=== PATIENT | female | born 1950 | race Caucasian/White ===

== ENCOUNTER 2023-07-11 07:18 | Outpatient (OUT) | payer MEDICARE, OTHER, MEDICAID, SELFPAY ==
[2023-07-11 08:36] LABS: Creatinine Urine Random 157.54 mg/dL (20.00-300.00); Microalbum Creatinine Ratio Ur 16.5 mg/g (0.0-29.9); Microalbumin Urine Random 2.6 mg/dL (<=30.0)
[2023-07-11 09:02] LABS: Alanine Aminotransferase 36 U/L (14-59); Albumin Globulin Ratio 1.1; Alkaline Phosphatase 55 U/L (46-116); Anion Gap 11.8; Aspartate Amino Transferase 16 U/L (15-37); BUN Creatinine Ratio 18.5; Bilirubin Total 0.4 mg/dL (0.2-1.0); Calcium 9.6 mg/dL (8.5-10.1); Carbon Dioxide 30.3 mmol/L (21.0-32.0); Chloride 101 mmol/L (98-107); Chol HDL Ratio 2.5; Cholesterol 157 mg/dL (<=200); Estimated GFR (African America >60 (>=60); Estimated GFR (Non-African Ame 60 (>=60); Globulin 3.7 g/dL; Glucose 133 mg/dL (74-106); HDL Cholesterol 62 mg/dL (40-60); Potassium 4.1 mmol/L (3.5-5.1); Sodium 139 mmol/L (136-145); Total Protein 7.7 g/dL (6.4-8.2); Triglycerides 153 mg/dL (<=150); VLDL CHOLESTEROL 30.6 mg/dL
[2023-07-11 09:52] LABS: Basophils Percent Auto 0.5 % (0.2-2.0); Eosinophils Absolute Auto 0.2 10^3/uL (0.0-0.7); Hematocrit 38.8 % (36.0-48.0); Hemoglobin 12.2 g/dL (12.0-16.0); Immature Granulocytes Abs Auto 0.03 10^3/uL (0.00-0.03); Immature Granulocytes Pct Auto 0.5 % (0.0-0.5); Lymphocytes Absolute Auto 1.9 10^3/uL (1.2-3.8); Lymphocytes Percent Auto 33.4 % (20.5-60.0); Mean Corpuscular HGB Conc 31.4 g/dL (29.9-35.2); Mean Corpuscular Hemoglobin 31.1 pg (26.7-34.0); Mean Platelet Volume 10.4 fL (9.5-13.5); Monocytes Absolute Auto 0.7 10^3/uL (0.3-0.8); Monocytes Percent Auto 11.6 % (1.7-12.0); Neutrophils Absolute Auto 2.9 10^3/uL (1.4-6.5); Platelet Count 269 10^3/uL (150-450); Red Blood Count 3.92 10^6/uL (4.20-5.40); Red Cell Distribution Width 13.1 % (11.0-15.0); White Blood Count 5.8 10^3/uL (4.0-11.0)
== END 2023-07-11 07:19 | disposition home or self-care (01) ==
LOC: LAB 07:28
DX: Z51.81 Encounter for therapeutic drug level monitoring (principal); E11.42 Type 2 diabetes mellitus with diabetic polyneuropathy; E78.2 Mixed hyperlipidemia; E03.9 Hypothyroidism, unspecified; E55.9 Vitamin D deficiency, unspecified; E53.8 Deficiency of other specified B group vitamins
CPT/HCPCS: 36415; 80053; 80061; 82043; 82306; 82570; 82607; 85025

== ENCOUNTER 2024-07-18 07:36 | Outpatient (OUT) | payer MEDICARE, OTHER, MEDICAID, SELFPAY ==
--- OUTSIDE RECORDS SUMMARY | 2024-07-18 07:42 | XMS_ITS | CCD ---
Author Organization [facility] Care Team Providers Care Child Care Lead Teacher Name Role Phone DR HAYDE BERGER Admitting Unavailable DR HAYDE BERGER Attending Unavailable MARIANN IYER Primary Care Unavailable DR HAYDE BERGER Consulting Unavailable GIGI CHATTERJEE Consulting Unavailable DO Mariann Lynn Primary Care Provider DO Mariann Lynn Attending Provider DO Mariann Lynn Primary Care Provider DO Guille Ruiz Attending Provider [phone] DO Billy Bang Emergency Provider DO Mariann Lynn Primary Care Provider Self, Referral Attending Provider Unavailable DO Mariann Lynn Attending Provider Mariann Lynn Primary Care Unavailable Billy Bang Admitting Unavailable Billy Bang Attending Unavailable Mariann Lynn Admitting Unavailable Mariann Lynn Primary Care Unavailable Mariann Lynn Attending Unavailable Self, Referral Admitting Unavailable Self, Referral Attending Unavailable Mariann Lynn Primary Care Unavailable Unavailable Primary Care Provider Unavailabl VICTORINO Cross Referring Unavailable KEENAN WHITFIELD Referring Unavailab VICTORINO Rodriguez Attending Unavailable VICTORINO REMY Admitting Unavailable VICTORINO REMY Referring Unavailable VICTORINO REMY Attending Unavailable Mariann Lynn DO Unavailable Mariann Lynn DO Primary Care Provider Sameer Loera DO Unavailable Fabiola DPMSebastian Unavailable MARIANN LYNN Attending MARIANN Ramírez Referring UnavailMARIANN Gracia Attending UnavailMARIANN Gracia Referring Unavailab SEBASTIAN Monroe Attending Unavailable AMBAR PARKER Attending Unavailable SBEASTIAN HICKS Attending Unavailable SEBASTIAN HICKS Attending Unavailable GUILLE RUIZ Attending Unavailable MARIANN LYNN Attending MARIANN Ramírez Referring UnavailESTELA Pedro Attending Unavailable ESTELA DELGADO Attending Unavailable Medications Current Medications Medication Drug Class(es) Dates Sig (Normalized) Sig (Original) acetaminophen 500 mg oral capsule (20 sources) Start: 07-10-2023 take 1 capsule by mouth every eight hours as needed for pain and pain and arthritis and arthritis Acetaminophen 500 MG capsule Indications: Arthritis Take 1 capsule (500 mg) by mouth every 8 (eight) hours if needed for mild pain or moderate pain 100 capsule 3 07/10/2023 Active Start: 11-26-2017 End: 07-07-2021 acetaminophen (TYLENOL) 500 mg tablet Q6H 07/07/2021 Active atorvastatin 40 mg oral tablet (20 sources) HMG-CoA Reductase Inhibitor Start: 11-26-2017 take 1 tablet by mouth in the morning atorvastatin (Lipitor) 40 MG tablet Indications: Mixed hyperlipidemia (CMS/HCC) TAKE 1 TABLET(40 MG) BY MOUTH IN THE MORNING 90 tablet 3 09/20/2023 Active benoxinate hydrochloride 4 mg/ml / fluorescein sodium 3 mg/ml ophthalmic solution (2 sources) Diagnostic Dye Start: 01-03-2024 End: 01-03-2024 fluorescein-benoxina te 0.3-0.4 % 1 Drop (FLURESS) Start: 01-03-2024 End: 01-03-2024 1 Drop, BOTH EYES, DIRECT ED, Starting on [place] 01/03/24 at 1100, Until [place] 01/03/24 at 2259, Administer for applanation tonometry. In the event of a Fluress shortage, administer 1 drop of Ana-Fluor into both eyes as directed for applanation tonometry., OPHT CLINIC MED ORDERS Benzocaine (5 sources) Standardized Chemical Allergen Start: 07-07-2021 Benzocaine (Orajel) 7.5 % Gel Active EACH MUCOUS MEM Four times daily July 07, 2021 1:00am Start: 07-07-2021 Benzocaine (Or ajel) 7.5 % Gel Active EACH MUCOUS MEM Four times daily July 07, 2021 12:00am beta-carotene,A,-vits C,E/mins (OCUVITE ORAL) (3 sources) beta-carotene,A, -vits C,E/mins (OCUVITE ORAL) Take by mouth. Active bismuth subsalicylate 35 mg/ml oral suspension (5 sources) Bismuth Start: 022 take 1048 mg by mouth once daily Bismuth Subsalicylate (Bismuth) 525 mg/15 mL Suspension Active 1048 MG PO Daily July 07, 2021 1:00am calcium carbonate 1500 mg / cholecalciferol 200 unt oral capsule (20 sources) Vitamin D Start: 018 take 1 tablet by mouth twice daily Calcium Carbonate-Vitamin D3 (Calcium 600 + D(3)) 600 mg calcium- 200 unit Capsule Active 1 TAB PO Twice daily November 26, 2017 12:00am Calcium Carb-Cho lecalciferol 600-200 MG-UNIT tablet every 12 (twelve) hours. Active cholecalciferol 0.125 mg oral capsule (20 sources) Vitamin D Start: 07-10-2023 End: 07-09-2024 take 1 capsule by mouth once daily cholecalciferol 125 MCG (5000 UT) capsule Indications: Vitamin D deficiency Take 1 capsule (125 mcg) by mouth Daily 100 capsule 3 07/10/2023 07/09/2024 Active Start: 11-26-2017 cholecalcifero l (VITAMIN D3) 5,000 unit tab 5,000 Units. 11/26/2017 Active Start: 11-26-2017 take 1 tablet by neli th once daily Cholecalciferol (Vitamin D3) (Vitamin D3) 5,000 unit Tablet Active 5000 UNIT PO Daily November 26, 2017 12:00am cyclobenzaprine hydrochloride 5 mg oral tablet (20 sources) Muscle Relaxant Start: 11-26-2017 take 1 tablet by mouth at bedtime cyclobenzaprine (Flexeril) 5 MG tablet Indications: Muscle spasms of neck TAKE 1 TABLET(5 MG) BY MOUTH AT BEDTIME 90 tablet 3 11/22/2023 Active dextromethorphan hydrobromide 2 mg/ml / guaiFENesin 20 mg/ml oral solution (5 sources) Uncompetitive V-ofxfce-C-asparta te Receptor Antagonist, Sigma-1 Agonist Start: 07-07-2021 take 1 mL by mouth every four hours Dextromethorphan-Gu aifenesin (Guaifenesin Dm) 10-100 mg/5 mL Syrup Active 5 ML PO Q4H July 07, 2021 1:00am diclofenac sodium 0.01 mg/mg topical gel (20 sources) Nonsteroidal Anti-inflammatory Drug diclofenac sodium 1 % gel as directed Externally Active Docusate (1 source) DOCUSATE SODIUM ORAL Take 500 mg by mouth. Active FLUoxetine 20 mg oral capsule (20 sources) Serotonin Reuptake Inhibitor Start: 07-07-2021 End: 05-05-2025 take 1 capsule by mouth once daily FLUoxetine (PROzac) 20 MG capsule Indications: Anxiety Take 1 capsule (20 mg) by mouth Daily 100 capsule 3 05/05/2024 05/05/2025 Active Garlic preparation (8 sources) Non-Standardized Food Allergenic Extract Start: 07-07-2021 GARLIC Q48H 07/07/2021 Active Start: 07-07-2021 Garlic Active 500 MG PO Q48H July 07, 2021 1:00am Start: 07-07-2021 Garlic Active 500 MG PO Q48H July 07, 2021 12:00am ibuprofen 600 mg oral tablet (5 sources) Nonsteroidal Anti-inflammatory Drug Start: 07-07-2021 take 600 mg by mouth every six hours Ibuprofen Active 600 MG PO Q6H July 07, 2021 1:00am lamoTRIgine 200 mg oral tablet (20 sources) Mood Stabilizer, Anti-epileptic Agent Start: 05-05-2024 take 1 tablet by mouth in the morning lamoTRIgine (LaMICtal) 200 MG tablet Indications: Psychogenic nonepileptic seizure (CMS/HCC) Take 1 tablet (200 mg) by mouth in the morning and 1 tablet (200 mg) before bedtime. 180 tablet 3 05/05/2024 Active Start: 07-11-2023 take 1 tablet by neli th twice daily lamoTRIgine (LaMICtal) 200 MG tablet Indications: Psychogenic nonepileptic seizure (CMS/HCC) TAKE 1 TABLET BY MOUTH TWICE DAILY 180 tablet 3 07/11/2023 Active Start: 11-26-2017 take 200 mg by mouth twice daily Lamotrigine Active 200 MG PO Twice daily November 26, 2017 12:00am levothyroxine sodium 0.075 mg oral tablet (20 sources) l-Thyroxine Start: 07-07-2021 take 1 tablet by mouth before mealtime levothyroxine (Synthroid, Levoxyl) 75 MCG tablet Indications: Hypothyroidism (acquired) (CMS/HCC) Take 1 tablet (75 mcg) by mouth in the morning. Take before meals. 90 tablet 3 07/16/2023 Active Start: 01-02-2019 End: 07-07-2021 take 88 ug by mouth once daily Levothyroxine Discontin ued 88 MCG PO Daily January 02, 2019 12:00am July 07, 2021 6:20pm Start: 11-26-2017 End: 01-02-2019 take 1 tablet by mouth once daily Levothyroxine (Synthroid) 100 mcg Tablet Discontinued 100 MCG PO Daily November 26, 2017 12:00am January 02, 2019 11:41am loratadine 10 mg oral tablet (20 sources) Start: 07-07-2021 End: 07-09-2024 take 1 tablet by mouth once daily loratadine (Claritin) 10 MG tablet Indications: Chronic allergic rhinitis Take 1 tablet (10 mg) by mouth Daily 100 tablet 3 07/10/2023 Active LORazepam 0.5 mg oral tablet (20 sources) Benzodiazepine Start: 11-19-2023 End: 02-08-2024 LORazepam (Ativan) 0.5 MG tablet Indications: Anxiety One tablet the night before appointments and one tablet the day of appointments 2 tablet 11/19/2023 Active memantine hydrochloride 5 mg oral tablet (20 sources) T-cjiggt-A-aspartate Receptor Antagonist Start: 02-25-2024 take 1 tablet by mouth in the morning memantine (Namenda) 5 MG tablet Indications: MCI (mild cognitive impairment) Take 1 tablet (5 mg) by mouth in the morning and 1 tablet (5 mg) before bedtime. 180 tablet 3 02/25/2024 Active Start: 12-30-2018 take 1 tablet by neli th in the morning memantine (Namenda) 5 MG tablet Indications: MCI (mild cognitive impairment) Take 1 tablet (5 mg) by mouth in the morning and 1 tablet (5 mg) before bedtime. 180 tablet 1 07/16/2023 Active take 1 tablet by neli th once daily in the morning, then take 1 tablet by mouth once daily at bedtime memantine (NAMENDA) 5 mg tablet TAKE 1 TABLET BY MOUTH EVERY MORNING AND 1 TABLET EVERY NIGHT AT BEDTIME Active metFORMIN hydrochloride 850 mg oral tablet (20 sources) Biguanide Start: 07-07-2021 take 1 tablet by mouth at mealtime metFORMIN (Glucophage) 850 MG tablet Indications: Type 2 diabetes mellitus with peripheral neuropathy (CMS/HCC) TAKE 1 TABLET(850 MG) BY MOUTH IN THE MORNING AND IN THE EVENING WITH MEALS 180 tablet 3 07/16/2023 Active Start: 11-26-2017 End: 07-07-2021 take 500 mg by mouth twice daily Metformin Discontinued 500 MG PO Twice daily November 26, 2017 12:00am July 07, 2021 6:21pm Multiple Vitamins-Minerals (Centrum Women) tablet (17 sources) Multiple Vitamin s-Minerals (Centrum Women) tablet 1 (one) time each day at the same time. Active Multiple Vitamins-Minerals (OCUVITE ADULT 50+ PO) (17 sources) take 1 tablet by mouth in the morning Multiple Vitamins-Minerals (OCUVITE ADULT 50+ PO) Take 1 tablet by mouth in the morning. Active Multivitamin preparation (5 sources) Start: 12-30-2018 take 1 capsule by mouth once daily in the morning Multivitamin Active 1 CAP PO Every morning December 30, 2018 12:00am Start: 12-30-2018 take 1 capsule by mo uth once daily in the morning Multivitamin Active 1 CAP PO Every morning December 29, 2018 11:00pm naproxen 250 mg oral tablet (20 sources) Nonsteroidal Anti-inflammatory Drug Start: 07-07-2021 take 1 tablet by mouth twice daily at mealtime naproxen (Naprosyn) 250 MG tablet Indications: Chronic gout of multiple sites, unspecified cause , Arthritis TAKE 1 TABLET BY MOUTH TWICE DAILY WITH FOOD OR MILK 100 tablet 2 07/10/2023 Active ofloxacin 3 mg/ml ophthalmic solution (3 sources) Quinolone Antimicrobial Start: 01-03-2024 End: 04-02-2024 take 1 drop(s) into the eye(s) four times daily, then take 1 drop(s) into the eye(s) four times daily ofloxacin (OCUFLOX) 0.3 % ophthalmic solution 1 Drop four times daily. One drop in the OPERATIVE EYE only four times a day starting the day before surgery 10 mL 1 01/03/2024 04/02/2024 Active phenylephrine hydrochloride 25 mg/ml ophthalmic solution (2 sources) alpha-1 Adrenergic Agonist Start: 01-03-2024 End: 01-03-2024 PHENYLephrine 2.5 % 1 Drop (AK-DILATE, STEPHANIE-SYNEPHRINE) Start: 01-03-2024 End: 01-03-2024 1 Drop, BOTH EYES, DIRECT ED, Starting on [place] 01/03/24 at 1100, Until [place] 01/03/24 at 2259, Administer for dilation PROTECT FROM LIGHT, OPHT CLINIC MED ORDERS polyethylene glycol 3350 09278 mg powder for oral solution (8 sources) Osmotic Laxative Start: 07-07-2021 polyethylene glycol 3350 17 gram packet Take 17 g by mouth. 07/07/2021 Active Polyethylene Glycols (17 sources) take 17 g by mouth once daily polyethylene glycol, PEG, 3350 (Glycolax, Miralax) powder Take 17 g by mouth Daily Active sodium fluoride 0.011 mg/mg toothpaste (20 sources) Start: 08-29-2023 PreviDent 5000 Booster Plus 1.1 % paste BRUSH AT BEDTIME- SPIT OUT AND DO NOT RINSE 09/26/2023 Active tropicamide 10 mg/ml ophthalmic solution (2 sources) Anticholinergic Start: 01-03-2024 End: 01-03-2024 tropicamide 1 % 1 Drop (MYDRIACYL) Start: 01-03-2024 End: 01-03-2024 1 Drop, BOTH EYES, DIRECT ED, Starting on Sun01/03/24 at 1100, Until [place] 01/03/24 at 2259, Administer for dilation, OPHT CLINIC MED ORDERS Vit C-E-Zinc Die-Jivxyl-Xyhegf (uvselect [facility]) 50 mg-15 unit- 4.5 mg-2.5 mg Tablet,Chewable (5 sources) Start: 11-26-2017 take 1 tablet by mouth once daily Vit C-E-Zinc Qzo-Coleds-Dpnwir (Ocuvite [facility]) 50 mg-15 unit- 4.5 mg-2.5 mg Tablet,Chewable Active 1 TAB PO Daily November 26, 2017 12:00am Start: 11-26-2017 take 1 tablet by neli th once daily Vit C-E-Zinc Phj-Xppefh-Lazivy ([facility]cuv[facility]) 50 mg-15 unit- 4.5 mg-2.5 mg Tablet,Chewable Active 1 TAB PO Daily November 25, 2017 11:00pm vitamin b12 0.5 mg oral tablet (20 sources) Vitamin B12 Start: 07-10-2023 End: 07-09-2024 take 2 tablets by mouth once daily cyanocobalamin (Vitamin B-12) 500 MCG tablet Indications: Vitamin B12 deficiency Take 2 tablets (1,000 mcg) by mouth Daily 200 tablet 3 07/10/2023 07/09/2024 Active Start: 07-07-2021 cyanocobalamin (VITAMIN B-12) 1,000 mcg tab once daily. 07/07/2021 Active Completed/Discontinued Medications Medication Drug Class(es) Dates Sig (Normalized) Sig (Original) busPIRone hydrochloride 10 mg oral tablet (5 sources) Start: 11-26-2017 End: 12-30-2018 take 10 mg by mouth three times daily Buspirone Discontinued 10 MG PO Three times daily November 26, 2017 12:00am December 30, 2018 9:58am cobamamide 0.1 mg / vitamin b12 5 mg sublingual tablet (5 sources) Vitamin B12 Start: 12-30-2018 End: 07-07-2021 Cyanocobalamin-Alban mamide (B12) 5,000-100 mcg Lozenge Discontinued 1000 MCG SUBLINGUAL Daily December 30, 2018 12:00am July 07, 2021 6:22pm Iron (10 sources) Start: 01-02-2019 End: 07-07-2021 Iron Discontinued 28 MG PO Q48H 0 January 02, 2019 8:13am July 07, 2021 6:27pm Start: 01-02-2019 End: 07-07-2021 Iron Discontinued 28 MG PO Q 48H 0 January 02, 2019 7:13am July 07, 2021 5:27pm Start: 12-30-2018 End: 01-02-2019 take 28 mg by mouth once daily Iron Discontinued 28 MG PO Daily December 30, 2018 12:00am January 02, 2019 11:41am Start: 12-30-2018 End: 01-02-2019 take 28 mg by mouth once daily Iron Discontinued 28 MG PO Daily December 29, 2018 11:00pm January 02, 2019 10:41am Guy-3 Fatty Acids (Fish Oil Concentrate) 1,000 mg Capsule (5 sources) Start: 11-26-2017 End: 07-07-2021 take 1 capsule by mouth once daily Guy-3 Fatty Acids (Fish Oil Concentrate) 1,000 mg Capsule Discontinued 1000 MG PO Daily November 26, 2017 12:00am July 07, 2021 6:27pm Start: 11-26-2017 End: 07-07-2021 take 1 capsule by mouth once daily Guy-3 Fatty Acids (Fish Oil Concentrate) 1,000 mg Capsule Discontinued 1000 MG PO Daily November 25, 2017 11:00pm July 07, 2021 5:27pm divalproex sodium 500 mg delayed release oral tablet (5 sources) Mood Stabilizer, Anti-epileptic Agent Start: 11-26-2017 End: 12-30-2018 take 1 tablet by mouth twice daily Divalproex (Depakote) 500 mg Tablet,Delayed Release (Dr/Ec) Discontinued 500 MG PO Twice daily November 26, 2017 12:00am December 30, 2018 9:59am Problems Active Problems Problem Classification Problem Date Documented Date Episodic/Chronic Anxiety disorders (20 sources) Anxiety; Translations: [Anxiety disorder, unspecified] Onset: 03-01-2020 01-28-2024 Chronic Cataract (14 sources) Senile combined form cataract of right eye; Translations: [Combined forms of age-related cataract, right eye] Onset: 01-03-2024 01-03-2024 Chronic Diabetes mellitus with complications (20 sources) Peripheral neuropathy due to type 2 diabetes mellitus; Translations: [Type 2 diabetes mellitus with diabetic polyneuropathy] Onset: 07-15-2018 Resolved: 12-07-2022 01-09-2024 Chronic Diabetes mellitus without complication (8 sources) Diabetes mellitus type 2 without retinopathy; Translations: [Type 2 diabetes mellitus without complications] Onset: 03-01-2020 01-03-2024 Chronic Disorders of lipid metabolism (20 sources) Hyperlipidemia; Translations: [Hyperlipidemia, unspecified] Onset: 03-01-2020 01-28-2024 Chronic E Codes: Fall (5 sources) Fall; Translations: [Unspecified fall, initial encounter] 07-07-2021 Episodic Epilepsy; convulsions (20 sources) Temporal lobe epilepsy; Translations: [Localization-relate d (focal) (partial) symptomatic epilepsy and epileptic syndromes with simple partial seizures, not intractable, without status epilepticus] Onset: 03-01-2020 Resolved: 12-07-2022 12-30-2018 Chronic Epilepsy; convulsions (5 sources) Neurological finding; Translations: [Unspecified convulsions] 09-01-2021 Episodic Gout and other crystal arthropathies (20 sources) Gouty arthritis of multiple sites; Translations: [Idiopathic chronic gout, multiple sites, without tophus (tophi)] Onset: 03-01-2020 Resolved: 12-07-2022 11-16-2022 Chronic Miscellaneous mental health disorders (20 sources) Dissociative convulsions; Translations: [Conversion disorder with seizures or convulsions] Onset: 11-16-2022 01-28-2024 Chronic Nutritional deficiencies (18 sources) Vitamin D deficiency; Translations: [Vitamin D deficiency, unspecified] Onset: 10-05-2017 11-16-2022 Chronic Other aftercare (1 source) Patient encounter status; Translations: [Encounter for therapeutic drug level monitoring] 07-08-2024 Episodic Other connective tissue disease (5 sources) Synovial cyst of knee; Translations: [Synovial cyst of popliteal space [Sandy], unspecified knee] 03-22-2019 Episodic Other ear and sense organ disorders (20 sources) Sensorineural hearing loss, bilateral; Translations: [Sensorineural hearing loss, bilateral] Onset: 11-16-2022 11-16-2022 Chronic Other eye disorders (4 sources) Bilateral optic atrophy of eyes; Translations: [Other optic atrophy, bilateral] Onset: 01-03-2024 01-03-2024 Chronic Other eye disorders (4 sources) Tear film insufficiency of bilateral eyes; Translations: [Dry eye syndrome of bilateral lacrimal glands] Onset: 01-03-2024 01-03-2024 Episodic Other eye disorders (4 sources) Ptosis of eyelid; Translations: [Unspecified ptosis of bilateral eyelids] Onset: 01-03-2024 01-03-2024 Episodic Other fractures (3 sources) Compression fracture of lumbar spine; Translations: [Wedge compression fracture of unspecified lumbar vertebra, initial encounter for closed fracture] 12-04-2022 Episodic Other hereditary and degenerative nervous system conditions (20 sources) Impaired cognition; Translations: [Mild cognitive impairment, so stated] Onset: 11-16-2022 12-30-2018 Chronic Other hereditary and degenerative nervous system conditions (1 source) Mild cognitive impairment, so stated; Translations: [Mild cognitive impairment of uncertain or unknown etiology] Onset: 01-28-2024 Chronic Other non-traumatic joint disorders (5 sources) Pain in unspecified knee; Translations: [Acute knee pain] 03-22-2019 Episodic Superficial injury; contusion (5 sources) Contusion of face; Translations: [Contusion of other part of head, initial encounter] 07-07-2021 Episodic Thyroid disorders (20 sources) Acquired hypothyroidism; Translations: [Hypothyroidism, unspecified] Onset: 03-01-2020 01-28-2024 Chronic Past or Other Problems Problem Classification Problem Date Documented Date Episodic/Chronic Acquired foot deformities (17 sources) Acquired hammer toe of left foot; Translations: [Other hammer toe(s) (acquired), left foot] Onset: 11-16-2022 Resolved: 12-07-2022 12-07-2022 Chronic Delirium, dementia, and amnestic and other cognitive disorders (17 sources) Mild cognitive disorder ; Translations: [Unspecified mental disorder due to known physiological condition] Onset: 10-11-2017 Resolved: 12-07-2022 12-07-2022 Chronic Diseases of mouth; excluding dental (17 sources) Xerostomia; Translations: [Dry mouth, unspecified] Onset: 03-01-2020 11-16-2022 Episodic Mycoses (17 sources) Onychomycosis; Translations: [Tinea unguium] Onset: 12-27-2022 12-27-2022 Episodic Nutritional deficiencies (20 sources) Cobalamin deficiency; Translations: [Deficiency of other specified B group vitamins] Onset: 07-10-2023 01-28-2024 Episodic Osteoarthritis (17 sources) Arthritis of left knee; Translations: [Unilateral primary osteoarthritis, left knee] Onset: 11-16-2022 Resolved: 12-07-2022 12-07-2022 Chronic Other connective tissue disease (4 sources) Pain in left finger(s); Translations: [PAIN IN LEFT FINGERS] Onset: 08-03-2020 Episodic Other connective tissue disease (17 sources) Metatarsalgia of right foot; Translations: [Metatarsalgia, right foot] Onset: 12-27-2022 12-27-2022 Episodic Other ear and sense organ disorders (19 sources) Bilateral tinnitus; Translations: [Tinnitus, bilateral] Onset: 11-16-2022 11-16-2022 Episodic Other nervous system disorders (20 sources) Tremor; Translations: [Tremor, unspecified] Onset: 09-03-2023 12-30-2018 Episodic Other screening for suspected conditions (not mental disorders or infectious disease) (8 sources) Encounter for screening for osteoporosis; Translations: [Encounter for screening mammogram for malignant neoplasm of breast] Onset: 11-22-2023 11-22-2023 Episodic Residual codes; unclassified (11 sources) H/O: breast problem; Translations: [Personal history of other specified conditions] Onset: 11-16-2022 02-03-2024 Episodic Residual codes; unclassified (6 sources) Past history of procedure; Translations: [Personal history of other specified conditions] Onset: 11-16-2022 11-22-2023 Episodic Skin and subcutaneous tissue infections (1 source) Local infection of the skin and subcutaneous tissue, unspecified; Translations: [LOCAL INFECT SKIN SUBQ TISSUE UNS] Onset: 08-05-2020 Episodic Spondylosis; intervertebral disc disorders; other back problems (4 sources) Backache; Translations: [Dorsalgia, unspecified] Onset: 12-04-2022 12-04-2022 Episodic Results Test Name Value Interpretation Reference Range Facility [id number] 02-20-2024 [id number] HNO ID: [id number] Author: LISA MCKEON RN Service: ? Author Type: Registered Nurse Type: [id number] Filed: 02/20/2024 10:53 Note Text: Starting on 02/21/24- Pt to wear eye shield at HS and if she is to lay down for nap. Pt may needed assistance with ADLs such as bathing and hair washing due to strict restrictions on not being able to get soap or water in her eye for 2 weeks. Please accommodate as needed. Normal [facility] ANES POSTPROC EVALon 024 ANES POSTPROC EVAL HNO ID: [id number] Author: GUILLE VILLALTA II, DO Service: Anesthesiology Author Type: Anesthesiologist Type: Anesthesia Postprocedure Evaluation Filed: 02/20/2024 11:24 Note Text: POST ANESTHESIA EVALUATION NOTE : 1950 Procedure Summary Date: 02/20/24 Room / Location: [address] Anesthesia Start: 101 Anesthesia Stop: 104 Procedures: PHACOEMULSIFICATION CATARACT IMPLANT INTRAOCULAR LENS W/O ENDOSCOPIC CYCLOPHOTOCOAGULATION (Left: Eye) OPHTHALMIC BIOMETRY BY PARTIAL COHERENCE INTERFEROMETRY W/INTRAOCULAR LENS POWER CALCULATION (Left: Eye) Diagnosis: Combined forms of age-related cataract of left eye (Combined forms of age-related cataract of left eye [H25.812]) Surgeons: Victorino Remy MD Responsible Provider: Guille Villalta II, DO Anesthesia Type: general ASA Status: 3 Anesthesia Type: general Airway Type: LMA Last Vitals Vitals Value Taken Time BP 124/56 02/20/24 1100 Temp 36.1 ?C (97 ?F) 02/20/24 1100 Pulse 73 02/20/24 1100 Resp 16 02/20/24 1100 SpO2 97 % 02/20/24 1100 Post Anesthesia Patient Status Patient Evaluation: PACU. PACU/ICU Patient Condition: stable. Neurological Status: aware and responsive. Pulmonary Status: breathing comfortably on room air Airway Control: returned to baseline unsupported. Cardiovascular Status: stable. Pain Management: clinically adequate Postoperative Hydration: acceptable. Intraoperative Events: no significant anesthesia events Post Operative Nausea/Vomiting Status: no significant post operative nausea or vomiting Recommendation: continue current plan of care. Anesthesia Observations No Documentation SIGNATURE: Guille Villalta II, DO PATIENT NAME: Eva Mercado DATE: February 20, 2024 TIME: 11:23 AM CSN: [id number] Normal [facility] ANES PRE-OPon 02-20-2024 ANES PRE-OP HNO ID: [id number] Author: GUILLE VILLALTA II, DO Service: Anesthesiology Author Type: Anesthesiologist Type: Anesthesia Preprocedure Evaluation Filed: 02/20/2024 09:39 Note Text: ANESTHESIOLOGY DAY OF SURGERY NOTE : 1950 Procedure Information Date/Time: 02/20/24 1005 Procedures: PHACOEMULSIFICATION CATARACT IMPLANT INTRAOCULAR LENS W/O ENDOSCOPIC CYCLOPHOTOCOAGULATION (Left: Eye) OPHTHALMIC BIOMETRY BY PARTIAL COHERENCE INTERFEROMETRY W/INTRAOCULAR LENS POWER CALCULATION (Left: Eye) Location: [address] Surgeons: Victorino Remy MD Estimated body mass index is 28.62 kg/m? as calculated from the following: Height as of 01/29/24: 165.1 cm (5' 5 ). Weight as of 01/29/24: 78 kg (171 lb 15.3 oz). Most recent hematocrit and potassium results: No results found for this basename: HCT,HEMATOCRIT,K,POTASSIUM Relevant Problems ENDO (+) Hypothyroidism (acquired) (+) Type 2 diabetes mellitus (HCC) (+) Type 2 diabetes mellitus without retinopathy (HCC) NEURO-PSYCH (+) Psychogenic nonepileptic seizure (+) Temporal lobe epilepsy (HCC) I - PHYSICAL EVALUATION AIRWAY Patient intubated: No. Tracheostomy tube not present Mallampati: III. TM distance: >3 FB. Neck ROM: limited extension. Mouth opening: adequate. Short neck: no. Thick neck: no DENTAL Dental findings: teeth intact. Additional exam findings: yes. CARDIOVASCULAR Rhythm: regular Rate: normal PULMONARY Breath sounds clear to auscultation. II - ANESTHESIA PLAN ASA Score: 3 Anesthetic Plan: general Airway type: LMA The patient is not a current smoker. NPO Status: adequate Beta Jo Monitoring Plan Monitoring plan: standard ASA. Post Procedure Analgesic Plan Postoperative analgesic plan: parenteral or oral opioids. Informed Consent Anesthetic risks, benefits, alternatives, personnel and consent discussed: yes. Patient / Responsible Libertarian agrees to proceed: yes Patient / Surrogate agrees to blood products: Yes No vitals data found for the desired time range. Facility-Administered Medications as of 02/20/2024 Medication Dose Route Frequency - NaCl 0.9% iv infusion 30 mL/hr INTRAVENOUS CONTINUOUS - tetracaine (PF) 0.5 % 2 Drop (OPTICAINE) 2 Drop LEFT EYE EVERY 5 MINUTES X 3 DOSES - PHENYLephrine 2.5 % 1 Drop (AK-DILATE, STEPHANIE-SYNEPHRINE) 1 Drop LEFT EYE EVERY 5 MINUTES X 3 DOSES - tropicamide 1 % 1 Drop (MYDRIACYL) 1 Drop LEFT EYE EVERY 5 MINUTES X 3 DOSES - cyclopentolate 1 % 1 Drop (CYCLOGYL) 1 Drop LEFT EYE Pre-Op PRN - keTORolac 0.5 % 1 Drop (ACULAR) 1 Drop LEFT EYE q 5 MIN - Povidone-Iodine 5 % 30 mL ophth soln (BETADINE) 30 mL LEFT EYE ONCE - balanced salts 15 mL (BSS) 15 mL LEFT EYE ONCE - [COMPLETED] tetracaine (PF) 0.5 % 2 Drop (OPTICAINE) 2 Drop RIGHT EYE EVERY 5 MINUTES X 3 DOSES - [COMPLETED] PHENYLephrine 2.5 % 1 Drop (AK-DILATE, STEPHANIE-SYNEPHRINE) 1 Drop RIGHT EYE EVERY 5 MINUTES X 3 DOSES - [COMPLETED] tropicamide 1 % 1 Drop (MYDRIACYL) 1 Drop RIGHT EYE EVERY 5 MINUTES X 3 DOSES - [COMPLETED] keTORolac 0.5 % 1 Drop (ACULAR) 1 Drop RIGHT EYE q 5 MIN - [COMPLETED] Povidone-Iodine 5 % 30 mL ophth soln (BETADINE) 30 mL RIGHT EYE ONCE - [COMPLETED] balanced salts 15 mL (BSS) 15 mL RIGHT EYE ONCE Outpatient Medications as of 02/20/2024 Medication Sig - prednisoLONE acetate (PRED FORTE) 1 % ophthalmic suspension Use one drop in operative eye as directed by Dr. Remy starting tomorrow. - keTORolac (ACULAR) 0.5 % ophthalmic solution Use one drop in operative eye as directed by Dr. Remy starting tomorrow. - acetaminophen (TYLENOL) 500 mg tablet Q6H - atorvastatin (LIPITOR) 40 mg tablet TAKE 1 TABLET(40 MG) BY MOUTH IN THE MORNING - cholecalciferol (VITAMIN D3) 5,000 unit tab 5,000 Units. - cyanocobalamin (VITAMIN B-12) 1,000 mcg tab once daily. - cyclobenzaprine (FLEXERIL) 5 mg tablet TAKE 1 TABLET(5 MG) BY MOUTH AT BEDTIME - FLUoxetine (PROZAC) 20 mg capsule Take 20 mg by mouth. - loratadine (CLARITIN) 10 mg tablet Take 1 tablet by mouth once daily. - LORazepam (ATIVAN) 0.5 mg One tablet the night before appointments and one tablet the day of appointments - metFORMIN (GLUCOPHAGE) 850 mg tablet TAKE 1 TABLET(850 MG) BY MOUTH IN THE MORNING AND IN THE EVENING WITH MEALS - polyethylene glycol 3350 17 gram packet Take 17 g by mouth. - GARLIC Q48H I have interviewed and examined the patient. I have reviewed the medical record and/or the pre-anesthesia evaluation, pertinent labs, and test results. This contains updated information obtained within 48 hours of Surgery/Procedure. SIGNATURE: Guille Villalta II, DO PATIENT NAME: Eva Mercado DATE: February 20, 2024 TIME: 9:38 AM CSN: [id number] Normal [facility] OPERATIVE NOon 02-20-2024 OPERATIVE NO HNO ID: [id number] Author: VICTORINO REMY MD Service: Ophthalmology Author Type: Physician Type: Operative Report Filed: 02/20/2024 10:34 Note Text: OPERATIVE/PROCEDURE REPORT LOG ID: [id number] Surgery/Procedure Date: 02/20/2024 Incision/Procedure Start Time: 10:24 AM Incision Close/Procedure End Time: 10:30 AM Surgeon(s)/Proceduralist(s ) and Riding Teacher(s): Surgeons and Role: * Victorino Remy MD - Primary Riding Teacher: None. Any nurse listed as assisting or otherwise participating in this case has performed only the duties of a circulating nurse. Anesthesia: General Pre-Op/Pre-Procedure Diagnosis: Pre-Op Diagnosis Codes: * Combined forms of age-related cataract of left eye [H25.812] Post-Op/Post-Procedure Diagnosis: Post-Op Diagnosis Codes: * Combined forms of age-related cataract of left eye [H25.812] Procedure(s): Procedure(s) (LRB): PHACOEMULSIFICATION CATARACT IMPLANT INTRAOCULAR LENS W/O ENDOSCOPIC CYCLOPHOTOCOAGULATION (Left) OPHTHALMIC BIOMETRY BY PARTIAL COHERENCE INTERFEROMETRY W/INTRAOCULAR LENS POWER CALCULATION (Left) Procedure Details: The patient was brought to the operating room and placed in the supine position on the operating table in the usual fashion. An IV was in place, as well as EKG, and BP monitoring. Nasal oxygen was administered. A Time Out was conducted confirming the correct patient, correct eye, correct surgery, correct implant and all allergies. The [employer] Lens verification Policy was meticulously followed as previously approved with both an initial lens verification by myself in the presence of the Nurse Coordinator and the field technician and a secondary full lens verification as part of the Time Out, with patient identity, laterality, and lens choice confirmed against the source document by myself, the Contracts Advisor Nurse, and the field technician. Topical lidocaine gel 2% was placed in a small ribbon in the lower cul-de-sac. The patient was prepped and draped in the usual sterile manner and a wire lid speculum was used to keep the eyelids open. A scleral groove was created at the superotemporal limbus and a keratome blade was used to tunnel forward from the groove approximately 1 mm into clear cornea before the anterior chamber was entered. The blade was used to sandoval the central anterior lens capsule. After the anterior chamber was filled with viscoelastic, the Utrata forceps were used to create a continuous curvilinear capsulorrhexis of approximately 5.5 mm round. Gentle hydrodissection was accomplished using preservative-free lidocaine on a 27-guage cannula. Using the Al phacoemulsification unit with the [place] curved tip, the anterior chamber was entered and the nucleus was removed while it was in the bag. The epinuclear ring was dissected into several segments, then removed using the phacoemulsification unit set to the desired aspiration flow rate and ultrasound parameters. Great care was taken not to violate the posterior capsule. The phaco CDE was 30.21. The irrigation/aspiration (I and A) device was then used to remove residual cortex. At the conclusion of the I and A, the posterior capsule was polished and then noted to be clean and intact. The lens capsule was filled with viscoelastic and the foldable 23.5 diopter lens was inserted atraumatically into the capsular bag (see implants below for lens information). The lens was observed to center nicely. The I and A device was again used to remove residual viscoelastic. Intracameral Moxifloxacin 0.1 cc was injected. The wound was tested and found to be watertight. The speculum was removed. Drops of ketorolac (if not allergic), timolol and prednisolone were instilled. A shield was applied and the patient left the operating room in stable condition without complications. Estimated Blood Loss: 0 ml Specimens: None. I have reviewed the images and report from the Ophthalmic Biometry February 20, 2024 to determine the Intraocular lens Power Calculation for the IOL lens implant. I have interpreted and agree with the calculation of the IOL as listed below. Implants: Implant Name Type Inv. Item Serial No. Social Services Analyst Lot No. LRB No. Used Action Model No. CC60WF.235 [employer] - [id number] Intraocular Lens [id number] [employer] [id number] [employer]GICAL Left 1 Implanted [id number] Drains: None. Complications: None. I performed the entire procedure. Comanage with Dr[facility] Whitfield[facility]. SIGNATURE: Victorino Remy MD PATIENT NAME: Eva Mercado DATE: February 20, 2024 TIME: 10:33 AM PAGER/CONTACT #: Normal [facility] ANES POSTPROC EVALon 024 ANES POSTPROC EVAL HNO ID: [id number] Author: GUILLE VILLATLA II, DO Service: Anesthesiology Author Type: Anesthesiologist Type: Anesthesia Postprocedure Evaluation Filed: 02/06/2024 11:38 Note Text: POST ANESTHESIA EVALUATION NOTE : 1950 Procedure Summary Date: 02/06/24 Room / Location: [address] Anesthesia Start: 951 Anesthesia Stop: 1018 Procedures: PHACOEMULSIFICATION CATARACT IMPLANT INTRAOCULAR LENS W/O ENDOSCOPIC CYCLOPHOTOCOAGULATION (Right: Eye) OPHTHALMIC BIOMETRY BY PARTIAL COHERENCE INTERFEROMETRY W/INTRAOCULAR LENS POWER CALCULATION (Right: Eye) Diagnosis: Combined forms of age-related cataract of right eye (Combined forms of age-related cataract of right eye [H25.811]) Surgeons: Victorino Remy MD Responsible Provider: Guille Villalta II, DO Anesthesia Type: general ASA Status: 3 Anesthesia Type: general Airway Type: LMA Last Vitals Vitals Value Taken Time BP 156/71 02/06/24 1047 Temp 36.1 ?C (97 ?F) 02/06/24 1014 HR SpO2 72 02/06/24 1047 Resp 16 02/06/24 1047 SpO2 99 % 02/06/24 1047 Post Anesthesia Patient Status Patient Evaluation: PACU. PACU/ICU Patient Condition: stable. Neurological Status: aware and responsive. Pulmonary Status: breathing comfortably on room air Airway Control: returned to baseline unsupported. Cardiovascular Status: stable. Pain Management: clinically adequate Postoperative Hydration: acceptable. Intraoperative Events: no significant anesthesia events Post Operative Nausea/Vomiting Status: no significant post operative nausea or vomiting Recommendation: continue current plan of care. Anesthesia Observations No Documentation SIGNATURE: Guille Villalta II, DO PATIENT NAME: Eva Mercado DATE: February 06, 2024 TIME: 11:38 AM CSN: [id number] Normal [facility] ANES PRE-OPon 02-06-2024 ANES PRE-OP HNO ID: [id number] Author: GUILLE VILLALTA II, DO Service: Anesthesiology Author Type: Anesthesiologist Type: Anesthesia Preprocedure Evaluation Filed: 02/06/2024 09:23 Note Text: ANESTHESIOLOGY DAY OF SURGERY NOTE : 1950 Procedure Information Date/Time: 02/06/24 0950 Procedures: PHACOEMULSIFICATION CATARACT IMPLANT INTRAOCULAR LENS W/O ENDOSCOPIC CYCLOPHOTOCOAGULATION (Right: Eye) OPHTHALMIC BIOMETRY BY PARTIAL COHERENCE INTERFEROMETRY W/INTRAOCULAR LENS POWER CALCULATION (Right: Eye) Location: [place] [id number] / [facility] Surgeons: Victorino Remy MD Estimated body mass index is 28.62 kg/m? as calculated from the following: Height as of 01/29/24: 165.1 cm (5' 5 ). Weight as of 01/29/24: 78 kg (171 lb 15.3 oz). Most recent hematocrit and potassium results: No results found for this basename: HCT,HEMATOCRIT,K,POTASSIUM Relevant Problems ENDO (+) Hypothyroidism (acquired) (+) Type 2 diabetes mellitus (HCC) (+) Type 2 diabetes mellitus without retinopathy (HCC) NEURO-PSYCH (+) Psychogenic nonepileptic seizure (+) Temporal lobe epilepsy (HCC) I - PHYSICAL EVALUATION AIRWAY Patient intubated: No. Tracheostomy tube not present Mallampati: III. TM distance: >3 FB. Neck ROM: limited extension. Mouth opening: adequate. Short neck: no. Thick neck: no DENTAL Dental findings: chipped. Additional exam findings: yes. CARDIOVASCULAR Rhythm: regular Rate: normal PULMONARY Breath sounds clear to auscultation. II - ANESTHESIA PLAN ASA Score: 3 Anesthetic Plan: general Airway type: LMA The patient is not a current smoker. NPO Status: adequate Beta Jo Monitoring Plan Monitoring plan: standard ASA. Post Procedure Analgesic Plan Postoperative analgesic plan: parenteral or oral opioids. Informed Consent Anesthetic risks, benefits, alternatives, personnel and consent discussed: yes. Patient / Responsible Libertarian agrees to proceed: yes Patient / Surrogate agrees to blood products: Yes No vitals data found for the desired time range. No current facility-administered medications on file as of 02/06/2024. Outpatient Medications as of 02/06/2024 Medication Sig - acetaminophen (TYLENOL) 500 mg tablet Q6H - atorvastatin (LIPITOR) 40 mg tablet TAKE 1 TABLET(40 MG) BY MOUTH IN THE MORNING - cholecalciferol (VITAMIN D3) 5,000 unit tab 5,000 Units. - cyanocobalamin (VITAMIN B-12) 1,000 mcg tab once daily. - cyclobenzaprine (FLEXERIL) 5 mg tablet TAKE 1 TABLET(5 MG) BY MOUTH AT BEDTIME - FLUoxetine (PROZAC) 20 mg capsule Take 20 mg by mouth. - loratadine (CLARITIN) 10 mg tablet Take 1 tablet by mouth once daily. - LORazepam (ATIVAN) 0.5 mg One tablet the night before appointments and one tablet the day of appointments - metFORMIN (GLUCOPHAGE) 850 mg tablet TAKE 1 TABLET(850 MG) BY MOUTH IN THE MORNING AND IN THE EVENING WITH MEALS - GARLIC Q48H - polyethylene glycol 3350 17 gram packet Take 17 g by mouth. I have interviewed and examined the patient. I have reviewed the medical record and/or the pre-anesthesia evaluation, pertinent labs, and test results. This contains updated information obtained within 48 hours of Surgery/Procedure. SIGNATURE: Guille Villalta II, DO PATIENT NAME: Eva Mercado DATE: February 06, 2024 TIME: 9:22 AM CSN: [id number] [facility] NURSING PROGon 02-06-2024 NURSING PROG HNO ID: [id number] Author: OXANA ANAYA RN Service: ? Author Type: Registered Nurse Type: Nursing Progress Note Filed: 02/06/2024 10:37 Note Text: POST OP LEARNING RESPONSE INSTRUCTION PROVIDED TO: Patient and Family member METHOD OF INSTRUCTION: Written instruction/Handouts Verbal instruction PATIENT / FAMILY RESPONSE: Verbalizes understanding of: INFECTION MANAGEMENT-Signs and symptoms of an infection and importance of contacting the physician PAIN MANAGEMENT-Effective strategies to manage pain in addition to pain medication PHYSICAL RESTRICTIONS-Physical restrictions and recommendations after discharge from the hospital POST-OPERATIVE INSTRUCTIONS-Correct actions to take to reduce postoperative complications WORSENING CONDITION-Signs and symptoms of a worsening condition that warrant a call to the physician FOLLOW-UP PLAN: Patient instructed to call with any further issues SUPPLEMENTAL MATERIAL: Post op discharge instructions Post sedation instructions given REFERRAL (RECOMMENDATION): None Electronically Signed By: Oxana Anaya RN In Department: AMBULATORY SURGERY [facility] OPERATIVE NOon 02-06-2024 OPERATIVE NO HNO ID: [id number] Author: VICTORINO REMY MD Service: Ophthalmology Author Type: Physician Type: Operative Report Filed: 02/06/2024 10:15 Note Text: OPERATIVE/PROCEDURE REPORT LOG ID: [id number] Surgery/Procedure Date: 02/06/2024 Incision/Procedure Start Time: 10:02 AM Incision Close/Procedure End Time: 10:08 AM Surgeon(s)/Proceduralist(s ) and Riding Teacher(s): Surgeons and Role: * Victorino Remy MD - Primary Riding Teacher: None. Any nurse listed as assisting or otherwise participating in this case has performed only the duties of a circulating nurse. Anesthesia: General anesthesia, due to seizure disorder. Pre-Op/Pre-Procedure Diagnosis: Pre-Op Diagnosis Codes: * Combined forms of age-related cataract of right eye [H25.811] Post-Op/Post-Procedure Diagnosis: Post-Op Diagnosis Codes: * Combined forms of age-related cataract of right eye [H25.811] Procedure(s): Procedure(s) (LRB): PHACOEMULSIFICATION CATARACT IMPLANT INTRAOCULAR LENS W/O ENDOSCOPIC CYCLOPHOTOCOAGULATION (Right) OPHTHALMIC BIOMETRY BY PARTIAL COHERENCE INTERFEROMETRY W/INTRAOCULAR LENS POWER CALCULATION (Right) Procedure Details: The patient was brought to the operating room and placed in the supine position on the operating table in the usual fashion. An IV was in place, as well as EKG, and BP monitoring. Nasal oxygen was administered. A Time Out was conducted confirming the correct patient, correct eye, correct surgery, correct implant and all allergies. The [employer] Lens verification Policy was meticulously followed as previously approved with both an initial lens verification by myself in the presence of the Nurse Coordinator and the field technician and a secondary full lens verification as part of the Time Out, with patient identity, laterality, and lens choice confirmed against the source document by myself, the Contracts Advisor Nurse, and the field technician. Topical lidocaine gel 2% was placed in a small ribbon in the lower cul-de-sac. The patient was prepped and draped in the usual sterile manner and a wire lid speculum was used to keep the eyelids open. A scleral groove was created at the superotemporal limbus and a keratome blade was used to tunnel forward from the groove approximately 1 mm into clear cornea before the anterior chamber was entered. The blade was used to sandoval the central anterior lens capsule. After the anterior chamber was filled with viscoelastic, the Utrata forceps were used to create a continuous curvilinear capsulorrhexis of approximately 5.5 mm round. Gentle hydrodissection was accomplished using preservative-free lidocaine on a 27-guage cannula. Using the Al phacoemulsification unit with the [place] curved tip, the anterior chamber was entered and the nucleus was removed while it was in the bag. The epinuclear ring was dissected into several segments, then removed using the phacoemulsification unit set to the desired aspiration flow rate and ultrasound parameters. Great care was taken not to violate the posterior capsule. The phaco CDE was 29.22. The irrigation/aspiration (I and A) device was then used to remove residual cortex. At the conclusion of the I and A, the posterior capsule was polished and then noted to be clean and intact. The lens capsule was filled with viscoelastic and the foldable 22.5 diopter lens was inserted atraumatically into the capsular bag (see implants below for lens information). The lens was observed to center nicely. The I and A device was again used to remove residual viscoelastic. Intracameral Cefuroxime 0.1 cc was injected. The wound was tested and found to be watertight. The speculum was removed. Drops of ketorolac (if not allergic), timolol and prednisolone were instilled. A shield was applied and the patient left the operating room in stable condition without complications. Estimated Blood Loss: 0 ml Specimens: None. I have reviewed the images and report from the Ophthalmic Biometry February 06, 2024 to determine the Intraocular lens Power Calculation for the IOL lens implant. I have interpreted and agree with the calculation of the IOL as listed below. Implants: Implant Name Type Inv. Item Serial No. Social Services Analyst Lot No. LRB No. Used Action Model No. CC60WF.225 [employer] - [id number] Intraocular Lens [id number].225 [employer] [id number] [employer] Right 1 Implanted [id number] Drains: None. Complications: None. I performed the entire procedure. Comanage with Dr. Whitfield; [facility] SIGNATURE: Victorino Remy MD PATIENT NAME: Eva Mercado DATE: February 06, 2024 TIME: 10:12 AM PAGER/CONTACT #: Normal [facility] ASCAN ONLY - DIAGNOSTIC OU ( BOTH EYES)on 01-29-2024 [facility] Radiology Study observation (narrative) [facility] HISTORY PHYSICALon HISTORY PHYSICAL HNO ID: [id number] Author: ZACARIAS RAY APRN.SUPERVISOR TELEPHONE INFORMATION Service: ? Author Type: Nurse Practitioner Type: H&P Filed: 01/30/2024 11:33 Note Text: [facility] HISTORY AND PHYSICAL EXAMINATION SERVICE DATE: 01/29/2024 SERVICE TIME: 12:17 PM PRIMARY CARE PHYSICIAN: No primary care provider on file. REASON FOR VISIT: Eva Mercado is a 73 year old female who is scheduled for at the request of Dr. Victorino Remy for consultation. My final recommendation will be communicated back to the requesting physician by way of shared medical record or letter. Assessment Psychogenic nonepileptic seizure Assessment:-Based on recommendation of Neurologist, when she has one of these episodes, if someone claps loudly the activity terminates immediately Frequent psychogenic nonepileptic seizures. Typically gets heavy breathing and upper body shaking but she is able to speak throughout them and has no postictal period. When someone claps they stop abruptly. Usually has at least one during physical examination and this was the case today. - PLAN - She is on lamotrigine 200mg BID - Continue fluoxetine 20 mg daily - Consider cognitive behavioral therapy and referral to psych but both the family and the patient decline this today as they feel she is at her baseline - Continue memantine 5 mg twice daily - Could consider seroquel for the hallucinations though this is deferred today per patient and family request Last Assessment AND Plan: She had some increased episodes during her appt today. Admits it is due some increased stress from missing her nap to come to appt and having extra person see her (for MW portion). 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 Her epileptic seizures are very well controlled on lamotrigine. Per family no epileptic events in over 2 years. PLAN - Continue lamotrigine 200 mg twice daily Hyperlipidemia Assessment: stable on medication Vitamin B12 deficiency Assessment: stable on B12 Type 2 diabetes mellitus (HCC) Assessment: stable on oral medication Hypothyroidism (acquired) Assessment: stable on mediation Anxiety Assessment: stable on medication Denies any suicidal ideation Mild cognitive impairment of uncertain or unknown etiology Assessment: symptoms stable on Namenda Lopez Activity Status Index: METS: Walk indoors, such as around the house (1.75 METs) Do light work around the house, such as dusting or washing dishes (2.70 METs) Take care of self; that is eating, dressing, bathing, using the toilet (2.75 METs) Walk a block or two on level ground (2.75 METs) DASI Score: 9.95 Patient denies any chest pain or undue shortness of breath with the above physical activity. Patient is partially dependent (walks with walker). Clinical Frailty Scale: 4. Apparently vulnerable STOP-Bang Score: Patient over 50 years old Denies snoring loudly Denies feeling tired, fatigued, or sleepy during the daytime Has not been observed to stop breathing or choking/gasping during sleep Denies having high blood pressure BMI less than or equal to 35 kg/m2 Does not have a large neck Non-male patient STOP-Bang Score: 1 [id number] Score: Age: >=75 Sex: female CHF history: No Hypertension history: No Stroke/TIA/thromboembolism history: No Vascular disease history: No Diabetes history: Yes [id number] Score: 4 ARISCAT Score: Age: 51-80 Preoperative SpO2: >=96% Respiratory infection in the last month: No Preoperative anemia: Yes Surgical incision: peripheral Duration of surgery: <2 hrs Emergency procedure: No ARISCAT Score: 14 ANESTHESIA FINDINGS: Intubation History: No prior intubation Significant Anesthesia Considerations: none Airway History: No prior intubation I - PHYSICAL EVALUATION AIRWAY Patient intubated: No. Tracheostomy tube not present Mallampati: II. TM distance: >3 FB. Neck ROM: full ROM without neurological symptoms. Mouth opening: adequate. Short neck: no. Thick neck: no Jackson present: no Lip Bite Test: II Microretrognathia/Micronag thia/Recessed Chin: No DENTAL Dental findings: teeth intact. II - ANESTHESIA PLAN Anesthetic plan additional comments: *PACC/TCI - anesthesia choice. Beta Jo Monitoring Plan Post Procedure Analgesic Plan Prepared for surgery: This patient is optimally prepared for surgery.- Patient to be done under [place] - Discussed with Dr. Pawan cruz to proceed CONSULTS: Patient does not require consults for optimization at this time. The Following Tests/Procedures Have Been Initiated: Labs not indicated per PACC protocol, EKG not indicated per PACC protocol Planned Anesthetic: Per anesthesia choice Subjective CHIEF COMPLAINT: Bilateral change of vision (more content not included)... Normal [facility] IOL BIOMETRY W/ IOL CALC OU (BOTH EYES)on 01-29-2024 [facility] Radiology Study observation (narrative) [facility] No Panel Informationon 01-14 [facility] Audiometry Audio indicated a mild sloping to severe sensorineural hearing loss 250-6000 Hz, rising to a moderately-severe hearing loss at 8000 Hz in the right ear. The left ear exhibited a mild sensorineural hearing loss 250-500 Hz, rising to normal hearing 7116-7301 Hz, sloping to a moderate to moderately-severe sensorineural hearing loss 3050-7214 Hz. Today's audio is consistent with previous results recorded 09-14-2021. [facility] - Hematology and Cell countson 01-09-2024 HbA1c (Bld) [Mass fraction] 8.5 % [facility] No Panel Informationon 01-08 [facility] CORNEAL TOPOGRAPHY ATLAS OU (BOTH EYES)on 01-03-2024 [facility] Radiology Study observation (narrative) [facility] OCT MACULA CIRRUS OU (BOTH E YES)on 01-03-2024 [facility] Radiology Study observation (narrative) [facility] MM screening mammo BI w/CADo n 11-22-2023 MM screening mammo BI w/CAD [facility] Main [place] [id number] Mammography Report Signed Patient: Eva Mercado MR#: [id number] : 1950 Acct:[id number] Age/Sex: 73 / F ADM Date: 11/22/23 Loc: CT Room: Type: [facility] Attending Dr: Referral Self Copies to: SELF,REFERRAL Mariann Lynn DO Ordering Provider: SELF,REFERRAL Date of Service: 11/22/23 MM/MM screening mammo BI w/CAD: SCREEN BILATERAL Screening Full Field digital mammogram with 3-D imaging. Full field digital CC and MLO imaging performed. CAD utilized. COMPARISON: 11/16/2022 HISTORY: Annual screening BREAST COMPOSITION: The breast is almost entirely fatty. BREAST CALCIFICATIONS: Benign calcifications present. VASCULAR CALCIFICATIONS: None ARCHITECTURAL DISTORTION: None BREAST NODULE: None AXILLARY LYMPH NODES: Normal POSTSURGICAL CHANGES: Biopsy marking clips unchanged. MM/MM screening mammo BI w/CAD IMPRESSION: No mammographic evidence of malignancy. Routine follow-up recommended in one year. RESULT CODE: 2 Benign Findings(s) DENSITY CODE: 1 (<25% glandular) FOLLOW UP: 1YR THE FALSE-NEGATIVE RATE OF MAMMOGRAPHY IS APPROXIMATELY 10%. IMAGING OF A PALPABLE ABNORMALITY MUST BE BASED ON CLINICAL GROUNDS. PATIENT WAS ENTERED INTO A REMINDER SYSTEM WITH A TARGET DUE DATE FOR THE NEXT MAMMOGRAM. Impression dictated by: Baudilio Lazo M.D.11/22/2023 10:07 AM Dictation Location: [facility] Transcribed By: [facility] 11/22/23 1007 Dictated By: Baudilio Lazo DO 11/22/23 1005 Signed By: 11/22/23 1007 Normal [facility] Activated partial thrombopla stin time (aPTT) in platelet poor plasma by coagulation aOrdered By: Billy Bang on 12-04-2022 aPTT Coag (PPP) [Time] 30.5 s 25.1-36.5 [facility] Alanine aminotransferase [En zymatic activity/volume] in Serum or PlasmaOrdered By: Billy Bang on 12-04-2022 ALT [Catalytic activity/Vol] 24 U/L Normal 7-52 [facility] Comment on above: Performed By: #### C BC, CMP, CUBLD, PTT, CK, PT, ESR, MG, CRP ####[place] [id number] [address] Albumin [Mass/volume] in Ser um or Plasma by Bromocresol green (BCG) dye binding methoOrdered By: Billy Bang on 12-04-2022 Albumin BCG dye [Mass/Vol] 4.5 g/dL 3.5-5.7 [facility] Alkaline phosphatase [Enzyma tic activity/volume] in Serum or PlasmaOrdered By: Billy Bang on 12-04-2022 ALP [Catalytic activity/Vol] 53 U/L Normal 34-104 [facility] Comment on above: Performed By: #### C BC, CMP, CUBLD, PTT, CK, PT, ESR, MG, CRP ####[address] Aspartate aminotransferase [ Enzymatic activity/volume] in Serum or PlasmaOrdered By: Billy Bang on 12-04-2022 AST [Catalytic activity/Vol] 20 U/L Normal 13-39 [facility] Comment on above: Performed By: #### C BC, CMP, CUBLD, PTT, CK, PT, ESR, MG, CRP ####[address] Automated basophil %Ordered By: Billy Bang on 12-04-2022 Basophils/100 WBC (Bld) 0.5 % Normal . [facility] Comment on above: Performed By: #### C BC, CMP, CUBLD, PTT, CK, PT, ESR, MG, CRP #### [address] Automated basophil countOrde red By: Billy Bang on 12-04-2022 Basophils (Bld) [#/Vol] 0.0 10*3/uL Normal 0.0-0.2 [facility] Comment on above: Performed By: #### C BC, CMP, CUBLD, PTT, CK, PT, ESR, MG, CRP #### [address] Automated blood monocyte cou ntOrdered By: Billy Bang on 12-04-2022 Monocytes (Bld) [#/Vol] 0.6 10*3/uL Normal 0.0-0.8 [facility] Comment on above: Performed By: #### C BC, CMP, CUBLD, PTT, CK, PT, ESR, MG, CRP #### [facility] [address] Automated eosinophil %Ordere d By: Billy Bang on 12-04-2022 Eosinophils/100 WBC (Bld) 3.6 % Normal . [facility] Comment on above: Performed By: #### C BC, CMP, CUBLD, PTT, CK, PT, ESR, MG, CRP #### [facility] [address] Automated eosinophil countOr dered By: Billy Bang on 12-04-2022 Eosinophils (Bld) [#/Vol] 0.2 10*3/uL Normal 0.0-0.45 [facility] Comment on above: Performed By: #### C BC, CMP, CUBLD, PTT, CK, PT, ESR, MG, CRP #### [address] Automated erythrocytes count in urine sediment (number/area)Ordered By: Billy Bang on 12-04-2022 RBC Auto (Urine sed) [#/Area] 0-1 [HPF] 0-4 [facility] Automated leukocytes count i n urine sediment (number/area)Ordered By: Billy Bang on 12-04-2022 WBC Auto (Urine sed) [#/Area] 10-19 [HPF] 0-4 [facility] Automated monocyte %Ordered By: Billy Bang on 12-04-2022 Monocytes/100 WBC (Bld) 10.0 % Normal . [facility] Comment on above: Performed By: #### C BC, CMP, CUBLD, PTT, CK, PT, ESR, MG, CRP #### [address] Automated neutrophil %Ordere d By: Billy Bang on 12-04-2022 Neutrophils/100 WBC (Bld) 50.7 % Normal . [facility] Comment on above: Performed By: #### C BC, CMP, CUBLD, PTT, CK, PT, ESR, MG, CRP #### [facility] [address] Automated urine color determ inationOrdered By: Billy Bang on 12-04-2022 Color (U) Yellow Normal Yellow [facility] Comment on above: Order Comment: Name Collection Type:: Clean-Voided Midstream Performed By: #### A DDONUAPLUS, CUU #### [facility] [address] Bilirubin Test strip Ql (U)O rdered By: Billy Bang on 12-04-2022 Bilirubin Ql (U) Negative Negative [facility] Bilirubin.total [Mass/volume ] in Serum or PlasmaOrdered By: Billy Bang on 12-04-2022 Bilirubin [Mass/Vol] 0.3 mg/dL Normal 0.3-1.0 [facility] Comment on above: Performed By: #### C BC, CMP, CUBLD, PTT, CK, PT, ESR, MG, CRP ####[address] Blood Cultureon 12-04-2022 Bacteria identified Cx Nom (Bld) NO GROWTH 5 DAYS PERFORMED BY: [place] [address] PATHOLOGIST ENTOMOLOGY PROFESSOR CODEY DAVIS M.D. Normal [facility] Comment on above: Performed By: #### C BC, CMP, CUBLD, PTT, CK, PT, ESR, MG, CRP ####[address] Bacteria identified Cx Nom (Bld) NO GROWTH 5 DAYS PERFORMED BY: [place] [address] PATHOLOGIST ENTOMOLOGY PROFESSOR CODEY DAVIS M.D. Normal [facility] Comment on above: Performed By: #### C BC, CMP, CUBLD, PTT, CK, PT, ESR, MG, CRP ####[address] C reactive protein [Mass/vol ume] in Serum or PlasmaOrdered By: Billy Bang on 12-04-2022 CRP [Mass/Vol] < 0.5 mg/dL 0.0-0.5 [facility] C-Reactive Proteinon 023 CRP [Mass/Vol] mg/L Normal 0.0-0.5 [facility] Comment on above: Result Comment: PERF ORMED BY: [place] [address] PATHOLOGIST ENTOMOLOGY PROFESSOR CODEY DAVIS M.D. Performed By: #### C BC, CMP, CUBLD, PTT, CK, PT, ESR, MG, CRP ####[address] abdomen pelvis wo conon 0 12-04-2022 CT abdomen pelvis wo con [facility] [place] [address] CT Scan Report Signed Patient: Eva Mercado MR#: [id number] : 1950 Acct:[id number] Age/Sex: 72 / F ADM Date: 12/04/22 Loc: ER Room: Type: [facility] ER Attending Dr: Copies to: Billy Bang DO Ordering Provider: Billy Bang DO Date of Service: 12/04/22 CT/CT abdomen pelvis wo con: attn spines. L cva area pain, plain film abnormal CT abdomen pelvis wo con 12/04/2022 5:00 PM SIGNS AND SYMPTOMS: Possible discitis, abnormal lumbar spine radiograph TECHNIQUE: Multidetector ct axial images of the abdomen and pelvis were obtained without IV contrast. Multiplanar reformats were performed and reviewed to further define anatomy and possible pathology. CT was performed with one or more of the following dose reduction techniques: Automated exposure control, adjustment of the mA and/or kV according to patient size, or use of iterative reconstruction technique. COMPARISON: None. FINDINGS: Lower Chest: Atherosclerotic changes are noted in the coronary arteries. Atherosclerotic changes are noted in the lower thoracic aorta. There is a 4 mm noncalcified nodule in the right middle lobe along the minor fissure. ABDOMEN: Liver: Within normal limits. Bile Ducts: Normal caliber. Gallbladder: No calcified gallstones. Normal caliber wall. Pancreas: Within normal limits. Spleen: Within normal limits. Adrenals: Within normal limits. Kidneys: Within normal limits. Pelvis: Reproductive Organs: Calcified uterine fibroids are present. Ureters: Within normal limits. Bladder: Within normal limits. Bowel: Uncomplicated colonic diverticula are present. There is no evidence of bowel obstruction. There is a normal appendix in the right lower quadrant. Mesenteric Lymph Nodes: No enlarged mesenteric lymph nodes. Peritoneum: No ascites or free air, no fluid collection. Vessels: Atherosclerotic changes are noted in the abdominal aorta and its branches. Retroperitoneum: Within normal limits. Abdominal Wall: Within normal limits. Bones: There is a compression deformity of the superior endplate of the L4 vertebral body with approximately 70% loss of vertebral body height. There is endplate sclerosis with Schmorl's information at the inferior endplate of L2. Vacuum disc phenomenon is noted in the L2-L3 intervertebral disc space. There is anterior osteophyte formation. Lesser degrees of degenerative changes are noted in the thoracolumbar spine. Degenerative changes are present in the bilateral hips and sacroiliac joints. CT/CT abdomen pelvis wo con IMPRESSION: There is a compression deformity of the superior endplate of the L4 vertebral body with approximately 70% loss of vertebral body height. There is endplate sclerosis with Schmorl's information at the inferior endplate of L2. Vacuum disc phenomenon is noted in the L2-L3 intervertebral disc space. No evidence of paraspinous fluid collection or edema to suggest discitis. If there is ongoing clinical concern, further evaluation with lumbar spine MRI with and without IV contrast may be helpful. No acute intra-abdominal pathology. Chronic appearing findings are noted, as above. Impression dictated by: Mitchell Cross M.D.12/04/2022 6:06 PM Dictation Location: [place] [address] Transcribed By: PATRICIA 12/04/221805 Dictated By: Mitchell Cross II, MD 12/04/22 466 Signed By: 12/04/221805 Normal [facility] Calcium [Mass/volume] in Ser um or PlasmaOrdered By: Billy Bang on 12-04-2022 Calcium [Mass/Vol] 10.3 mg/dL Normal 8.6-10.3 [facility] Comment on above: Performed By: #### C BC, CMP, CUBLD, PTT, CK, PT, ESR, MG, CRP ####[facility] Capillary blood glucose reva urement by glucometer (mass/volume)Ordered By: Billy Bang on 12-04-2022 Glucose [Mass/Vol] 198 mg/dL Normal [facility] Comment on above: Random Glucose Refer ence Range is dependent on time and content of last meal. Glucose of more than 200 mg/dL in a nonstressed, ambulatory subject supports the diagnosis of Diabetes Mellitus. Result Comment: [place] om Glucose Reference Range is dependent on time and content of last meal. Glucose of more than 200 mg/dL in a nonstressed, ambulatory subject supports the diagnosis of Diabetes Mellitus. Performed By: #### G TOO #### Point of Care testing , Carbon dioxide, total [Moles /volume] in Serum or PlasmaOrdered By: Billy Bang on 12-04-2022 CO2 [Moles/Vol] 27.5 mmol/L Normal 21.0-31.0 [facility] Comment on above: Performed By: #### C BC, CMP, CUBLD, PTT, CK, PT, ESR, MG, CRP ####[facility] Chloride [Moles/volume] in S kathy or PlasmaOrdered By: Billy Bang on 12-04-2022 Chloride [Moles/Vol] 100 mmol/L Normal 98-107 [facility] Comment on above: Performed By: #### C BC, CMP, CUBLD, PTT, CK, PT, ESR, MG, CRP ####[facility] Complete Blood Count Auto Di ffon 12-04-2022 Mean Corpuscular HGB Conc 34.0 g/dL Normal 32.0-35.0 [facility] Comment on above: Performed By: #### C BC, CMP, CUBLD, PTT, CK, PT, ESR, MG, CRP #### [facility] [address] [place] [address] [place] Monocytes/100 WBC (Bld) 15.32 % Normal 0.00-20.00 [facility] Comment on above: Performed By: #### C BC, CMP, CUBLD, PTT, CK, PT, ESR, MG, CRP #### [facility] [address] NRBC% 0.1 /100{WBC} Normal 0-0.5 [facility] Comment on above: Performed By: #### C BC, CMP, CUBLD, PTT, CK, PT, ESR, MG, CRP #### [address] Comprehensive Metabolic Pane laureano 12-04-2022 Albumin [Mass/Vol] 4.5 g/dL Normal 3.5-5.7 [facility] Comment on above: Performed By: #### C BC, CMP, CUBLD, PTT, CK, PT, ESR, MG, CRP ####[address] Anion gap [Moles/Vol] Not performed Normal 6.0-15.0 [facility] Comment on above: Performed By: #### C BC, CMP, CUBLD, PTT, CK, PT, ESR, MG, CRP ####[address] Creatinine Clr Calc Pharmacy 51.11 Normal [facility] Comment on above: Performed By: #### C BC, CMP, CUBLD, PTT, CK, PT, ESR, MG, CRP ####[address] GFR/1.73 sq M.predicted MDRD (S/P/Bld) [Vol rate/Area] mL/min/{1.73_m2} Normal [facility] Comment on above: Performed By: #### C BC, CMP, CUBLD, PTT, CK, PT, ESR, MG, CRP ####[address] Potassium Normal 3.5-5.1 [facility] Comment on above: Result Comment: Spec imen hemolyzed, redraw requested Performed By: #### C BC, CMP, CUBLD, PTT, CK, PT, ESR, MG, CRP ####[place] [address] [place] [id number] [facility] Creatine kinase [Enzymatic a ctivity/volume] in Serum or PlasmaOrdered By: Billy Bang on 12-04-2022 CK [Catalytic activity/Vol] 94 U/L Normal 30-223 [facility] Comment on above: Result Comment: PERF ORMED BY: [place] [address] PATHOLOGIST ENTOMOLOGY PROFESSOR CODEY DAVIS M.D. Performed By: #### C BC, CMP, CUBLD, PTT, CK, PT, ESR, MG, CRP ####[address] Creatinine [Mass/volume] in Serum or PlasmaOrdered By: Billy Bang on 12-04-2022 Creatinine [Mass/Vol] 0.98 mg/dL Normal 0.60-1.20 [facility] Comment on above: Performed By: #### C BC, CMP, CUBLD, PTT, CK, PT, ESR, MG, CRP ####[place] [address] [place] Dipstick and Microscopicon 0 12-04-2022 Appearance (U) Clear Normal Clear [facility] Comment on above: Order Comment: Name Collection Type:: Clean-Voided Midstream Performed By: #### A DDONUAPLUS, CUU #### [place] [address] [place] Bacteria,Urine None Seen Normal None Seen [facility] Comment on above: Order Comment: Name Collection Type:: Clean-Voided Midstream Performed By: #### A DDONUAPLUS, CUU #### [place] [address] [place] Bilirubin,Urine Negative Normal Negative [facility] Comment on above: Order Comment: Name Collection Type:: Clean-Voided Midstream Performed By: #### A DDONUAPLUS, CUU #### [address] Glucose Ql (U) Normal Normal Normal [facility] Comment on above: Order Comment: Name Collection Type:: Clean-Voided Midstream Performed By: #### A DDONUAPLUS, CUU #### [place] [address] [place] Hyaline Casts,Urine None Seen Normal 0-8 [facility] Comment on above: Order Comment: Name Collection Type:: Clean-Voided Midstream Result Comment: PERF ORMED BY: [place] [address] PATHOLOGIST ENTOMOLOGY PROFESSOR CODEY DAVIS M.D. Performed By: #### A DDONUAPLUS, CUU #### [address] Ketones Ql (U) Negative Normal Negative [facility] Comment on above: Order Comment: Name Collection Type:: Clean-Voided Midstream Performed By: #### A DDONUAPLUS, CUU #### [place] [address] [place] Leukocyte esterase Test strip Ql (U) 3+ High Negative [facility] Comment on above: Order Comment: Name Collection Type:: Clean-Voided Midstream Performed By: #### A DDONUAPLUS, CUU #### [place] [address] [place] Nitrite,Urine Negative Normal Negative [facility] Comment on above: Order Comment: Name Collection Type:: Clean-Voided Midstream Performed By: #### A DDONUAPLUS, CUU #### [place] [address] [place] Occult Blood,Urine Negative Normal Negative [facility] Comment on above: Order Comment: Name Collection Type:: Clean-Voided Midstream Result Comment: PERF ORMED BY: [place] [address] PATHOLOGIST ENTOMOLOGY PROFESSOR CODEY DAVIS M.D. Performed By: #### A DDONUAPLUS, CUU #### [place] [address] [place] Protein,Urine Negative Normal Negative [facility] Comment on above: Order Comment: Name Collection Type:: Clean-Voided Midstream Performed By: #### A DDONUAPLUS, CUU #### [place] [address] [place] RBC LM.HPF (Urine sed) [#/Area] 0 /[HPF] Normal 0-4 [facility] Comment on above: Order Comment: Name Collection Type:: Clean-Voided Midstream Performed By: #### A DDONUAPLUS, CUU #### [address] Specificy [place],Urine 1.014 Normal 1.001-1.030 [facility] Comment on above: Order Comment: Name Collection Type:: Clean-Voided Midstream Performed By: #### A DDONUAPLUS, CUU #### [address] Squamous Epithelial Cell,Urine 0-1 Normal 0-2 [facility] Comment on above: Order Comment: Name Collection Type:: Clean-Voided Midstream Performed By: #### A DDONUAPLUS, CUU #### [address] Urobilinogen,Urine Normal Normal Normal [facility] Comment on above: Order Comment: Name Collection Type:: Clean-Voided Midstream Performed By: #### A DDONUAPLUS, CUU #### [place] [address] [place] WBC,Urine 10-19 High 0-4 [facility] Comment on above: Order Comment: Name Collection Type:: Clean-Voided Midstream Performed By: #### A DDONUAPLUS, CUU #### [place] [address] [place] ECG 12 lead ECGon 12-04-2022 ECG 12 lead ECG [facility] [address] [place] [address] [place] [address] Electrocardiograph Report Signed Patient: Eva Mercado MR#: [id number] : 1950 Acct:[id number] Age/Sex: 72 / F ADM Date: 12/04/22 Loc: ER Room: Type: [facility] ER Attending Dr: Ordering Provider: Billy Bang DO Date of Service: 12/04/22 ECG/ECG 12 lead ECG: Back Pain/Injury Copies to: Test Reason : Blood Pressure : 131/076 mmHG Vent. Rate : 089 BPM Atrial Rate : 089 BPM P-R Int : 168 ms QRS Dur : 092 ms QT Int : 360 ms P-R-T Axes : -26 006 041 degrees QTc Int : 438 ms Normal sinus rhythm Confirmed by Billy BANG DO ([id number]) on 12/04/2022 7:32:54 PM Referred By: Electronically Signed By:Billy BANG DO Transcribed By: MUS Signed By Billy Bang DO 0 12/04/22 193 Normal [facility] Erythrocyte Sedimentation Ra lindsey 12-04-2022 ESR (Bld) [Velocity] 14 mm/h Normal 0-29 [facility] Comment on above: Result Comment: PERF ORMED BY: [place] [address] PATHOLOGIST ENTOMOLOGY PROFESSOR CODEY DAVIS M.D. Performed By: #### C BC, CMP, CUBLD, PTT, CK, PT, ESR, MG, CRP ####[facility] [id number] Erythrocyte distribution wid th [Ratio] by Automated countOrdered By: Billy Bang on 12-04-2022 Erythrocyte distribution width (RBC) [Ratio] 13.2 % Normal 11.9-15.3 [facility] Comment on above: Performed By: #### C BC, CMP, CUBLD, PTT, CK, PT, ESR, MG, CRP #### [facility] [address] Erythrocyte sedimentation ra te by Photometric methodOrdered By: Billy Bang on 12-04-2022 ESR Photometric method (Bld) [Velocity] 14 mm/hr 0-29 [facility] Erythrocytes [#/volume] in B lood by Automated countOrdered By: Billy Bang on 12-04-2022 RBC (Bld) [#/Vol] 4.19 10*6/uL Normal 3.60-5.00 [facility] Comment on above: Performed By: #### C BC, CMP, CUBLD, PTT, CK, PT, ESR, MG, CRP #### [facility] [address] Glucose Poct Glucometerson 0 12-04-2022 Commemt1 Glu2: Cleaned Meter Normal [facility] Comment on above: Result Comment: PERF ORMED BY: [facility] [address] [place] [address] PATHOLOGIST ENTOMOLOGY PROFESSOR CODEY DAVIS M.D. Performed By: #### G TOO #### Point of Care testing , Glucose [Mass/volume] in Ser um or PlasmaOrdered By: Billy Bang on 12-04-2022 Glucose [Mass/Vol] 190 mg/dL High 70-100 [facility] Comment on above: ADA recommended refe rence rangeRandom Glucose Reference Range is dependent on time and content of last meal. Glucose of more than 200 mg/dL in a nonstressed, ambulatory subject supports the diagnosis of Diabetes Mellitus. Result Comment: [place] om Glucose Reference Range is dependent on time and content of last meal. Glucose of more than 200 mg/dL in a nonstressed, ambulatory subject supports the diagnosis of Diabetes Mellitus. ADA recommended reference range Performed By: #### C BC, CMP, CUBLD, PTT, CK, PT, ESR, MG, CRP ####[facility] [id number] Hematocrit [Volume Fraction] of Blood by Automated countOrdered By: Billy Bang on 12-04-2022 Hematocrit (Bld) [Volume fraction] 39.7 % Normal 34.0-46.4 [facility] Comment on above: Performed By: #### C BC, CMP, CUBLD, PTT, CK, PT, ESR, MG, CRP #### [facility] [address] [place] [id number] [facility] Hemoglobin [Mass/volume] in BloodOrdered By: Billy Bang on 12-04-2022 Hemoglobin (Bld) [Mass/Vol] 13.5 g/dL Normal 11.8-15.4 [facility] Comment on above: Performed By: #### C BC, CMP, CUBLD, PTT, CK, PT, ESR, MG, CRP #### [facility] [address] Ketones Auto test strip (U) [Mass/Vol]Ordered By: Billy Bang on 12-04-2022 Ketones (U) [Mass/Vol] Negative Negative [facility] - UrinalysisOrder ed By: Billy Bang on 12-04-2022 Hyaline casts LM Ql (Urine sed) None seen [LPF] 0-8 [facility] Lactate [Moles/volume] in Se rum or PlasmaOrdered By: Billy Bang on 12-04-2022 Lactate [Moles/Vol] 1.9 mmol/L Normal 0.5-2.2 [facility] Comment on above: Result Comment: PERF ORMED BY: [place] [address] PATHOLOGIST ENTOMOLOGY PROFESSOR CODEY DAVIS M.D. Performed By: #### L ACTIC #### [address] Leukocytes [#/volume] correc venu for nucleated erythrocytes in Blood by Automated counOrdered By: Billy Bang on 12-04-2022 WBC corrected for nucl RBC Auto (Bld) [#/Vol] 6.5 10*3/uL 3.8-11.6 [facility] Leukocytes [#/volume] in Blo od by Automated countOrdered By: Billy Bang on 12-04-2022 WBC (Bld) [#/Vol] 6.5 10*3/uL Normal 3.8-11.6 [facility] Comment on above: Performed By: #### C BC, CMP, CUBLD, PTT, CK, PT, ESR, MG, CRP #### [place] [address] [place] Lymphocytes [#/volume] in Bl ood by Automated countOrdered By: Billy Bang on 12-04-2022 Lymphocytes (Bld) [#/Vol] 2.3 10*3/uL Normal 1.00-4.8 [facility] Comment on above: Performed By: #### C BC, CMP, CUBLD, PTT, CK, PT, ESR, MG, CRP #### [facility] [address] Lymphocytes/100 leukocytes i n Blood by Automated countOrdered By: Billy Bang on 12-04-2022 Lymphocytes/100 WBC (Bld) 35.2 % Normal . [facility] Comment on above: Performed By: #### C BC, CMP, CUBLD, PTT, CK, PT, ESR, MG, CRP #### [facility] [address] MCH [Entitic mass] by Automa venu countOrdered By: Billy Bang on 12-04-2022 MCH (RBC) [Entitic mass] 32.3 pg Normal 24.7-34.3 [facility] Comment on above: Performed By: #### C BC, CMP, CUBLD, PTT, CK, PT, ESR, MG, CRP #### [facility] [address] MCHC Auto (RBC) [Mass/Vol]Or dered By: Billy Bang on 12-04-2022 MCHC (RBC) [Mass/Vol] 34.0 g/dL 32.0-35.0 [facility] MCV [Entitic volume] by Auto mated countOrdered By: Billy Bang on 12-04-2022 MCV (RBC) [Entitic vol] 94.8 fL Normal 80-100 [facility] Comment on above: Performed By: #### C BC, CMP, CUBLD, PTT, CK, PT, ESR, MG, CRP #### [facility] [address] Magnesium [Mass/volume] in S kathy or PlasmaOrdered By: Billy Bang on 12-04-2022 Magnesium [Mass/Vol] 1.9 mg/dL Normal 1.9-2.7 [facility] Comment on above: Performed By: #### C BC, CMP, CUBLD, PTT, CK, PT, ESR, MG, CRP ####[id number] Monocyte distribution width [Entitic volume] in Blood by AutomatedOrdered By: Billy Bang on 12-04-2022 Monocyte distribution width Auto (Bld) [Entitic vol] 15.32 % 0.00-20.00 [facility] Neutrophils [#/volume] in Bl ood by Automated countOrdered By: Billy Bang on 12-04-2022 Neutrophils (Bld) [#/Vol] 3.3 10*3/uL Normal 1.8-7.7 [facility] Comment on above: Performed By: #### C BC, CMP, CUBLD, PTT, CK, PT, ESR, MG, CRP #### [facility] [address] Nitrite Test strip Ql (U)Ord ered By: Billy Bang on 12-04-2022 Nitrite Ql (U) Negative Negative [facility] No Panel InformationOrdered By: Billy Bang on 12-04-2022 Estimated GFR (CKD-EPI) > 60.0 mL/Min [facility] Creatinine Clearance (Chem 51.11 [facility] Bedside Glucose Comment Glu2: cleaned meter [facility] Nucleated erythrocytes [Pres ence] in Blood by Automated countOrdered By: Billy Bang on 12-04-2022 Nucleated RBC Auto Ql (Bld) 0.1 /100{WBC} 0-0.5 [facility] Partial Thromboplastin Timeo n 12-04-2022 aPTT Coag (Bld) [Time] 30.5 s Normal 25.1-36.5 [facility] Comment on above: Result Comment: PERF ORMED BY: [facility] [address] [place] [address] PATHOLOGIST ENTOMOLOGY PROFESSOR CODEY DAVIS M.D. Performed By: #### C BC, CMP, CUBLD, PTT, CK, PT, ESR, MG, CRP ####[id number] Platelet mean volume [Entiti c volume] in Blood by Automated countOrdered By: Billy Bang on 12-04-2022 Platelet mean volume (Bld) [Entitic vol] 7.8 fL Normal 6.3-10.7 [facility] Comment on above: Performed By: #### C BC, CMP, CUBLD, PTT, CK, PT, ESR, MG, CRP #### [facility] [address] Platelet poor plasma interna tional normalized ratio (INR) by coagulation assay (relatOrdered By: Billy Bang on 12-04-2022 INR Coag (PPP) [Relative time] 0.9 {INR} Normal [facility] Comment on above: INR Therapeutic Rang e A) Pre- and Peroperative OAT started two weeks before surgery. NOT HIP SURGERY: 1.5 - 2.5 HIP SURGERY: 2 - 3B) Primary and secondary prevention of venous THROMBOSIS: 2 - 3C) Active venous thrombosis, pulmonary embolismand prevention of recurrent venous thrombosis: 2 - 3D) Prevention of arterial thromboembolismincluding patients with mechanical heart valves: 3 - 4.5 Result Comment: INR Therapeutic Range A) Pre- and Peroperative OAT started two weeks before surgery. NOT HIP SURGERY: 1.5 - 2.5 HIP SURGERY: 2 - 3 B) Primary and secondary prevention of venous THROMBOSIS: 2 - 3 C) Active venous thrombosis, pulmonary embolism and prevention of recurrent venous thrombosis: 2 - 3 D) Prevention of arterial thromboembolism including patients with mechanical heart valves: 3 - 4.5 Performed By: #### C BC, CMP, CUBLD, PTT, CK, PT, ESR, MG, CRP ####[id number] [place] [id number] [place] Platelets [#/volume] in Bloo d by Automated countOrdered By: Billy Bang on 12-04-2022 Platelets (Bld) [#/Vol] 235 10*3/uL Normal 150-450 [facility] Comment on above: Performed By: #### C BC, CMP, CUBLD, PTT, CK, PT, ESR, MG, CRP #### [facility] [address] [place] [id number] [place] Potassium [Moles/volume] in Serum or PlasmaOrdered By: Billy Bang on 12-04-2022 Potassium [Moles/Vol] 4.2 mmol/L Normal 3.5-5.1 [facility] Comment on above: Order Comment: 1ST S AMPLE HEMOLYZED. RN USHA PONCE NOTIFIED. RN WILL CALL IF PHLEB IS NEEDED. DC Result Comment: PERF ORMED BY: [facility] [address] [place] [address] PATHOLOGIST ENTOMOLOGY PROFESSOR CODEY DAVIS M.D. Performed By: #### R RITA Weston #### [facility] [address] Protein Auto test strip (U) [Mass/Vol]Ordered By: Billy Bang on 12-04-2022 Protein (U) [Mass/Vol] Negative Negative [facility] Protein [Mass/volume] in Ser um or PlasmaOrdered By: Billy Bang on 12-04-2022 Protein [Mass/Vol] 7.9 g/dL Normal 6.4-8.9 [facility] Comment on above: Performed By: #### C BC, CMP, CUBLD, PTT, CK, PT, ESR, MG, CRP ####[place] [id number] [address] Prothrombin Time INROrdered By: Billy Bang on 12-04-2022 PT Coag (PPP) [Time] 10.1 s Normal 9.0-12.9 [facility] Comment on above: Performed By: #### C BC, CMP, CUBLD, PTT, CK, PT, ESR, MG, CRP ####[place] [id number] [address] Serum globulin measurement b y calculation (mass/volume)Ordered By: Billy Bang on 12-04-2022 Globulin (S) [Mass/Vol] 3.4 g/dL Normal [facility] Comment on above: Performed By: #### C BC, CMP, CUBLD, PTT, CK, PT, ESR, MG, CRP ####[place] [id number] [address] Serum or plasma albumin/glob ulin mass ratioOrdered By: Billy Bang on 12-04-2022 Albumin/Globulin [Mass ratio] 1.3 {ratio} Normal [facility] Comment on above: Performed By: #### C BC, CMP, CUBLD, PTT, CK, PT, ESR, MG, CRP ####[place] [address] [address] Serum or plasma anion gap de terminationOrdered By: Billy Bang on 12-04-2022 Anion gap [Moles/Vol] TNP [facility] Comment on above: Test not performed Sodium [Moles/volume] in Ser um or PlasmaOrdered By: Billy Bang on 12-04-2022 Sodium [Moles/Vol] 136 mmol/L Normal 136-145 [facility] Comment on above: Performed By: #### C BC, CMP, CUBLD, PTT, CK, PT, ESR, MG, CRP ####[place] [id number] [address] Specific gravity Auto test s trip (U) [Rel density]Ordered By: Billy Bang on 12-04-2022 Specific gravity (U) [Rel density] 1.014 1.001-1.030 [facility] Squamous epithelial cells de tection in urine sediment by light microscopyOrdered By: Billy Bang on 12-04-2022 Epithelial cells.squamous LM Ql (Urine sed) 0-1 [HPF] 0-2 [facility] Urea nitrogen [Mass/volume] in Serum or PlasmaOrdered By: Billy Bang on 12-04-2022 Urea nitrogen [Mass/Vol] 21 mg/dL Normal 7-25 [facility] Comment on above: Performed By: #### C BC, CMP, CUBLD, PTT, CK, PT, ESR, MG, CRP ####[place] [id number] [place] [id number] [facility] Urine Cultureon 12-04-2022 Bacteria identified Cx Nom (U) 20,000 colonies/ml mixed bacterial skin contaminants 2 Days PERFORMED BY: [facility] [address] [place] [address] PATHOLOGIST ENTOMOLOGY PROFESSOR CODEY DAVIS M.D. Normal [facility] Comment on above: Performed By: #### A MICKY CABRERA #### [facility] [address] [place], [place] [id number] [facility] Urine bacteria detection by automated methodOrdered By: Billy Bang on 12-04-2022 Bacteria Auto Ql (U) None seen None Seen [facility] Urine clarity by refractomet ry automatedOrdered By: Billy Bang on 12-04-2022 Clarity Refractometry automated (U) Clear Clear [facility] Urine glucose measurement by automated test strip (mass/volume)Ordered By: Billy Bang on 12-04-2022 Glucose Auto test strip (U) [Mass/Vol] Normal mg/dL Normal [facility] Urine hemoglobin detection b y automated test stripOrdered By: Billy Bang on 12-04-2022 Hemoglobin Auto test strip Ql (U) Negative Negative [facility] Urine leukocyte esterase det ection by automated test stripOrdered By: Billy Bang on 12-04-2022 Leukocyte esterase Auto test strip Ql (U) 3+ Negative [facility] Urine pH measurement by auto mated test stripOrdered By: Billy Bang on 12-04-2022 pH (U) 6.0 [pH] Normal 5.0-9.0 [facility] Comment on above: Order Comment: Name Collection Type:: Clean-Voided Midstream Performed By: #### A MICKY CABRERA #### [facility] [address] [place] [address] Urobilinogen Auto test strip (U) [Mass/Vol]Ordered By: Billy Bang on 12-04-2022 Urobilinogen (U) [Mass/Vol] Normal mg/dL Normal [facility] XR chest 2V*on 12-04-2022 XR chest 2V* [facility] [place] [address] XRay Report Signed Patient: Eva Mercado MR#: [id number] : [id number] Acct:[id number] Age/Sex: 72 / F ADM Date: 12/04/22 Loc: ER Room: Type: PRE ER Attending Dr: Copies to: Billy Bang DO Ordering Provider: Billy Bang DO Date of Service: 12/04/22 XR/XR chest 2V*: Back Pain/Injury XR chest 2V* 12/04/2022 4:16 PM SIGNS AND SYMPTOMS: Possible discitis/osteomyelitis, back pain PROTOCOL: Frontal and lateral radiographs of the chest COMPARISON: 05/25/2020 FINDINGS: The trachea is midline. The heart and mediastinal structures are within normal limits. The lung parenchyma is clear. The bony thorax is intact. Degenerative changes are noted in the shoulders and thoracic spine. XR/XR chest 2V* IMPRESSION: No acute cardiopulmonary pathology. Impression dictated by: Mitchell Cross M.D.12/04/2022 5:51 PM Dictation Location: [place] [address] Transcribed By: PATRICIA 12/04/221750 Dictated By: Mitchell Cross II, MD 12/04/221746 Signed By: 12/04/221750 Normal [facility] Alanine aminotransferase [En zymatic activity/volume] in Serum or PlasmaOrdered By: Mariann Lynn on 07-11-2022 ALT [Catalytic activity/Vol] 15 U/L 7-52 [facility] Albumin [Mass/volume] in Ser um or Plasma by Bromocresol green (BCG) dye binding methoOrdered By: Mariann Lynn on 07-11-2022 Albumin BCG dye [Mass/Vol] 4.6 g/dL 3.5-5.7 [facility] Alkaline phosphatase [Enzyma tic activity/volume] in Serum or PlasmaOrdered By: Mariann Lynn on 07-11-2022 ALP [Catalytic activity/Vol] 50 U/L 34-104 [facility] Aspartate aminotransferase [ Enzymatic activity/volume] in Serum or PlasmaOrdered By: Mariann Lynn on 07-11-2022 AST [Catalytic activity/Vol] 14 U/L 13-39 [facility] Basophils Auto (Bld) [#/Vol] Ordered By: Mariann Lynn on 07-11-2022 Basophils (Bld) [#/Vol] 0.0 10*3/uL 0.0-0.2 [facility] Basophils/100 WBC Auto (Bld) Ordered By: Mariann Lynn on 07-11-2022 Basophils/100 WBC (Bld) 0.4 % . [facility] Bilirubin.total [Mass/volume ] in Serum or PlasmaOrdered By: Mariann Lynn on 07-11-2022 Bilirubin [Mass/Vol] 0.3 mg/dL 0.3-1.0 [facility] Calcium [Mass/volume] in Ser um or PlasmaOrdered By: Mariann Lynn on 07-11-2022 Calcium [Mass/Vol] 10.8 mg/dL 8.6-10.3 [facility] Carbon dioxide, total [Moles /volume] in Serum or PlasmaOrdered By: Mariann Lynn on 07-11-2022 CO2 [Moles/Vol] 28.0 mmol/L 21.0-31.0 [facility] Chloride [Moles/volume] in S kathy or PlasmaOrdered By: Mariann Lynn on 07-11-2022 Chloride [Moles/Vol] 102 mmol/L 98-107 [facility] Cholesterol [Mass/volume] in Serum or PlasmaOrdered By: Mariann Lynn on 07-11-2022 Cholesterol [Mass/Vol] 159 mg/dL 140-200 [facility] Comment on above: Chol less than 200 m g/dl low riskChol 201-239 mg/dl borderline riskChol 240 mg/dl and greater high risk Cholesterol in LDL Calc [Mas s/Vol]Ordered By: Mariann Lynn on 07-11-2022 Cholesterol in LDL [Mass/Vol] 73 mg/dL 0-100 [facility] Comment on above: LDL ATP III CLASSIFI CATIONLDL less than 100 mg/dL OptimalLDL 100-129 mg/dL Near or above optimalLDL 130-159 mg/dL Borderline highLDL 160-189 mg/dL HighLDL greater than 189 mg/dL Very high Cholesterol in VLDL Calc [Ma ss/Vol]Ordered By: Mariann Lynn on 07-11-2022 Cholesterol in VLDL [Mass/Vol] 31 mg/dL [facility] Creatinine [Mass/volume] in Serum or PlasmaOrdered By: Mariann Lynn on 07-11-2022 Creatinine [Mass/Vol] 0.87 mg/dL 0.60-1.20 [facility] Creatinine [Mass/volume] in UrineOrdered By: Mariann Lynn on 07-11-2022 Creatinine (U) [Mass/Vol] 99.6 mg/dL [facility] Comment on above: No reference range e stablished Eosinophils Auto (Bld) [#/Vo l]Ordered By: Mariann Lynn on 07-11-2022 Eosinophils (Bld) [#/Vol] 0.2 10*3/uL 0.0-0.45 [facility] Eosinophils/100 WBC Auto (Bl d)Ordered By: Mariann Lynn on 07-11-2022 Eosinophils/100 WBC (Bld) 4.0 % . [facility] Erythrocyte distribution wid th Auto (RBC) [Ratio]Ordered By: Mariann Lynn on 07-11-2022 Erythrocyte distribution width (RBC) [Ratio] 13.5 % 11.9-15.3 [facility] Globulin Calc (S) [Mass/Vol] Ordered By: Mariann Lynn on 07-11-2022 Globulin (S) [Mass/Vol] 2.7 g/dL [facility] Glucose [Mass/volume] in Ser um or PlasmaOrdered By: Mariann Lynn on 07-11-2022 Glucose [Mass/Vol] 72 mg/dL 74-109 [facility] Comment on above: ADA recommended refe rence rangeRandom Glucose Reference Range is dependent on time and content of last meal. Glucose of more than 200 mg/dL in a nonstressed, ambulatory subject supports the diagnosis of Diabetes Mellitus. Hematocrit Auto (Bld) [Volum e fraction]Ordered By: Mariann Lynn on 07-11-2022 Hematocrit (Bld) [Volume fraction] 39.2 % 34.0-46.4 [facility] Hemoglobin [Mass/volume] in BloodOrdered By: Mariann Lynn on 07-11-2022 Hemoglobin (Bld) [Mass/Vol] 13.0 g/dL 11.8-15.4 [facility] Laboratory - Chemistry and C hemistry - challengeOrdered By: Mariann Lynn on 07-11-2022 GFR/1.73 sq M.predicted MDRD (S/P/Bld) [Vol rate/Area] mL/min/{1.73_m2} [facility] Leukocytes [#/volume] correc venu for nucleated erythrocytes in Blood by Automated counOrdered By: Mariann Lynn on 07-11-2022 WBC corrected for nucl RBC Auto (Bld) [#/Vol] 5.8 10*3/uL 3.8-11.6 [facility] Lymphocytes Auto (Bld) [#/Vo l]Ordered By: Mariann Lynn on 07-11-2022 Lymphocytes (Bld) [#/Vol] 1.9 10*3/uL 1.00-4.8 [facility] Lymphocytes/100 WBC Auto (Bl d)Ordered By: Mariann Lynn on 07-11-2022 Lymphocytes/100 WBC (Bld) 32.2 % . [facility] MCH Auto (RBC) [Entitic mass ]Ordered By: Mariann Lynn on 07-11-2022 MCH (RBC) [Entitic mass] 32.0 pg 24.7-34.3 [facility] MCHC Auto (RBC) [Mass/Vol]Or dered By: Mariann Lynn on 07-11-2022 MCHC (RBC) [Mass/Vol] 33.2 g/dL 32.0-35.0 [facility] MCV Auto (RBC) [Entitic vol] Ordered By: Mariann Lynn on 07-11-2022 MCV (RBC) [Entitic vol] 96.3 fL 80-100 [facility] Microalbumin [Mass/volume] i n UrineOrdered By: Mariann Lynn on 07-11-2022 Albumin DL <= 20 mg/L (U) [Mass/Vol] 1.4 mg/dL 0.0-1.8 [facility] Monocytes Auto (Bld) [#/Vol] Ordered By: Mariann Lynn on 07-11-2022 Monocytes (Bld) [#/Vol] 0.6 10*3/uL 0.0-0.8 [facility] Monocytes/100 WBC Auto (Bld) Ordered By: Mariann Lynn on 07-11-2022 Monocytes/100 WBC (Bld) 9.6 % . [facility] Neutrophils Auto (Bld) [#/Vo l]Ordered By: Mariann Lynn on 07-11-2022 Neutrophils (Bld) [#/Vol] 3.1 10*3/uL 1.8-7.7 [facility] Neutrophils/100 WBC Auto (Bl d)Ordered By: Mariann Lynn on 07-11-2022 Neutrophils/100 WBC (Bld) 53.8 % . [facility] No Panel InformationOrdered By: Mariann Lynn on 07-11-2022 Pharmacy Creatinine Clearance (Chem N/A [facility] Nucleated erythrocytes [Pres ence] in Blood by Automated countOrdered By: Mariann Lynn on 07-11-2022 Nucleated RBC Auto Ql (Bld) 0.1 /100{WBC} 0-0.5 [facility] Platelet mean volume Auto (B ld) [Entitic vol]Ordered By: Mariann Lynn on 07-11-2022 Platelet mean volume (Bld) [Entitic vol] 8.1 fL 6.3-10.7 [facility] Platelets Auto (Bld) [#/Vol] Ordered By: Mariann Lynn on 07-11-2022 Platelets (Bld) [#/Vol] 236 10*3/uL 150-450 [facility] Potassium [Moles/volume] in Serum or PlasmaOrdered By: Mariann Lynn on 07-11-2022 Potassium [Moles/Vol] 4.5 mmol/L 3.5-5.1 [facility] Protein [Mass/volume] in Ser um or PlasmaOrdered By: Mariann Lynn on 07-11-2022 Protein [Mass/Vol] 7.3 g/dL 6.4-8.9 [facility] RBC Auto (Bld) [#/Vol]Ordere d By: Mariann Lynn on 07-11-2022 RBC (Bld) [#/Vol] 4.07 10*6/uL 3.60-5.00 [facility] Serum or plasma albumin/glob ulin mass ratioOrdered By: Mariann Lynn on 07-11-2022 Albumin/Globulin [Mass ratio] 1.7 {ratio} [facility] Serum or plasma anion gap de terminationOrdered By: Mariann Lynn on 07-11-2022 Anion gap [Moles/Vol] 13.5 mmol/L 6.0-15.0 [facility] Serum or plasma high density lipoprotein (HDL) cholesterol measurementOrdered By: Mariann Lynn on 07-11-2022 Cholesterol in HDL [Mass/Vol] 55 mg/dL 35-85 [facility] Comment on above: HDL CHOL ATP-III CLA SSIFICATION Cardiovascular RiskHDL > or equal to 60 mg/dL LOWHDL < 40 mg/dL HIGH Serum or plasma total choles terol/high density lipoprotein (HDL) cholesterol mass ratOrdered By: Mariann Lynn on 07-11-2022 Cholesterol.total/Chol esterol in HDL [Mass ratio] 2.9 {ratio} <5.0 [facility] Sodium [Moles/volume] in Ser um or PlasmaOrdered By: Mariann Lynn on 07-11-2022 Sodium [Moles/Vol] 139 mmol/L 136-145 [facility] Thyrotropin [Units/volume] i n Serum or PlasmaOrdered By: Mariann Lynn on 07-11-2022 TSH Qn 0.85 m[IU]/L 0.45-5.33 [facility] Thyroxine (T4) free [Mass/vo lume] in Serum or PlasmaOrdered By: Mariann Sky on 07-11-2022 Free T4 [Mass/Vol] 0.90 ng/dL 0.61-1.12 [facility] Triglyceride [Mass/volume] i n Serum or PlasmaOrdered By: Mariann Lynn on 07-11-2022 Triglyceride [Mass/Vol] 156 mg/dL 0-149 [facility] Comment on above: TRIG ATP III CLASSIF ICATIONTRIG less than 150 mg/dL NormalTRIG 150-199 mg/dL Borderline highTRIG 200-500 mg/dL High TRIG greater than 500 mg/dL Very highStandard traceable to the Center for Disease Conrtrol and Prevention (CDC) test method. Urate [Mass/volume] in Serum or PlasmaOrdered By: Mariann Lynn on 07-11-2022 Urate [Mass/Vol] 4.8 mg/dL 2.3-6.6 [facility] Urea nitrogen [Mass/volume] in Serum or PlasmaOrdered By: Mariann Lynn on 07-11-2022 Urea nitrogen [Mass/Vol] 21 mg/dL 7-25 [facility] Urine microalbumin/creatinin e mass ratioOrdered By: Mariann Lynn on 07-11-2022 Albumin/Creatinine DL <= 20 mg/L (U) [Mass ratio] 14.0 mg/g 0.0-30.0 [facility] Comment on above: 30-300 mg/g indicate s an increased risk for diabetic nephropathy. Greater than 300 mg/g is consistent with clinical nephropathy. (Am. J. Kidney Disease 1995, 25:107) WBC Auto (Bld) [#/Vol]Ordere d By: Mariann Lynn on 07-11-2022 WBC (Bld) [#/Vol] 5.8 10*3/uL 3.8-11.6 [facility] XR CHEST 1 Von 08-03-2020 XR CHEST 1 V EXAM: XR CHEST 1 V HISTORY: PICC line insertion. COMPARISON: None. TECHNIQUE: Single AP view of the chest was performed. FINDINGS: No focal consolidation, pneumothorax or pleural effusion. Right-sided PICC line tip terminates overlying the superior vena cava. There may be a tiny calcified granuloma at the right upper lobe. The cardiomediastinal silhouette is unremarkable. Degenerative changes of the shoulders and spine are noted. IMPRESSION: No focal consolidation, pneumothorax or pleural effusion. Right-sided PICC line tip terminates overlying the superior vena cava. Electronically authenticated by: GIGI CHATTERJEE Date: 2020-08-03 16:52 Normal [facility] Vital Signs Date Time Vital Sign Value Performing Clinician Facility 01-29-2024 11:54-0400 Body height 165.1 cm Pacc 1 Work Phone: [facility] 01-29-2024 11:54-0400 Body mass index (BMI) [Ratio] 28.62 kg/m2 Pacc 1 Work Phone: [facility] 01-29-2024 11:54-0400 Body temperature 98.49 [degF] Pacc 1 Work Phone: [facility] 01-29-2024 11:54-0400 Body weight 78 kg Pacc 1 Work Phone: [facility] 01-29-2024 11:54-0400 Diastolic blood pressure 72 mm[Hg] Pacc 1 Work Phone: [facility] 01-29-2024 11:54-0400 Heart rate 75 /min Pacc 1 Work Phone: [facility] 01-29-2024 11:54-0400 Respiratory rate 16 /min Pacc 1 Work Phone: [facility] 01-29-2024 11:54-0400 SaO2% (BldA) [Mass fraction] 96 % Pacc 1 Work Phone: [facility] 01-29-2024 11:54-0400 Systolic blood pressure 157 mm[Hg] Pacc 1 Work Phone: [facility] 01-09-2024 10:46-0400 Body mass index (BMI) [Ratio] 27.22 kg/m2 Mariann Orellana-[place]us DO Work Phone: [facility] 01-09-2024 10:46-0400 Body weight 78.83 kg Mariann Orellana-[place] DO Work Phone: [facility] 01-09-2024 10:46-0400 Diastolic blood pressure 62 mm[Hg] Mariann Orellana-[place] DO Work Phone: [facility] 01-09-2024 10:46-0400 Heart rate 83 /min Mariann Orellana-[place] DO Work Phone: [facility] 01-09-2024 10:46-0400 SaO2% (BldA) [Mass fraction] 99 % Mariann Orellana-[place] DO Work Phone: [facility] 01-09-2024 10:46-0400 Systolic blood pressure 116 mm[Hg] Mariann Orellana-[place] DO Work Phone: [facility] 12-04-2022 19:30-0400 Diastolic blood pressure 74 mm[Hg] DO Mariann Orellana-[place] Work Phone: [facility] 12-04-2022 19:30-0400 Heart rate 88 /min DO Mariann Orellana-[place] Work Phone: [facility] 12-04-2022 19:30-0400 Respiratory rate 16 /min DO Mariann Orellana-[place] Work Phone: [facility] 12-04-2022 19:30-0400 SaO2% (BldA) [Mass fraction] 99 % DO Mariann Orellana-[place] Work Phone: [facility] 12-04-2022 19:30-0400 Systolic blood pressure 155 mm[Hg] DO Mariann Orellana-[place] Work Phone: [facility] 12-04-2022 15:58-0400 Body height 165.1 cm DO Mariann Orellana-[place] Work Phone: [facility] 12-04-2022 15:58-0400 Body temperature 97.5 [degF] DO Mariann Orellana-[place] Work Phone: [facility] 12-04-2022 15:58-0400 Body weight 75.2 kg DO Mariann Orellana-[place] Work Phone: [facility] Encounters Encounter Date Encounter Type Care Provider Facility Start: 07-09-2024 End: 07-09-2024 Telephone encounter Jigar RAMIREZ Start: 07-08-2024 End: 07-08-2024 Telephone encounter Mariann Chito RojoJose Daniel DO Work Phone: [facility] Comment on above: Ashley lab order Start: 07-02-2024 End: 07-02-2024 Telephone encounter Estela Delgado AUD Work Phone: [facility] Start: 05-28-2024 End: 05-28-2024 Telephone encounter Estela Delgado AUD Work Phone: [facility] Start: 04-15-2024 End: 04-15-2024 Telephone encounter Estela Delgado AUD Work Phone: [facility] Start: 03-19-2024 End: 03-19-2024 Telephone encounter Estela Delgado AUD Work Phone: [facility] Start: 03-04-2024 End: 03-04-2024 Bamboo flowsheet Estela Delgado AUD Work Phone: [facility] Start: 03-04-2024 End: 03-04-2024 Bamboo flowsheet Estela Delgado AUD Work Phone: [facility] Start: 03-04-2024 End: 03-04-2024 ambulatory ESTELA DELGADO Not Available Start: 03-04-2024 End: 03-04-2024 Patient encounter procedure Estela Delgado AUD Work Phone: [facility] Comment on above: Sensorineural hearin g loss, bilateral (Primary Dx) Start: 02-06-2024 End: 02-06-2024 ambulatory VICTORINO REMY Facility:[facility] Start: 01-29-2024 End: 01-29-2024 Patient encounter procedure Eye Measurements Work Phone: Ophthalmology Comment on above: Combined forms of ag e-related cataract of right eye; Combined forms of age-related cataract of left eye Start: 01-29-2024 End: 01-29-2024 [facility] Pac Laurens 1 Work Phone: Pre Anesthesia Start: 01-29-2024 End: 01-29-2024 ambulatory VICTORINO REMY Facility:[facility] Start: 01-29-2024 End: 01-29-2024 Anesthesia consultation Pacc Laurens 1 Work Phone: Pre Anesthesia Comment on above: Pre-op evaluation (P rimary Dx); Psychogenic nonepileptic seizure; Temporal lobe epilepsy (HCC); Hyperlipidemia, unspecified hyperlipidemia type; Vitamin B12 deficiency; Type 2 diabetes mellitus without complication, without long-term current use of insulin (HCC); Hypothyroidism (acquired); Anxiety; Mild cognitive impairment of uncertain or unknown etiology Start: 01-29-2024 Encounter for other preprocedural examination VICTORINO REMY [facility] Start: 01-29-2024 End: 01-29-2024 Preprocedural examination done Pac Laurens 1 Work Phone: [facility] Work Phone: Start: 01-16-2024 End: 01-16-2024 Telephone encounter Estela Delgado AUD Work Phone: [facility] Start: 01-16-2024 End: 01-16-2024 Patient encounter procedure [facility] Ruth Ann QUEZADA SH [facility]ET Comment on above: Sensorineural hearin g loss, bilateral (Primary Dx) Start: 01-16-2024 End: 01-16-2024 ambulatory MARIANN LYNN Not Available Start: 01-15-2024 End: 01-15-2024 Patient encounter procedure Estela Delgado AUD Work Phone: [facility] Comment on above: Sensorineural hearin g loss, bilateral (Primary Dx); Tinnitus, bilateral Start: 01-15-2024 End: 01-15-2024 ambulatory ESTELA DELGADO Not Available Start: 01-15-2024 End: 01-15-2024 Bamboo flowsheet Estela Delgado AUD Work Phone: [facility] Start: 01-15-2024 End: 01-15-2024 Bamboo flowsheet Estela Delgado AUD Work Phone: [facility] Start: 01-09-2024 End: 01-09-2024 Office outpatient visit 25 minutes Mariann Lynn DO Work Phone: [facility] Comment on above: Type 2 diabetes xavier itus with peripheral neuropathy (CMS/HCC) (Primary Dx); Anxiety; Hypothyroidism (acquired) (CMS/HCC); Mixed hyperlipidemia (CMS/HCC); Temporal lobe epilepsy (CMS/HCC); Psychogenic nonepileptic seizure (CMS/HCC); Cortical age-related cataract of both eyes Start: 01-09-2024 End: 01-09-2024 ambulatory MARIANN LYNN Not Available Start: 01-03-2024 End: 01-03-2024 ambulatory KEENAN WHITFIELD Facility:[facility] Start: 01-03-2024 End: 01-03-2024 Patient encounter procedure Victorino Remy MD Work Phone: Ophthalmology Comment on above: Combined forms of ag e-related cataract of right eye (Primary Dx); Combined forms of age-related cataract of left eye; Type 2 diabetes mellitus without retinopathy (HCC); Other optic atrophy, bilateral; Insufficiency of tear film of both eyes; Ptosis of both eyelids Start: 11-22-2023 End: 11-22-2023 ambulatory GUILLE RUIZ Not Available Start: 11-22-2023 End: 11-22-2023 Patient encounter procedure DO Mariann Kooy Work Phone: [facility] Work Phone: Start: 11-22-2023 End: 11-22-2023 ambulatory DO Mariann Lynn Work Phone: [facility] Work Phone: Start: 10-24-2023 End: 10-24-2023 ambulatory SEBASTIAN HICKS Not Available Start: 09-05-2023 End: 09-05-2023 ambulatory AMBAR PARKER Not Available Start: 07-10-2023 End: 07-10-2023 ambulatory SEBASTIAN S LIEBENTMANUEL Not Available Start: 04-06-2023 End: 04-06-2023 ambulatory SEBASTIAN S LIEBENTMANUEL Not Available Start: 03-23-2023 End: 03-23-2023 ambulatory MARIANN LYNN Not Available Start: 12-04-2022 End: 12-04-2022 Emergency department patient visit DO Mariann Lynn Work Phone: [facility] Work Phone: Start: 11-16-2022 End: 11-16-2022 ambulatory DO Mariann Lynn Work Phone: [facility] Work Phone: Start: 11-16-2022 End: 11-16-2022 Patient encounter procedure DO Mariann Lynn Work Phone: [facility] Work Phone: Start: 07-11-2022 End: 07-11-2022 ambulatory DO Mariann Lynn Work Phone: [facility] Work Phone: Start: 07-11-2022 End: 07-11-2022 Patient encounter procedure DO Mariann Lynn Work Phone: [facility] [place] Work Phone: Start: 08-03-2020 End: 08-03-[address] HAYDE BERGER Facility: Procedures Date Procedure Procedure Detail Performing Clinician Start: 01-29-2024 ASCAN ONLY - DIAGNOS TIC OU (BOTH EYES) Victorino Remy MD Work Phone: Start: 01-29-2024 IOL BIOMETRY W/ IOL CALC OU (BOTH EYES) Victorino Remy MD Work Phone: Start: 01-15-2024 AUDITORY FUNCTION TESTS Estela HARLEY Work Phone: Start: 01-09-2024 Hemoglobin glycosylated a1c Mariann Chito Kooy DO Work Phone: Start: 01-03-2024 Computerized ophthal breann imaging retina Victorino Rmey MD Work Phone: Start: 01-03-2024 Computerized corneal topography uni/bi Victorino Remy MD Work Phone: Start: 11-22-2023 Dual energy X-ray absorptiometry DO Mariann Lynn Work Phone: Start: 11-22-2023 Screening mammograph y of bilateral breasts DO Mariann Lynn Work Phone: Start: 12-04-2022 CT of abdomen and pe lvis without contrast DO Mariann Lynn Work Phone: Start: 12-04-2022 Plain chest X-ray DO Sa raghav [employer] Work Phone: Start: 11-16-2022 Screening mammograph y of bilateral breasts DO Mariann Lynn Work Phone: Plan of Treatment Date Care Activity Detail Author Start: 07-08-2031 Urine microalbumin profile DTaP,Tdap,Td Vaccine (2 - Td or Tdap) [facility] Start: 01-02-2026 Glaucoma screening Diabetes: Retinopathy Screening [facility] Start: 07-24-2025 Screening for malignant neoplasm of colon [facility] Start: 01-05-2025 Pneumococcal Vaccine: 65+ Years (2 of 2 - PPSV23 or PCV20) Pneumococcal Vaccine: 65+ Years (2 of 2 - PPSV23 or PCV20) [facility] Comment on above: Postponed from 08/23/2021 (Patient Refus ed) Start: 01-02-2025 End: 06-26-2025 ASCAN ONLY - DIAGNOSTIC OU (BOTH EYES) ASCAN ONLY - DIAGNOSTIC OU (BOTH EYES) [facility] Imaging Routine Combined forms of age-related cataract of right eye Combined forms of age-related cataract of left eye Expected: 01/02/2025, Expires: 06/26/2025 [facility] Comment on above: Expected: 01/02/2025, Expires: Start: 01-02-2025 Glaucoma screening Dilated Retinal Exam [facility] Start: 01-02-2025 End: 02-20-2026 IOL BIOMETRY W/ IOL CALC OU (BOTH EYES) IOL BIOMETRY W/ IOL CALC OU (BOTH EYES) [facility] Imaging Routine Combined forms of age-related cataract of right eye Combined forms of age-related cataract of left eye Expected: 01/02/2025, Expires: 06/26/2025 [facility] Comment on above: Expected: 01/02/2025, Expires: Start: 11-25-2024 End: 11-25-2024 Patient encounter procedure 11/25/2024 1:45 PM EDT Office Visit [facility] [address] [place] [address] Guille Ruiz DO [address] [place] [address] [facility] Start: 09-22-2024 End: 09-22-2024 Patient encounter procedure 09/22/2024 2:00 PM EDT Office Visit EVELIN ASH[facility] [address] [place] [address] Trey Gibbons DO [address] [place] [address] [facility] Start: 09-04-2024 End: 09-04-2024 Patient encounter procedure [facility] [address] Start: 07-22-2024 End: 07-22-2024 Patient encounter procedure 07/22/2024 10:30 AM EDT Office Visit [facility] [address] [place] [id number] Mariann Lynn, DO [address] [place] [address] [facility] Start: 07-10-2024 Urine screening for protein Diabetes: Urine Protein Screening [facility] Start: 07-09-2024 Medicare Annual Wellness (AWV) Medicare Annual Wellness (AWV) [facility] Start: 07-08-2024 End: 07-08-2025 25-hydroxyvitamin D3 [Mass/volume] in Serum or Plasma Vitamin D 25 hydroxy Total Lab Routine Vitamin D deficiency Expected: 07/08/2024 (Approximate), Expires: 07/08/2025 [facility] Comment on above: Expected: 07/08/2024 (Approximate), Expi res: 07/08/2025 Start: 07-08-2024 End: 07-08-2025 CBC panel - Blood by Automated count CBC Lab Routine Hypothyroidism (acquired) ([facility]) Medication monitoring encounter Expected: 07/08/2024 (Approximate), Expires: 07/08/2025 [facility] Comment on above: Expected: 07/08/2024 (Approximate), Expi res: 07/08/2025 Start: 07-08-2024 End: 07-08-2025 Cobalamin (Vitamin B12) [Mass/volume] in Serum or Plasma Vitamin B12 Lab Routine Vitamin B12 deficiency Expected: 07/08/2024 (Approximate), Expires: 07/08/2025 [facility] Comment on above: Expected: 07/08/2024 (Approximate), Expi res: 07/08/2025 Start: 07-08-2024 End: 07-08-2025 Comprehensive metabolic 2000 panel - Serum or Plasma Comprehensive metabolic panel Lab Routine Mixed hyperlipidemia ([facility]) Type 2 diabetes mellitus with peripheral neuropathy ([facility]) Expected: 07/08/2024 (Approximate), Expires: 07/08/2025 [facility] Comment on above: Expected: 07/08/2024 (Approximate), Expi res: 07/08/2025 Start: 07-08-2024 Hemoglobin A1c measurement HbA1C [facility] Start: 07-08-2024 End: 07-08-2025 Hemoglobin A1c/Hemoglobin.total in Blood Hemoglobin A1c Lab Routine Type 2 diabetes mellitus with peripheral neuropathy ([facility]) Expected: 07/08/2024 (Approximate), Expires: 07/08/2025 [facility] Comment on above: Expected: 07/08/2024 (Approximate), Expi res: 07/08/2025 Start: 07-08-2024 End: 07-08-2025 Lipid 1996 panel - Serum or Plasma Lipid panel Lab Routine Mixed hyperlipidemia ([facility]) Type 2 diabetes mellitus with peripheral neuropathy ([facility]/HCC) Expected: 07/08/2024 (Approximate), Expires: 07/08/2025 [facility] Comment on above: Expected: 07/08/2024 (Approximate), Expi res: 07/08/2025 Start: 07-08-2024 End: 07-08-2025 Microalbumin/Creatinine panel in random Urine Microalbumin / creatinine urine ratio Lab Routine Type 2 diabetes mellitus with peripheral neuropathy ([facility]) Expected: 07/08/2024, Expires: 07/08/2025 [facility] Comment on above: Expected: 07/08/2024, Expires: Start: 07-08-2024 End: 07-08-2025 Thyrotropin [Units/volume] in Serum or Plasma TSH Lab Routine Hypothyroidism (acquired) ([facility]) Expected: 07/08/2024 (Approximate), Expires: 07/08/2025 [facility] Work Phone: Comment on above: Expected: 07/08/2024 (Approximate), Expi res: 07/08/2025 Start: 07-08-2024 End: 07-08-2025 Thyroxine (T4) free [Mass/volume] in Serum or Plasma T4, free Lab Routine Hypothyroidism (acquired) ([facility]) Expected: 07/08/2024 (Approximate), Expires: 07/08/2025 [facility] Comment on above: Expected: 07/08/2024 (Approximate), Expi res: 07/08/2025 Start: 07-08-2024 End: 07-08-2025 Urate [Mass/volume] in Serum or Plasma Uric acid Lab Routine Idiopathic chronic gout of multiple sites without tophus Expected: 07/08/2024 (Approximate), Expires: 07/08/2025 [facility] Comment on above: Expected: 07/08/2024 (Approximate), Expi res: 07/08/2025 Start: 04-09-2024 Hemoglobin A1c measurement Diabetes: Hemoglobin A1C DAMIEN gardner Start: 03-04-2024 End: 03-04-2024 Patient encounter procedure [facility] Start: 02-20-2024 End: 02-20-2024 Admission to same day surgery center 02/20/2024 9:40 AM EDT - 02/20/2024 10:15 AM EDT Surgery Ambulatory Surgery [address] [place] [address] Victorino Remy MD [address] [facility] [place] [address] PHACOEMULSIFICATION CATARACT IMPLANT INTRAOCULAR LENS W/O ENDOSCOPIC CYCLOPHOTOCOAGULATION Ambulatory Surgery Comment on above: PHACOEMULSIFICATION CATARACT IMPLANT INT RAOCULAR LENS W/O ENDOSCOPIC CYCLOPHOTOCOAGULATION Start: 02-20-2024 End: 02-20-2024 Oph bmtry prtl coher intrfrmtry io lens pwr marine OPHTHALMIC BIOMETRY BY PARTIAL COHERENCE INTERFEROMETRY W/INTRAOCULAR LENS POWER CALCULATION Combined forms of age-related cataract of left eye 02/20/2024 9:40 AM EDT ROCIO YANIRA Start: 02-20-2024 Subsequent hospital visit by physician 02/20/2024 9:40 AM EDT Hospital Encounter Ambulatory Surgery [address] [place] [address] Victorino Remy MD [address] [facility] [place] [address] Combined forms of age-related cataract of left eye [H25.812] Ambulatory Surgery Comment on above: Combined forms of age-related cataract o f left eye [H25.812] Start: 02-20-2024 End: 02-20-2024 Xcapsl ctrc rmvl insj io lens prosth w/o ecp PHACOEMULSIFICATION CATARACT IMPLANT INTRAOCULAR LENS W/O ENDOSCOPIC CYCLOPHOTOCOAGULATION Combined forms of age-related cataract of left eye 02/20/2024 9:40 AM EDT ROCIO YANIRA Start: 02-06-2024 End: 02-06-2024 Admission to same day surgery center 02/06/2024 11:10 AM EDT - 02/06/2024 11:45 AM EDT Surgery Ambulatory Surgery [address] [place] [address] Victorino Remy MD [address] [facility] [place] [address] PHACOEMULSIFICATION CATARACT IMPLANT INTRAOCULAR LENS W/O ENDOSCOPIC CYCLOPHOTOCOAGULATION Ambulatory Surgery Comment on above: PHACOEMULSIFICATION CATARACT IMPLANT INT RAOCULAR LENS W/O ENDOSCOPIC CYCLOPHOTOCOAGULATION Start: 02-06-2024 End: 02-06-2024 Oph bmtry prtl coher intrfrmtry io lens pwr marine OPHTHALMIC BIOMETRY BY PARTIAL COHERENCE INTERFEROMETRY W/INTRAOCULAR LENS POWER CALCULATION Combined forms of age-related cataract of right eye 02/06/2024 11:10 AM EDT ROCIO DOYLE Start: 02-06-2024 Subsequent hospital visit by physician 02/06/2024 11:10 AM EDT Hospital Encounter Ambulatory Surgery [address] [facility] [place] [address] Victorino Remy MD [address] [facility] [place] [address] Combined forms of age-related cataract of right eye [H25.811] Ambulatory Surgery Comment on above: Combined forms of age-related cataract o f right eye [H25.811] Start: 02-06-2024 End: 02-06-2024 Xcapsl ctrc rmvl insj io lens prosth w/o ecp PHACOEMULSIFICATION CATARACT IMPLANT INTRAOCULAR LENS W/O ENDOSCOPIC CYCLOPHOTOCOAGULATION Combined forms of age-related cataract of right eye 02/06/2024 11:10 AM EDT ROCIO DOYLE Start: 02-06-2024 End: 02-06-2024 Admission to same day surgery center 02/06/2024 9:50 AM EDT - 02/06/2024 10:25 AM EDT Surgery Ambulatory Surgery [address] [facility] [place] [address] Victorino Remy MD [address] [facility] [place] [address] PHACOEMULSIFICATION CATARACT IMPLANT INTRAOCULAR LENS W/O ENDOSCOPIC CYCLOPHOTOCOAGULATION Ambulatory Surgery Comment on above: PHACOEMULSIFICATION CATARACT IMPLANT INT RAOCULAR LENS W/O ENDOSCOPIC CYCLOPHOTOCOAGULATION Start: 02-06-2024 End: 02-06-2024 Oph bmtry prtl coher intrfrmtry io lens pwr marine OPHTHALMIC BIOMETRY BY PARTIAL COHERENCE INTERFEROMETRY W/INTRAOCULAR LENS POWER CALCULATION Combined forms of age-related cataract of right eye 02/06/2024 9:50 AM EDT ROCIO DOYLE Start: 02-06-2024 Subsequent hospital visit by physician 02/06/2024 9:50 AM EDT Hospital Encounter [facility] [address] [facility] [place] [address] Victorino Remy MD [address] [place] [address] Combined forms of age-related cataract of right eye [H25.811] Ambulatory Surgery Comment on above: Combined forms of age-related cataract o f right eye [H25.811] Start: 02-06-2024 End: 02-06-2024 Xcapsl ctrc rmvl insj io lens prosth w/o ecp PHACOEMULSIFICATION CATARACT IMPLANT INTRAOCULAR LENS W/O ENDOSCOPIC CYCLOPHOTOCOAGULATION Combined forms of age-related cataract of right eye 02/06/2024 9:50 AM EDT ROCIO DOYLE Start: 01-29-2024 End: 01-29-2024 Patient encounter procedure 01/29/2024 1:00 PM EDT Office Visit [facility] [address] [place] [address] CATARACT SURGERY RIGHT THEN LEFT KATIANA Ophthalmology Comment on above: CATARACT SURGERY RIGHT THEN LEFT KATIANA Start: 01-29-2024 End: 01-29-2024 Admission to same day surgery center 01/29/2024 12:20 PM EDT PAT Pre Anesthesia [address] [place] [address] 1, Pacc [place] [address] [place] [address] CATARACT SURGERY RIGHT THEN LEFT KATIANA Pre Anesthesia Comment on above: CATARACT SURGERY RIGHT THEN LEFT KATIANA Start: 01-16-2024 End: 01-16-2024 Patient encounter procedure 01/16/2024 10:00 AM EDT Office Visit [facility] [address] [facility] [place] [place] [phone] DAMIEN HARLEY Start: 01-15-2024 End: 01-15-2024 Patient encounter procedure 01/15/2024 2:30 PM EDT Office Visit DAMIEN HARLEY [address] [place] [address] Estela Delgado, AUD [address] [place] [address] Arrived [facility] HARLEY Comment on above: Arrived Start: 01-14-2024 End: 06-23-2025 CORNEAL TOPOGRAPHY ATLAS OU (BOTH EYES) CORNEAL TOPOGRAPHY ATLAS OU (BOTH EYES) [facility] Imaging Routine Combined forms of age-related cataract of right eye Combined forms of age-related cataract of left eye Expected: 01/14/2024, Expires: 06/23/2025 [facility] Work Phone: Comment on above: Expected: 01/14/2024, Expires: Start: 01-14-2024 End: 06-23-2025 CORNEAL TOPOGRAPHY PENTACAM OU (BOTH EYES) CORNEAL TOPOGRAPHY PENTACAM OU (BOTH EYES) [facility] Imaging Routine Combined forms of age-related cataract of right eye Combined forms of age-related cataract of left eye Expected: 01/14/2024, Expires: 06/23/2025 [facility] Comment on above: Expected: 01/14/2024, Expires: Start: 01-10-2024 Hemoglobin A1c measurement [facility]C [facility] Start: 01-06-2024 Covid-19 Vaccine () Covid-19 Vaccine () [facility] Start: 01-06-2024 Influenza [facility] Start: 05-07-2023 Advance Directive Discussion Advance Directive Discussion [facility] Start: 2023 RSV Vaccine (1 - 1-dose 75+ series) RSV Vaccine (1 - 1-dose 75+ series) [facility] Start: 01-05-2023 Covid-19 Vaccine () Covid-19 Vaccine () [facility] Start: 12-04-2022 Bacteria identified in Blood by Culture Blood Culture [facility] Start: 12-04-2022 Bacteria identified in Urine by Culture Urine Culture [facility] Start: 07-11-2022 [facility] Start: 08-23-2021 Pneumococcal Vaccine: 65+ (2 of 2 - PPSV23 or PCV20) Pneumococcal Vaccine: 65+ (2 of 2 - PPSV23 or PCV20) [facility] Start: 2008 RSV Vaccine (1 - 1-dose 60+ series) RSV Vaccine (1 - 1-dose 60+ series) [facility] Start: 1998 Shingrix Vaccine (1 of 2) Shingrix Vaccine (1 of 2) [facility] Start: 1993 Screening for malignant neoplasm of colon [facility] Start: 1966 Annual PCP Team Chronic Disease Visit Annual PCP Team Chronic Disease Visit [facility] Start: 1966 Anxiety Screening Anxiety Screening [facility] Start: 1966 Depression Screening Depression Screening [facility] Start: 1966 Hepatitis B surface antibody level LDL Cholesterol [facility] Start: 1966 Hepatitis C screening Hepatitis C Screening [facility] Start: 1958 Diabetic foot examination Diabetic Foot Exam [facility] Start: 1958 Hepatitis B screening Urine Albumin:Creatinine Ratio [facility] Start: 1948 Screening for malignant neoplasm of colon [facility] Glucose measurement estimated from glycated hemoglobin [facility] Hemoglobin A1c/Hemoglobin.total in Blood [facility] Patient Education Vertebral Comp ression Fracture ED Upper Back Pain ED [facility] Work Phone: Patient referral [facility] Work Phone: Immunizations Immunization Date Immunization Notes Care Provider Fa ny 07-07-2021 tetanus toxoid, redu tash diphtheria toxoid, and acellular pertussis vaccine, adsorbed DO Mariann Lynn Work Phone: [facility] 06-28-2021 pneumococcal conjuga te vaccine, 13 valent Estela HARLEY Work Phone: [facility] 06-02-2020 Pfizer Purple Cap SARS-CoV-2 Vaccination Estela Delgado AUD Work Phone: [facility] 03-11-2020 pneumococcal conjuga te vaccine, 13 valent Estela Delgado AUD Work Phone: [facility] Payers Date Payer Category Payer Medicaid [id number] 2022 Private Health Insurance [id number] 2022 Medicaid [id number] 2022 Self-pay [id number] 2013 Medicare [id number] 1959 Medicare [id number] 1959 Private Health Insurance [id number] 1948 Unknown [id number] 2.16.84 [id number] 1948 Unknown [id number] 2.16.84 [id number] 1948 Unknown [id number] 2.16.84 [id number] 1948 Unknown [id number] 2.16.84 [id number] 1948 Unknown [id number] 2.16.84 [id number] 1948 Unknown [id number] 2.16.84 0.1.636033.3.579.2.1259 1948 Unknown [id number] 2.16.84 0.1.113503.3.579.2.1259 1948 Unknown [id number] 2.16.84 0.1.476678.3.579.2.1259 1948 Unknown [id number] 2.16.84 [id number] 1948 Unknown [id number] 2.16.84 [id number] 1948 Unknown [id number] 2.16.840 .[id number] 1948 Unknown [id number] 2.16.840 .[id number] Unknown [id number] 2.16.8 [id number] Unknown [id number] 2.16.8 [id number] Unknown [id number] 2.16.8 [id number] Social History Date Type Detail Facility Start: 09-01-2021 End: 12-04-2022 Tobacco smoking status NHIS Never smoked tobacco (finding) [facility] Start: 1950 Sex Assigned At Female F [facility] Start: 12-04-2022 End: 01-03-2024 Tobacco use and exposure Smokeless tobacco non-user [facility] Start: 01-03-2024 End: 01-29-2024 Alcoholic beverage intake Ex-drinker (finding) [facility] Start: 07-10-2023 End: 01-03-2024 History of Social function [facility] Work Phone: Start: 07-10-2023 End: 01-03-2024 Tobacco use panel [facility] Work Phone: National Score (1-100), lower number is lower risk 63 [facility] Start: 1950 Sex assigned at Not on file C [facility] Start: 01-09-2024 Alcoholic beverage intake Lifetime non-drinker (finding) [facility] Start: 11-16-2022 Alcohol Comment caffeine: 2-3 cups per day tea or hot chocolate [facility] Clinical Notes 01-03-2024 to 07-09-2024 Telephone Encounter - Ambar Parker NP - 07/09/2024 9:58 AM ESTTelephone Encounter - Ambar Parker NP - 07/09/2024 9:58 AM ESTTelephone Encounter - Jigar Rincon MA - 07/09/2024 9:32 AM EST Note Date & Type Note Facility 07-09-2024 Telephone encounter Note Return call placed to [facility]. Spoke with nurse Hurt who again describes the patients episodes of psychcogenic nonepileptic seizures. The nurse denies any loss of consciousness, or loss of bowel or bladder control with these. The nurse verbalizes concerns that the patient is now involving other residents in the facility requiring them to clap to get her out of her episodes. I advised the nurse that the mainstay of treatment for these episodes is CBT and recommended further involvement with psychiatry. The nurse verbalized understanding. I also advised her to call with any further concerns with seizure activity or episodes of LOC. [facility] Work Phone: 07-09-2024 Miscellaneous Notes Return call placed to [facility]. Spoke with nurse Hurt who again describes the patients episodes of psychcogenic nonepileptic seizures. The nurse denies any loss of consciousness, or loss of bowel or bladder control with these. The nurse verbalizes concerns that the patient is now involving other residents in the facility requiring them to clap to get her out of her episodes. I advised the nurse that the mainstay of treatment for these episodes is CBT and recommended further involvement with psychiatry. The nurse verbalized understanding. I also advised her to call with any further concerns with seizure activity or episodes of LOC. [facility] Ashley calls stating that when the pt is over stimulated or in a high anxiety situation she begins to visibly shake. States that she expects someone to come and clap their hands for her to get out of the spell . They're wondering is this a behavioral or neurological situation? How should they proceed with this? Please advise. [phone] documented in this encounter [facility] 07-09-2024 Telephone encounter Note Glory Mora Ashley calls stating that when the pt is over stimulated or in a high anxiety situation she begins to visibly shake. States that she expects someone to come and clap their hands for her to get out of the spell . They're wondering is this a behavioral or neurological situation? How should they proceed with this? Please advise. KARINE [phone] [facility] 07-08-2024 Telephone encounter Note Orders printed and mailed to her so she can do at [facility] 07-08-2024 Miscellaneous Notes Orders printed and mailed to her so she can do at [facility] ----- Message from Dr. Mariann Lynn sent at 01/09/2024 11:15 AM EDT ----- Regarding: [facility] lab order Needs labs PTV in July (Mousie) documented in this encounter [facility] 07-08-2024 Telephone encounter Note ----- Message from Dr. Mariann Lynn sent at 01/09/2024 11:15 AM EDT ----- Regarding: [facility] lab order Needs labs PTV in July (Ashley) [facility] [employer] [facility] 07-02-2024 Telephone encounter Note Checked on status of Medicaid application for hearing aids. It still says pending - requires medical review...will check again to monitor status [facility] [employer] [facility] Work Phone: 07-02-2024 Miscellaneous Notes Checked on status of Medicaid application for hearing aids. It still says pending - requires medical review...will check again to monitor status documented in this encounter [facility] 05-28-2024 Telephone encounter Note Checked status of application- still pending. Discussed with Tc who was told that we should cancel current PA requests and re-submit. Resubmitted application today. Awaiting approval again. [facility] 05-28-2024 Miscellaneous Notes Checked status of application- still pending. Discussed with Tc who was told that we should cancel current PA requests and re-submit. Resubmitted application today. Awaiting approval again. documented in this encounter [facility] 04-15-2024 Telephone encounter Note Checked on status of hearing aid application in medicaid portal. Results still say pending medical review. [facility] [employer] Work Phone: 04-15-2024 Miscellaneous Notes Checked on status of hearing aid application in medicaid portal. Results still say pending medical review. documented in this encounter [facility] 03-19-2024 Telephone encounter Note I was able to access Medicaid portal and attempt prior authorization for the patient. Once approval is received, a hearing aid can be ordered. [facility] Work Phone: 03-19-2024 Miscellaneous Notes I was able to access Medicaid portal and attempt prior authorization for the patient. Once approval is received, a hearing aid can be ordered. documented in this encounter [facility] 03-04-2024 History of Present illness Narrative Impressions: Pt was seen today for an impression of her right ear. This was taken without incident. Unfortunately, the Medicaid portal is still not cooperating for prior auths and this was explained to patient. Hopefully, this will be resolved in the near future. In the meantime, her impression will be held in the [facility]. She would like 1 ITC with clear shell for the right ear. Patient's caregiver brought in hearing aids that were given to her. She was curious if these could be repurposed for the patient. One set was Oticon RICs. Explained we could not make adjustments to these aids, as we do not have the equipment/software. She also had one battery Phonak BERTHA aid (unsure of tech) and another unknown aid. Caregiver feels patient would not wear the BERTHA style, as she would rather have custom aids. documented in this encounter [facility] 02-20-2024 Note HNO ID: [id number] Author: DEMI PONCE APRN.MEDICAL MALPRACTICE PARALEGAL Service: ? Author Type: Nurse [employer] Lead Type: Anesthesia Procedure Notes Filed: 02/20/2024 10:26 Note Text: ANESTHESIOLOGY PROCEDURE NOTE Airway General Information Procedure Start Time/Medication Administration: 02/20/2024 10:18 AM Procedure End Time: 02/20/2024 10:18 AM Patient location during procedure: OR Patient identity confirmed: arm band and patient Staffing Anesthesiologist: Guille Villalta II, DO MEDICAL MALPRACTICE PARALEGAL: Demi Ponce APRN.MEDICAL MALPRACTICE PARALEGAL Performed by: HELGA Indications and Patient Condition Indications for airway management: anesthesia Preoxygenated: yes anesthesia circuit Patient position: sniffing Method: asleep Difficult Mask: No Final Airway Details Final airway type: supraglottic airway Number of attempts at approach: 1 Final Supraglottic Airway: IGEL Size 4 Seal Adequate: yes Airway not difficult SIGNATURE: Demi Ponce APRN.MEDICAL MALPRACTICE PARALEGAL PATIENT NAME: Eva Mercado DATE: February 20, 2024 TIME: 10:25 AM CSN: [id number] [facility] 02-06-2024 Note HNO ID: [id number] Author: NICKIE ROSS APRN.MEDICAL MALPRACTICE PARALEGAL Service: ? Author Type: Nurse [employer] Lead Type: Anesthesia Procedure Notes Filed: 02/06/2024 10:08 Note Text: ANESTHESIOLOGY PROCEDURE NOTE Airway General Information Procedure Start Time/Medication Administration: 02/06/2024 9:56 AM Procedure End Time: 02/06/2024 9:56 AM Patient location during procedure: OR Patient identity confirmed: arm band and patient Staffing MEDICAL MALPRACTICE PARALEGAL: Nickie Ross APRN.MEDICAL MALPRACTICE PARALEGAL Performed by: HELGA Indications and Patient Condition Indications for airway management: anesthesia Preoxygenated: yes anesthesia circuit Patient position: sniffing Method: asleep Difficult Mask: No Final Airway Details Final airway type: supraglottic airway Number of attempts at approach: 1 Final Supraglottic Airway: IGEL Size 4 Seal Adequate: yes Airway not difficult SIGNATURE: Nickie Ross APRN.CRNA PATIENT NAME: Eva Mercado DATE: February 06, 2024 TIME: 10:08 AM CSN: [id number] [facility] 02-03-2024 History of Present illness Narrative Associated Problem(s): Mixed hyperlipidemia (CMS/HCC) -Reinforced importance of dietary modification, regular cardiovascular activity and compliance with any prescribed medication for custodial management/control of lipids. High cholesterol (especially LDL) is associated with an elevated risk of cardiovascular disease. This includes coronary artery disease. stroke and peripheral vascular disease. High cholesterol has also been linked to diabetes and high blood pressure risks. By appropriately treating LDL, these risks can be reduced. Associated Problem(s): Hypothyroidism (acquired) (CMS/HCC) She is clinically euthyroid. We will continue current dose of levothyroxine and continue to monitor TFTs. Associated Problem(s): Type 2 diabetes mellitus with peripheral neuropathy (CMS/[facility]) She has been eating more sweets lately. I stressed that she needs reduce this as her A1c has increased >1%. I advised her that it is possible her cataract surgery will be pushed back due to this, but that will be up to her Community Life Director. I do not want to add another medication at this time as I feel if she curbs her CHO intake her control will improve. Images from the original note were not included. Subjective Patient ID: Karen Mercado (: [id number]) is a 73 y.o. female who presents for Routine 6 Mo Follow Up. HPI : Karen is being seen today for a routine six month follow up. Lab results from 07/2023 are documented in EHR for reference. She is due for an HbA1c; so it will be obtained in office today. Care Gaps do not indicate any screenings or vaccinations that are due at this time. She is accompanied by her sister-in- law (which is typical). She reports that Karen will be having cataract surgery at [facility] in February. (02/07/24 and 02/20/24) Diabetes Management -DM was diagnosed several years ago -Associated complications: Neuropathy -Current Medications: Metformin and Atorvastatin -Currently reports doing FSBG checks weekly per the staff at [facility]; pt is unsure of the results -Previous A1c completed: in 07/2023 = 7.4% -Most recent A1c: in 01/2024 = 8.5% (admits she has been eating more CHO and desserts lately). -Last LEONIDAS: 07/2023 -Last lipids: 07/2022 (lipid panel was ordered back in July, all other labs were completed but the lipid panel) -Last DM eye exam completed: 01/03/24 -Findings on eye exam: No evidence of DR or macular edema Current Outpatient Medications Medication Instructions Acetaminophen 500 mg, Oral, Every 8 hours PRN atorvastatin (Lipitor) 40 MG tablet TAKE 1 TABLET(40 MG) BY MOUTH IN THE MORNING Calcium Carb-Cholecalciferol 600-200 MG-UNIT tablet Every 12 hours cholecalciferol (VITAMIN D-3) 125 mcg, Oral, Daily cyanocobalamin (VITAMIN B-12) 1,000 mcg, Oral, Daily cyclobenzaprine (Flexeril) 5 MG tablet TAKE 1 TABLET(5 MG) BY MOUTH AT BEDTIME diclofenac sodium 1 % gel as directed Externally FLUoxetine (PROZAC) 20 mg, Oral, Daily lamoTRIgine (LaMICtal) 200 MG tablet Oral, 2 times daily levothyroxine (SYNTHROID, LEVOXYL) 75 mcg, Oral, Daily before breakfast loratadine (CLARITIN) 10 mg, Oral, Daily LORazepam (Ativan) 0.5 MG tablet One tablet the night before appointments and one tablet the day of appointments memantine (NAMENDA) 5 mg, Oral, 2 times daily metFORMIN (Glucophage) 850 MG tablet TAKE 1 TABLET(850 MG) BY MOUTH IN THE MORNING AND IN THE EVENING WITH MEALS Multiple Vitamins-Minerals (Centrum Women) tablet Every 24 hours Multiple Vitamins-Minerals (OCUVITE ADULT 50+ PO) 1 tablet, Oral, Daily naproxen (Naprosyn) 250 MG tablet TAKE 1 TABLET BY MOUTH TWICE DAILY WITH FOOD OR MILK polyethylene glycol, PEG, 3350 (Glycolax, Miralax) powder 17 g, Oral, Daily PreviDent 5000 Booster Plus 1.1 % paste BRUSH AT BEDTIME- SPIT OUT AND DO NOT RINSE Sodium Fluoride 5000 Plus 1.1 % cream No Known Allergies Patient Active Problem List Diagnosis Bilateral tinnitus Chronic gout of multiple sites Hypothyroidism (acquired) (CMS/HCC) MCI (mild cognitive impairment) Mixed hyperlipidemia (CMS/HCC) Psychogenic nonepileptic seizure (CMS/HCC) Sensorineural hearing loss, bilateral Temporal lobe epilepsy (CMS/HCC) Type 2 diabetes mellitus with peripheral neuropathy (CMS/HCC) Vitamin D deficiency Dry mouth Anxiety History of abnormal mammogram Onychomycosis Metatarsalgia of right foot Vitamin B12 deficiency Tremor Social History Tobacco Use Smoking status: Never Smokeless tobacco: Never Vaping Use Vaping status: Never Used Substance Use Topics Alcohol use: Never Comment: caffeine: 2-3 cups per day tea or hot chocolate Drug use: Never Review of Systems Constitutional: Negative for activity change, appetite change, fatigue and unexpected weight change. HENT: Negative for ear pain, hearing loss, postnasal drip, sinus pain, trouble swallowing and voice change. Hx voice change due to vocal cord paralysis, but this resolved after a few months and felt to be due to viral cause Eyes: Positive for visual disturbance. Negative for photophobia and pain. She is planning to have cataract surgery 02/2024 Respiratory: Negative for cough, shortness of breath and wheezing. Cardiovascular: Negative for chest pain, palpitations and leg swelling. Gastrointestinal: Negative for abdominal distention, abdominal pain, blood in stool and nausea. Genitourinary: Negative for difficulty urinating, dysuria and hematuria. Musculoskeletal: Positive for arthralgias. Negative for back pain, gait problem and joint swelling. -hx of osteomyelitis of the left ring finger ~07/2020. She was treated by Ortho (Dr Berger) with IV rocephin and then bactrim for several weeks. -Knee will bother her sometimes Skin: Negative for rash and wound. Neurological: Positive for seizures. Negative for dizziness, tremors, speech difficulty, weakness, numbness and headaches. She has been diagnosed with temporal lobe epilepsy and she also has psychogenic seizures. She follows with Dr Loera (Neurology). Her psychogenic seizures, consist of head banging movements lasting ~20 seconds. She can talk during the episodes and/or pickling solution maker the conversation when it is over. - 12/2020- since her last appt, Dr Loera has started her on Fluoxetine and when she starts to have one of the episodes, her sister clapped once and the head banging and rocking stopped immediately. 07/2022 Today she started to have 3 episodes that abated immediately with clap. ---- 12/2023: only 1 episode today that was terminated by me clapping once Psychiatric/Behavioral: Negative for confusion, decreased concentration, hallucinations and sleep disturbance. Endocrine: Negative for polydipsia, polyphagia and polyuria. Allergic/Immunologic: Negative for immunocompromised state. Objective Vital signs: BP 116/62 Pulse 83 Wt 173 lb 12.8 oz SpO2 99% BMI 27.22 kg/m Recent Results (from the past 2016 hour(s)) POCT Glycated hemoglobin, total Collection Time: 01/09/24 10:57 AM Result Value Ref Range Hemoglobin A1C 8.5 Physical Exam Constitutional: General: She is not in acute distress. Appearance: Normal appearance. HENT: Head: Normocephalic. Eyes: General: No scleral icterus. Extraocular Movements: Extraocular movements intact. Conjunctiva/sclera: Conjunctivae normal. Neck: Vascular: No carotid bruit. Cardiovascular: Rate and Rhythm: Normal rate and regular rhythm. Heart sounds: No murmur heard. Comments: PERIPHERAL PULSES:1/4 dorsalis pedis and 0/4 posterior tibial bilaterally. Pulmonary: Effort: Pulmonary effort is normal. No respiratory distress. Breath sounds: Normal breath sounds. No wheezing or rhonchi. Musculoskeletal: General: No swelling. Normal range of motion. Cervical back: Normal range of motion. Comments: Callus formation 1st and 3rd metatarsals of right foot Skin: General: Skin is warm and dry. Coloration: Skin is not jaundiced. Findings: No rash. Neurological: General: No focal deficit present. Mental Status: She is alert and oriented to person, place, and time. Motor: No weakness. Gait: Gait normal. Psychiatric: Mood and Affect: Mood normal. Thought Content: Thought content normal. Judgment: Judgment normal. Assessment/Plan Problem List Items Addressed This Visit Hypothyroidism (acquired) (CMS/HCC) Overview Prescribed levothyoxine 75 mcg daily Current Assessment & Plan She is clinically euthyroid. We will continue current dose of levothyroxine and continue to monitor TFTs. Mixed hyperlipidemia (CMS/HCC) Overview Prescribed atorvastatin Current Assessment & Plan -Reinforced importance of dietary modification, regular cardiovascular activity and compliance with any prescribed medication for custodial management/control of lipids. High cholesterol (especially LDL) is associated with an elevated risk of cardiovascular disease. This includes coronary artery disease. stroke and peripheral vascular disease. High cholesterol has also been linked to diabetes and high blood pressure risks. By appropriately treating LDL, these risks can be reduced. Temporal lobe epilepsy (CMS/HCC) Overview -She is diagnosed with temporal lobe epilepsy and she also has psychogenic seizures. She follows with Dr Loera (Neurology). Her psychogenic seizures, consist of head banging movements lasting ~20 seconds. She can talk during the episodes and/or pickling solution maker the conversation when it is over. 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 Her epileptic seizures are very well controlled on lamotrigine. Per family no epileptic events in over 2 years. - PLAN - Continue lamotrigine 200 mg twice daily - SUDEP discussed Type 2 diabetes mellitus with peripheral neuropathy ([facility]) - Primary Overview Prescribed metformin 850 mg BID Current Assessment & Plan She has been eating more sweets lately. I stressed that she needs reduce this as her A1c has increased >1%. I advised her that it is possible her cataract surgery will be pushed back due to this, but that will be up to her Community Life Director. I do not want to add another medication at this time as I feel if she curbs her CHO intake her control will improve. Relevant Orders POCT Glycated hemoglobin, total (Completed) Psychogenic nonepileptic seizure (CMS/HCC) Overview -She had 3 day monitoring 2018 with some discharges, but no true sz -Based on recommendation of Neurologist, when she has one of these episodes, if someone claps loudly the activity terminates immediately Frequent psychogenic nonepileptic seizures. Typically gets heavy breathing and upper body shaking but she is able to speak throughout them and has no postictal period. When someone claps they stop abruptly. Usually has at least one during physical examination and this was the case today. - PLAN - She is on lamotrigine 200mg BID - Continue fluoxetine 20 mg daily - Consider cognitive behavioral therapy and referral to psych but both the family and the patient decline this today as they feel she is at her baseline - Continue memantine 5 mg twice daily - Could consider seroquel for the hallucinations though this is deferred today per patient and family request Anxiety Relevant Medications FLUoxetine (PROzac) 20 MG capsule Other Visit Diagnoses Cortical age-related cataract of both eyes She will be having cataract surgery at [facility] in February. (02/07/24 and 02/20/24) Health Maintenance Topic Date Due Pneumococcal Vaccine: 65+ Years (2 of 2 - PPSV23 or PCV20) 01/05/2025 (Originally 08/23/2021) Diabetes: Hemoglobin A1C 04/09/2024 Medicare Annual Wellness (AWV) 07/09/2024 Diabetes: Urine Protein Screening 07/10/2024 Colorectal Cancer Screening 07/24/2025 Diabetes: Retinopathy Screening 01/02/2026 Mammogram Discontinued Influenza Vaccine Discontinued Immunization History Administered Date(s) Administered Pfizer Purple Cap SARS-CoV-2 Vaccination 05/12/2020, 06/02/2020 Pneumococcal Conjugate PCV 13 03/11/2020, 06/28/2021 Tdap 07/07/2021 -Patient's chronic conditions have been reviewed in preparation for this appointment. Protocols reviewed and updated. A collaborative plan of care has been created for pt regarding specific health concerns. Any barriers to care have been identified and addressed. Any part of this document that has been added/copied from other documents has been reviewed for accuracy and updated as appropriate at the time of the patient encounter. -Follow up in about 6 months (around 07/08/2024) for MW with STACKER OPERATOR and routine 6 month follow up with me. Mariann Lynn D.O. Board Certified Main Entree Cook And Cashier documented in this encounter [facility] 01-29-2024 Note HNO ID: [id number] Author: KATIE KIMBROUGH COT Service: ? Author Type: Cardiopulmonary Technologist Chief Type: Progress Notes Filed: 01/29/2024 13:51 Note Text: Confirmed Aim: [place] Prior Refractive surgery No Written pre-op instructions regarding eye drops and care reviewed with patient. KELLI Charles January 29, 2024 1:[address] [facility] 01-29-2024 Note Date of Procedure 01/29/2024. Cardiopulmonary Technologist Chief Information Professional Security Officer: OD AL 23.25 OS AL 22.95. Notes Ascan report in paper chart and scanned to patient chart after post op period. [facility] 01-29-2024 History of Present illness Narrative Confirmed Aim: [place] Prior Refractive surgery No Written pre-op instructions regarding eye drops and care reviewed with patient. KELLI Charles January 29, 2024 1:51 PM documented in this encounter [facility] 01-29-2024 Note Date of Procedure 01/29/2024. Cardiopulmonary Technologist Chief Information Professional Security Officer: faisal. Notes Measurements only - see Procedure Record under Scanned Documents for signed results. 1. Have you ever had surgery in your eyes before? No 2. Have you ever had a refractive procedure performed on your eyes? No 3. Have you worn contact lenses in the last 3 months? No [facility] 01-29-2024 Instructions Zacarias Ray APRN.SUPERVISOR TELEPHONE INFORMATION - 01/29/2024 12:23 PM EDT Images from the original note were not included. [facility] PATIENT PREOPERATIVE INSTRUCTIONS Victorino Remy MD has scheduled you for your procedure at this surgery center: [facility]: [phone] --[address] [place] [address]. Please read below carefully for your personalized instructions. Arrival Time for Surgery: - The Surgery Center or hospital where you are having surgery will call the afternoon before surgery (or Sunday for Sunday surgery) with a scheduled arrival time. - If you have not heard by 4 pm, please contact the surgery center above. Please be aware that emergency situations arise, which may delay or change your surgical time. If this happens, we will notify you as soon as possible and regret any inconvenience Dietary Restrictions: - No solid food after midnight. - You may have 12 ounces of clear liquids (water, clear juices such as apple juice or gatorade, carbonated beverages, clear tea, black coffee, jello) until 2 hours before scheduled arrival at facility. - no milk / coffee creamer - no pulp juices Medications: Unless instructed differently below, stay on all of your medications until your surgery. Approved medications to take the morning of surgery with a sip of water: Lamotrigine, Fluoxetine(Prozac), Atorvastatin(Lipitor), Levothyroxine(Synthroid) and Ativan If you start any new medications after today's visit, please contact the surgeon's office. Blood Thinning Medications: You do not need to hold blood thinners for cataract surgery Important Reminders: - If you are prescribed inhalers for breathing, continue using them. - Candy, mints, and tobacco products are NOT permitted the morning of surgery. - Hearing aids and glasses may be worn the morning of surgery. - NO jewelry, body piercings, makeup, hairpins or contacts are to be worn the day of surgery. - You may wear your partials/dentures, but you may be asked to remove them prior to you're procedure If you develop symptoms such as a fever, cold, or flu, or have other changes to your health within TWO DAYS of scheduled surgery or the morning of surgery, please contact the surgery center above. Personal Belongings: -Please have photo ID and insurance cards. -If you do not have a copy of advance directives on file with us, please bring a copy with you on the day of surgery. - Leave ALL valuables and money at home or with family members. For Outpatient Procedures: - YOU MUST HAVE A RESPONSIBLE FACING BASTER TAKE YOU HOME. A PRINCIPAL MECHANICAL ENGINEER OR RFID STRATEGIST CANNOT BE MADE A RESPONSIBLE FACING BASTER. - We recommend that a responsible person stays with you overnight to take care of you. - You cannot stay in a hotel alone after outpatient surgery. You will not be permitted to have your surgery, if you do not have someone to take care of you. If you already have an Advance Directive, please fax a copy to [phone] or email to for it to be added to your chart. If you do not have an Advance Directive, you can find the appropriate form and more information at [email or web address]. We recommend that you complete the Advance Directive form found on the website and bring it with you the day of your surgery. It can be witnessed and scanned into your chart that day. Zacarias Ray APRN.CINTHIA documented in this encounter [facility] 01-29-2024 History and physical note Images from the original note were not included. [facility] HISTORY AND PHYSICAL EXAMINATION SERVICE DATE: 01/29/2024 SERVICE TIME: 12:17 PM PRIMARY CARE PHYSICIAN: No primary care provider on file. REASON FOR VISIT: Eva Mercado is a 73 year old female who is scheduled for at the request of Dr. Victorino Remy for consultation. My final recommendation will be communicated back to the requesting physician by way of shared medical record or letter. Assessment Psychogenic nonepileptic seizure Assessment:-Based on recommendation of Neurologist, when she has one of these episodes, if someone claps loudly the activity terminates immediately Frequent psychogenic nonepileptic seizures. Typically gets heavy breathing and upper body shaking but she is able to speak throughout them and has no postictal period. When someone claps they stop abruptly. Usually has at least one during physical examination and this was the case today. - PLAN - She is on lamotrigine 200mg BID - Continue fluoxetine 20 mg daily - Consider cognitive behavioral therapy and referral to psych but both the family and the patient decline this today as they feel she is at her baseline - Continue memantine 5 mg twice daily - Could consider seroquel for the hallucinations though this is deferred today per patient and family request Last Assessment & Plan: She had some increased episodes during her appt today. Admits it is due some increased stress from missing her nap to come to appt and having extra person see her (for MW portion). 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 Her epileptic seizures are very well controlled on lamotrigine. Per family no epileptic events in over 2 years. PLAN - Continue lamotrigine 200 mg twice daily Hyperlipidemia Assessment: stable on medication Vitamin B12 deficiency Assessment: stable on B12 Type 2 diabetes mellitus (HCC) Assessment: stable on oral medication Hypothyroidism (acquired) Assessment: stable on mediation Anxiety Assessment: stable on medication Denies any suicidal ideation Mild cognitive impairment of uncertain or unknown etiology Assessment: symptoms stable on Namenda Lopez Activity Status Index: METS: Walk indoors, such as around the house (1.75 METs) Do light work around the house, such as dusting or washing dishes (2.70 METs) Take care of self; that is eating, dressing, bathing, using the toilet (2.75 METs) Walk a block or two on level ground (2.75 METs) DASI Score: 9.95 Patient denies any chest pain or undue shortness of breath with the above physical activity. Patient is partially dependent (walks with walker). Clinical Frailty Scale: 4. Apparently vulnerable STOP-Bang Score: Patient over 50 years old Denies snoring loudly Denies feeling tired, fatigued, or sleepy during the daytime Has not been observed to stop breathing or choking/gasping during sleep Denies having high blood pressure BMI less than or equal to 35 kg/m^2 Does not have a large neck Non-male patient STOP-Bang Score: 1 [id number] Score: Age: >=75 Sex: female CHF history: No Hypertension history: No Stroke/TIA/thromboembolism history: No Vascular disease history: No Diabetes history: Yes [id number] Score: 4 ARISCAT Score: Age: 51-80 Preoperative SpO2: >=96% Respiratory infection in the last month: No Preoperative anemia: Yes Surgical incision: peripheral Duration of surgery: <2 hrs Emergency procedure: No ARISCAT Score: 14 ANESTHESIA FINDINGS: Intubation History: No prior intubation Significant Anesthesia Considerations: none Airway History: No prior intubation I - PHYSICAL EVALUATION AIRWAY Patient intubated: No. Tracheostomy tube not present Mallampati: II. TM distance: >3 FB. Neck ROM: full ROM without neurological symptoms. Mouth opening: adequate. Short neck: no. Thick neck: no Jackson present: no Lip Bite Test: II Microretrognathia/Micronagthia/Re cessed Chin: No DENTAL Dental findings: teeth intact. II - ANESTHESIA PLAN Anesthetic plan additional comments: *PACC/TCI - anesthesia choice. Beta Jo Monitoring Plan Post Procedure Analgesic Plan Prepared for surgery: This patient is optimally prepared for surgery.- Patient to be done under [place] CONSULTS: Patient does not require consults for optimization at this time. The Following Tests/Procedures Have Been Initiated: Labs not indicated per PACC protocol, EKG not indicated per PACC protocol Planned Anesthetic: Per anesthesia choice Subjective CHIEF COMPLAINT: Bilateral change of vision HPI: 73 year old female with bilateral change of vision that has been ongoing > 1 year. Patient states that she has blurred Vision,decreased vision,difficulty with reading,difficulty with watching television,dryness,glare,halos . REVIEW OF SYSTEMS: PAIN ASSESSMENT: General: No weight loss, malaise or fevers. 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 No history of respiratory/pulmonary symptoms or problems. Cardiovascular: No history of HTN requiring medication, no history of angina, CHF, LA, cardiac surgery or stents. Denies rest pain, gangrene or revascularization/amputation for PVD. No history of cardiovascular symptoms or problems. Positive for HLD GI: No history of GI symptoms or problems. No history of esophageal varices, recent ascites, or ETOH greater than 2 drinks per day. 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 : Denies, No LMP recorded. Patient is postmenopausal. Endocrine: Diabetes Mellitus on oral agent, Hypothyroidism Hematology: Anemia due to Vitamin B12 deficiency Oncology: No history of CA metastasis, chemo within 30 days, or radiotherapy within 90 days. Has not lost 10% of body wt in 6 months. No history of oncological symptoms or problems. Psych: Anxiety Musculoskeletal: Negative for joint pain or swelling, back pain or muscle pain. Skin: Negative for lesions, rash and itching. 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 Anxiety Hypothyroidism (Acquired) Mild Cognitive Impairment of Uncertain Or Unknown Etiology Hyperlipidemia Psychogenic Nonepileptic Seizure Temporal Lobe Epilepsy (Hcc) Type 2 Diabetes Mellitus (Hcc) Vitamin B12 Deficiency Covid Immunization Dates Overdue - Covid-19 Vaccine ( season) Overdue since 01/06/2024 06/02/2020 Imm Admin: COVID-19 original vaccine, age 12+ yr, monovalent ([employer] - PURPLE TOP) 05/12/2020 Imm Admin: COVID-19 original vaccine, age 12+ yr, monovalent ([employer] - PURPLE TOP) PAST MEDICAL HISTORY Diagnosis Date Diabetes mellitus (HCC) Generalized anxiety disorder 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 Taking Yes acetaminophen (TYLENOL) 500 mg tablet Q6H Taking Yes atorvastatin (LIPITOR) 40 mg tablet TAKE 1 TABLET(40 MG) BY MOUTH IN THE MORNING Taking Yes cholecalciferol (VITAMIN D3) 5,000 unit tab 5,000 Units. Taking Yes cyanocobalamin (VITAMIN B-12) 1,000 mcg tab once daily. Taking Yes cyclobenzaprine (FLEXERIL) 5 mg tablet TAKE 1 TABLET(5 MG) BY MOUTH AT BEDTIME Taking Yes diclofenac (VOLTAREN) 1 % topical gel as directed Externally Taking Yes PREVIDENT 5000 BOOSTER PLUS 1.1 % BRUSH AT BEDTIME- SPIT OUT AND DO NOT RINSE Taking Yes FLUoxetine (PROZAC) 20 mg capsule Take 20 mg by mouth. Taking Yes levothyroxine (SYNTHROID) 75 mcg tablet TAKE 1 TABLET BY MOUTH EVERY DAY IN THE MORNING BEFORE MEALS Taking Yes loratadine (CLARITIN) 10 mg tablet Take 1 tablet by mouth once daily. Taking Yes LORazepam (ATIVAN) 0.5 mg One tablet the night before appointments and one tablet the day of appointments Taking Yes memantine (NAMENDA) 5 mg tablet TAKE 1 TABLET BY MOUTH EVERY MORNING AND 1 TABLET EVERY NIGHT AT BEDTIME Taking Yes metFORMIN (GLUCOPHAGE) 850 mg tablet TAKE 1 TABLET(850 MG) BY MOUTH IN THE MORNING AND IN THE EVENING WITH MEALS Taking Yes naproxen (NAPROSYN) 250 mg tablet TAKE 1 TABLET BY MOUTH TWICE DAILY WITH FOOD OR MILK Taking Yes polyethylene glycol 3350 17 gram packet Take 17 g by mouth. Taking Yes GARLIC Q48H Taking Yes beta-carotene,A,-vits C,E/mins (OCUVITE ORAL) Take by mouth. Taking Yes lamoTRIgine (LAMICTAL) 200 mg tablet Take 200 mg by mouth. Taking Yes ofloxacin (OCUFLOX) 0.3 % ophthalmic solution 1 Drop four times daily. One drop in the OPERATIVE EYE only four times a day starting the day before surgery Taking Yes LORazepam (ATIVAN) 0.5 mg Take 1 tablet by mouth every 8 hours for 2 days. Patient should start on February 06, 2024. No medication comments found. ALLERGIES No Known Allergies Objective PHYSICAL EXAM: VITALS: BP 157/72 Pulse 75 Temp 98.5 Resp 16 Ht 5' 5 (1.65m) Wt 171 lb 15.3 oz (78.0kg) SpO2 96% BMI 28.62 kg/(m^2). General: Alert and oriented, No acute distress Skin: Normal color, no rash, no lesions. Cardiovascular: Normal S1 & S2, no rubs, murmurs or gallops. No JVD. Pulse regular. Lungs: Normal breath sounds, no wheezes or crackles. Abdomen: Soft, non-tender, no rigidity., Positive bowel sounds Extremities: No deformity, no edema or tenderness, no joint swelling or clubbing. Neurological: Abnormal gait walks with walker Pulses: Carotid and radial pulses normal +2. Diagnostic tests reviewed for today's visit: Lab Value Units Date High Low ABORHD No results within date range. ABSCREEN No results within date range. No results found for: HBA1C No new labs or tests Instructions Given to Patient: Instructions located in the after visit summary. Patient given verbal and written preop instructions and voices comprehension and compliance. SIGNATURE: Zacarias Ray APRN.CNP PATIENT NAME: Eva Mercado DATE: 01/29/2024 TIME: 12:27 PM T [facility] 01-29-2024 History and physical note Images from the original note were not included. [facility] HISTORY AND PHYSICAL EXAMINATION SERVICE DATE: 01/29/2024 SERVICE TIME: 12:17 PM PRIMARY CARE PHYSICIAN: No primary care provider on file. REASON FOR VISIT: Eva Mercado is a 73 year old female who is scheduled for at the request of Dr. Victorino Remy for consultation. My final recommendation will be communicated back to the requesting physician by way of shared medical record or letter. Assessment Psychogenic nonepileptic seizure Assessment:-Based on recommendation of Neurologist, when she has one of these episodes, if someone claps loudly the activity terminates immediately Frequent psychogenic nonepileptic seizures. Typically gets heavy breathing and upper body shaking but she is able to speak throughout them and has no postictal period. When someone claps they stop abruptly. Usually has at least one during physical examination and this was the case today. - PLAN - She is on lamotrigine 200mg BID - Continue fluoxetine 20 mg daily - Consider cognitive behavioral therapy and referral to psych but both the family and the patient decline this today as they feel she is at her baseline - Continue memantine 5 mg twice daily - Could consider seroquel for the hallucinations though this is deferred today per patient and family request Last Assessment & Plan: She had some increased episodes during her appt today. Admits it is due some increased stress from missing her nap to come to appt and having extra person see her (for MW portion). 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 Her epileptic seizures are very well controlled on lamotrigine. Per family no epileptic events in over 2 years. PLAN - Continue lamotrigine 200 mg twice daily Hyperlipidemia Assessment: stable on medication Vitamin B12 deficiency Assessment: stable on B12 Type 2 diabetes mellitus (HCC) Assessment: stable on oral medication Hypothyroidism (acquired) Assessment: stable on mediation Anxiety Assessment: stable on medication Denies any suicidal ideation Mild cognitive impairment of uncertain or unknown etiology Assessment: symptoms stable on Namenda Lopez Activity Status Index: METS: Walk indoors, such as around the house (1.75 METs) Do light work around the house, such as dusting or washing dishes (2.70 METs) Take care of self; that is eating, dressing, bathing, using the toilet (2.75 METs) Walk a block or two on level ground (2.75 METs) DASI Score: 9.95 Patient denies any chest pain or undue shortness of breath with the above physical activity. Patient is partially dependent (walks with walker). Clinical Frailty Scale: 4. Apparently vulnerable STOP-Bang Score: Patient over 50 years old Denies snoring loudly Denies feeling tired, fatigued, or sleepy during the daytime Has not been observed to stop breathing or choking/gasping during sleep Denies having high blood pressure BMI less than or equal to 35 kg/m^2 Does not have a large neck Non-male patient STOP-Bang Score: 1 [id number] Score: Age: >=75 Sex: female CHF history: No Hypertension history: No Stroke/TIA/thromboembolism history: No Vascular disease history: No Diabetes history: Yes [id number] Score: 4 ARISCAT Score: Age: 51-80 Preoperative SpO2: >=96% Respiratory infection in the last month: No Preoperative anemia: Yes Surgical incision: peripheral Duration of surgery: <2 hrs Emergency procedure: No ARISCAT Score: 14 ANESTHESIA FINDINGS: Intubation History: No prior intubation Significant Anesthesia Considerations: none Airway History: No prior intubation I - PHYSICAL EVALUATION AIRWAY Patient intubated: No. Tracheostomy tube not present Mallampati: II. TM distance: >3 FB. Neck ROM: full ROM without neurological symptoms. Mouth opening: adequate. Short neck: no. Thick neck: no Jackson present: no Lip Bite Test: II Microretrognathia/Micronagthia/Re cessed Chin: No DENTAL Dental findings: teeth intact. II - ANESTHESIA PLAN Anesthetic plan additional comments: *PACC/TCI - anesthesia choice. Beta Jo Monitoring Plan Post Procedure Analgesic Plan Prepared for surgery: This patient is optimally prepared for surgery.- Patient to be done under [place] CONSULTS: Patient does not require consults for optimization at this time. The Following Tests/Procedures Have Been Initiated: Labs not indicated per PACC protocol, EKG not indicated per PACC protocol Planned Anesthetic: Per anesthesia choice Subjective CHIEF COMPLAINT: Bilateral change of vision HPI: 73 year old female with bilateral change of vision that has been ongoing > 1 year. Patient states that she has blurred Vision,decreased vision,difficulty with reading,difficulty with watching television,dryness,glare,halos . REVIEW OF SYSTEMS: PAIN ASSESSMENT: General: No weight loss, malaise or fevers. 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 No history of respiratory/pulmonary symptoms or problems. Cardiovascular: No history of HTN requiring medication, no history of angina, CHF, LA, cardiac surgery or stents. Denies rest pain, gangrene or revascularization/amputation for PVD. No history of cardiovascular symptoms or problems. Positive for HLD GI: No history of GI symptoms or problems. No history of esophageal varices, recent ascites, or ETOH greater than 2 drinks per day. 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 : Denies, No LMP recorded. Patient is postmenopausal. Endocrine: Diabetes Mellitus on oral agent, Hypothyroidism Hematology: Anemia due to Vitamin B12 deficiency Oncology: No history of CA metastasis, chemo within 30 days, or radiotherapy within 90 days. Has not lost 10% of body wt in 6 months. No history of oncological symptoms or problems. Psych: Anxiety Musculoskeletal: Negative for joint pain or swelling, back pain or muscle pain. Skin: Negative for lesions, rash and itching. 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 Anxiety Hypothyroidism (Acquired) Mild Cognitive Impairment of Uncertain Or Unknown Etiology Hyperlipidemia Psychogenic Nonepileptic Seizure Temporal Lobe Epilepsy (Hcc) Type 2 Diabetes Mellitus (Hcc) Vitamin B12 Deficiency Covid Immunization Dates Overdue - Covid-19 Vaccine () Overdue since 01/06/2024 06/02/2020 Imm Admin: COVID-19 original vaccine, age 12+ yr, monovalent ([employer] - PURPLE TOP) 05/12/2020 Imm Admin: COVID-19 original vaccine, age 12+ yr, monovalent ([employer] - PURPLE TOP) PAST MEDICAL HISTORY Diagnosis Date Diabetes mellitus (HCC) Generalized anxiety disorder 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 Taking Yes acetaminophen (TYLENOL) 500 mg tablet Q6H Taking Yes atorvastatin (LIPITOR) 40 mg tablet TAKE 1 TABLET(40 MG) BY MOUTH IN THE MORNING Taking Yes cholecalciferol (VITAMIN D3) 5,000 unit tab 5,000 Units. Taking Yes cyanocobalamin (VITAMIN B-12) 1,000 mcg tab once daily. Taking Yes cyclobenzaprine (FLEXERIL) 5 mg tablet TAKE 1 TABLET(5 MG) BY MOUTH AT BEDTIME Taking Yes diclofenac (VOLTAREN) 1 % topical gel as directed Externally Taking Yes PREVIDENT 5000 BOOSTER PLUS 1.1 % BRUSH AT BEDTIME- SPIT OUT AND DO NOT RINSE Taking Yes FLUoxetine (PROZAC) 20 mg capsule Take 20 mg by mouth. Taking Yes levothyroxine (SYNTHROID) 75 mcg tablet TAKE 1 TABLET BY MOUTH EVERY DAY IN THE MORNING BEFORE MEALS Taking Yes loratadine (CLARITIN) 10 mg tablet Take 1 tablet by mouth once daily. Taking Yes LORazepam (ATIVAN) 0.5 mg One tablet the night before appointments and one tablet the day of appointments Taking Yes memantine (NAMENDA) 5 mg tablet TAKE 1 TABLET BY MOUTH EVERY MORNING AND 1 TABLET EVERY NIGHT AT BEDTIME Taking Yes metFORMIN (GLUCOPHAGE) 850 mg tablet TAKE 1 TABLET(850 MG) BY MOUTH IN THE MORNING AND IN THE EVENING WITH MEALS Taking Yes naproxen (NAPROSYN) 250 mg tablet TAKE 1 TABLET BY MOUTH TWICE DAILY WITH FOOD OR MILK Taking Yes polyethylene glycol 3350 17 gram packet Take 17 g by mouth. Taking Yes GARLIC Q48H Taking Yes beta-carotene,A,-vits C,E/mins (OCUVITE ORAL) Take by mouth. Taking Yes lamoTRIgine (LAMICTAL) 200 mg tablet Take 200 mg by mouth. Taking Yes ofloxacin (OCUFLOX) 0.3 % ophthalmic solution 1 Drop four times daily. One drop in the OPERATIVE EYE only four times a day starting the day before surgery Taking Yes LORazepam (ATIVAN) 0.5 mg Take 1 tablet by mouth every 8 hours for 2 days. Patient should start on February 06, 2024. No medication comments found. ALLERGIES No Known Allergies Objective PHYSICAL EXAM: VITALS: BP 157/72 Pulse 75 Temp 98.5 Resp 16 Ht 5' 5 (1.65m) Wt 171 lb 15.3 oz (78.0kg) SpO2 96% BMI 28.62 kg/(m^2). General: Alert and oriented, No acute distress Skin: Normal color, no rash, no lesions. Cardiovascular: Normal S1 & S2, no rubs, murmurs or gallops. No JVD. Pulse regular. Lungs: Normal breath sounds, no wheezes or crackles. Abdomen: Soft, non-tender, no rigidity., Positive bowel sounds Extremities: No deformity, no edema or tenderness, no joint swelling or clubbing. Neurological: Abnormal gait walks with walker Pulses: Carotid and radial pulses normal +2. Diagnostic tests reviewed for today's visit: Lab Value Units Date High Low ABORHD No results within date range. ABSCREEN No results within date range. No results found for: HBA1C No new labs or tests Instructions Given to Patient: Instructions located in the after visit summary. Patient given verbal and written preop instructions and voices comprehension and compliance. SIGNATURE: Zacarias Ray APRN.CNP PATIENT NAME: Eva Mercado DATE: 01/29/2024 TIME: 12:27 PM documented in this encounter [facility] 01-16-2024 Telephone encounter Note Faxed medical clearance request to Dr. Mariann Sky [facility] Work Phone: 01-16-2024 Miscellaneous Notes Faxed medical clearance request to Dr. Mariann Sky documented in this encounter [facility] 01-16-2024 History of Present illness Narrative Patient was in today to discuss hearing aid options after an audiogram appointment yesterday. Patient has medicaid and is eligible for a hearing aid for her right ear. Patient was presented with styles. Patient prefers a half shell ITE heairng aid that is rechargeable. Explained the current issue with PA with medicaid. Patient was scheduled for an ear impression for late February. Patient is hopeful that the PA could be obtained after that appointment. documented in this encounter [facility] 01-15-2024 History of Present illness Narrative History: Patient was seen today for an audiological evaluation and to discuss hearing aids tomorrow with Ruth Ann. Patient notices difficulties hearing at times and wanted an evaluation. She denies symptoms of ear pain. Patient does have bilateral tinnitus. She reported having dizziness, secondary to Epilepsy. History is negative to noise exposure. Otoscopic Exam: Revealed partially occlusive cerumen, bilaterally, which was removed prior to testing, without incident. Pure Tone Audiometry Audio indicated a mild sloping to severe sensorineural hearing loss 250-6000 Hz, rising to a moderately-severe hearing loss at 8000 Hz in the right ear. The left ear exhibited a mild sensorineural hearing loss 250-500 Hz, rising to normal hearing 1725-8105 Hz, sloping to a moderate to moderately-severe sensorineural hearing loss 2124-9672 Hz. Today's audio is consistent with previous results recorded 09-14-2021. Speech Audiometry Right SRT = 30 dB and word discrimination score at 60 dBHL = 88% Left SRT = 30 dB and word discrimination score at 65 dBHL = 100% Tympanometry Normal Type A tympanogram recorded in the left ear and a Type As (reduced compliance) tympanogram recorded in the right ear Impressions: Discussed results with the patient. Ruth Ann is scheduled to discuss hearing aid options with patient tomorrow documented in this encounter [facility] 01-09-2024 Instructions Mariann Lynn DO - 01/09/2024 10:15 AM EDT She has been eating more sweets lately. I stressed that she needs reduce this as her A1c has increased >1%. I advised her that it is possible her cataract surgery will be pushed back due to this, but that will be up to her Community Life Director. I do not want to add another medication at this time as I feel if she curbs her CHO intake her control will improve. We did not make any medication changes today. Will follow up in ~6 months. Will send lab order when closer to next appt to have done documented in this encounter [facility] 01-03-2024 Note HNO ID: [id number] Author: VICTORINO REMY MD Service: ? Author Type: Physician Type: Progress Notes Filed: 01/03/2024 13:54 Note Text: ASSESSMENT/PLAN: Patient educated with patient and her caregiver on all findings: 1. Combined forms of age-related cataract of right eye - ICD9: 366.19, ICD10: H25.811 (primary diagnosis) 2. Combined forms of age-related cataract of left eye - ICD9: 366.19, ICD10: H25.812 +seizure disorder with significant shaking of her head and body - clapping helps alleviate them CORNEAL TOPOGRAPHY: Less than one diopter, regular, both eyes Mac OCT: Normal foveal contour, no Subretinal fluid, no intraretinal fluid in both eyes Cataract Presurgical Documentation Cataract: Both eyes (OU) Current Visual Acuity Right Eye Distance CC 20/100 Left Eye Distance CC 20/40 Best Corrected Vision Right Eye 20/70+1 Best Corrected Vision Left Eye 20/50-2+2 Glare Testing: Right Eye High defer due to vision Left Eye High 20/200 Visual Function: Eva Mercado states that the decline in vision from the cataract impedes her abilities as listed in the HPI, as well as other activities of daily living. Eva Mercado has confirmed that she is no longer able to function adequately on a day-to-day basis because of her current visual condition. Further, it is my medical opinion that the cataract is the primary cause, or at least a significantly contributory cause of her visual dysfunction. With uncomplicated cataract surgery and lens implantation, it is my expectation that her visual function and quality of life will improve, significantly. The risks, benefits, alternatives, personnel and complications of cataract surgery with lens implantation were discussed with Eva Mercado in detail. she appeared to understand and asked that I proceed with plans for surgery. Offered Phacoemulsification cataract extraction with insertion of intraocular lens by Dr. Remy OD / OS. Patient wishes to proceed with surgery. All questions were answered. A-scan to be performed pre-operatively. Referred by Dr. Whitfield, Thank you for your kind referral! Allergies: see list - Aim: [place] OU. Patient understands the need for glasses for all near and intermediate vision including reading and computer work. - Anesthesia: General. Patient states she takes Ativan the night before and 1-2 the morning of procedure. Discussed that for her to have safe cataract surgery by me, she would need to be cleared to have general anesthesia at the [facility]. - Diabetes Mellitus . - Blood thinner use No - Flomax/alpha-jo? No - Able to lie supine Yes; tape forehead please. - Wants versed Yes - Happy for prayer Yes - Warned of IOL-induced photopsias Yes - Advised there is no guarantee of freedom from glasses Yes; -Discussed possible increased sensitivity and starbursting when exposed to flickering lights such as LED and fluorescent lights after cataract surgery, which usually decreases with time. - Discussed toric Intraocular lens not covered by insurance Yes $1400 per eye - Toric candidate: Offered Toric lens if patient qualifies by Ultrasound measurements. Without the toric IOL, patient was told that they will still need to wear glasses to correct residual astigmatism at all distances. Even with toric IOL, we cannot guarantee no residual astigmatism. - Contact lens use No - e-scribed eye drops -Initiate eyelid scrubs twice daily for one week prior to cataract surgery. - Literature regarding cataract and cataract extraction by phacoemulsification offered. - Co-manage with Dr. Whitfield Pt lives in assisted living facility - discussed need for eye drops following cataract surgery. Nurse/aid will be able to help with drop instillation. 3. Type 2 diabetes mellitus without retinopathy (HCC) - ICD9: 250.00, ICD10: E11.9 -No sign of diabetic retinopathy or clinically significant macular edema in either eye -Controlled on current medications. -Keep blood sugar in low 100s, BP and Cholesterol controlled. -Exercise. -Importance of regular dilated eye exams was stressed. 4. Other optic atrophy, bilateral - ICD9: 377.10, ICD10: H47.293 Mild pallor OU. +seizure disorder. +premature and poor degree clerk nutrition. Also h/o spinal meningitis as a child, per patient. Stable from Dr. Whitfield' notes. 5. Insufficiency of tear film of both eyes - ICD9: 375.15, ICD10: H04.123 Unable to instill eye drops due to seizure disorder. Warm compresses prn. 6. 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 Seizure disorder, brought out of these by her aid clapping; It has taken since July to get appt here; h/o spinal meningitis at age2; grand mal sz are under control but has Psychogenic nonepileptic seizures; offered cataract Surgery OD/OS if cleared for general anesthesia, plan co-management with Dr. Whitfield. Copy of today's visit note (more content not included)... [facility] 01-03-2024 History of Present illness Narrative ASSESSMENT/PLAN: Patient educated with patient and her caregiver on all findings: 1. Combined forms of age-related cataract of right eye - ICD9: 366.19, ICD10: H25.811 (primary diagnosis) 2. Combined forms of age-related cataract of left eye - ICD9: 366.19, ICD10: H25.812 +seizure disorder with significant shaking of her head and body - clapping helps alleviate them CORNEAL TOPOGRAPHY: Less than one diopter, regular, both eyes Mac OCT: Normal foveal contour, no Subretinal fluid, no intraretinal fluid in both eyes Cataract Presurgical Documentation Cataract: Both eyes (OU) Current Visual Acuity Right Eye Distance CC 20/100 Left Eye Distance CC 20/40 Best Corrected Vision Right Eye 20/70+1 Best Corrected Vision Left Eye 20/50-2+2 Glare Testing: Right Eye High defer due to vision Left Eye High 20/200 Visual Function: Eva Mercado states that the decline in vision from the cataract impedes her abilities as listed in the HPI, as well as other activities of daily living. Eva Mercado has confirmed that she is no longer able to function adequately on a day-to-day basis because of her current visual condition. Further, it is my medical opinion that the cataract is the primary cause, or at least a significantly contributory cause of her visual dysfunction. With uncomplicated cataract surgery and lens implantation, it is my expectation that her visual function and quality of life will improve, significantly. The risks, benefits, alternatives, personnel and complications of cataract surgery with lens implantation were discussed with Eva Mercado in detail. she appeared to understand and asked that I proceed with plans for surgery. Offered Phacoemulsification cataract extraction with insertion of intraocular lens by Dr. Remy OD / OS. Patient wishes to proceed with surgery. All questions were answered. A-scan to be performed pre-operatively. Referred by Dr. Whitfield, Thank you for your kind referral! Allergies: see list - Aim: [place] OU. Patient understands the need for glasses for all near and intermediate vision including reading and computer work. - Anesthesia: General. Patient states she takes Ativan the night before and 1-2 the morning of procedure. Discussed that for her to have safe cataract surgery by me, she would need to be cleared to have general anesthesia at the [facility]. - Diabetes Mellitus . - Blood thinner use No - Flomax/alpha-jo? No - Able to lie supine Yes; tape forehead please. - Wants versed Yes - Happy for prayer Yes - Warned of IOL-induced photopsias Yes - Advised there is no guarantee of freedom from glasses Yes; -Discussed possible increased sensitivity and starbursting when exposed to flickering lights such as LED and fluorescent lights after cataract surgery, which usually decreases with time. - Discussed toric Intraocular lens not covered by insurance Yes $1400 per eye - Toric candidate: Offered Toric lens if patient qualifies by Ultrasound measurements. Without the toric IOL, patient was told that they will still need to wear glasses to correct residual astigmatism at all distances. Even with toric IOL, we cannot guarantee no residual astigmatism. - Contact lens use No - e-scribed eye drops -Initiate eyelid scrubs twice daily for one week prior to cataract surgery. - Literature regarding cataract and cataract extraction by phacoemulsification offered. - Co-manage with Dr. Whitfield Pt lives in assisted living facility - discussed need for eye drops following cataract surgery. Nurse/aid will be able to help with drop instillation. 3. Type 2 diabetes mellitus without retinopathy (HCC) - ICD9: 250.00, ICD10: E11.9 -No sign of diabetic retinopathy or clinically significant macular edema in either eye -Controlled on current medications. -Keep blood sugar in low 100s, BP and Cholesterol controlled. -Exercise. -Importance of regular dilated eye exams was stressed. 4. Other optic atrophy, bilateral - ICD9: 377.10, ICD10: H47.293 Mild pallor OU. +seizure disorder. +premature and poor degree clerk nutrition. Also h/o spinal meningitis as a child, per patient. Stable from Dr. Whitfield' notes. 5. Insufficiency of tear film of both eyes - ICD9: 375.15, ICD10: H04.123 Unable to instill eye drops due to seizure disorder. Warm compresses prn. 6. 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 Seizure disorder, brought out of these by her aid clapping; It has taken since July to get appt here; h/o spinal meningitis at age2; grand mal sz are under control but has Psychogenic nonepileptic seizures; offered cataract Surgery OD/OS if cleared for general anesthesia, plan co-management with Dr. Whitfield. Copy of today's visit note was sent to Dr. Whitfield. Return for PAT, ultrasound, Intraocular lens calculations, and surgery. Victorino Remy MD The documentation for this note was completed by RON Ramos acting as a scribe for, and in the presence of, Dr. Victorino Remy M.D. 01/03/24 The documentation recorded by the scribe accurately reflects the service I personally performed and the decisions made by me. I have confirmed and edited as necessary the relevant HPI, ophthalmic history, ROS, and the neuro exam findings as obtained by others. I have seen and examined Eva Mercado. I have discussed the case and the management of this patient's care with the Resident/Fellow, if applicable. I also have reviewed and agree with the assessment and plan as stated above and agree with all of its relevant components. Victorino Remy MD 01/03/24 documented in this encounter [facility] 01-03-2024 Note Date of Procedure 01/03/2024. Cardiopulmonary Technologist Chief Information Professional Security Officer: ethan. Interpretation Right Eye Normal foveal contour. Left Eye Normal foveal contour. Interval Change Right Eye Initial. Left Eye Initial. [facility] 01-03-2024 Note Date of Procedure 01/03/2024. Cardiopulmonary Technologist Chief Information Professional Security Officer: ethan. Difficult due to patient shaking (having seizures). Astigmatism Right Eye Regular. Left Eye Regular. Interval Change Right Eye Intial . Left Eye Intial . 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 Ptosis of both eyelids Unspecified ptosis of eyelid Combined forms of age-related cataract of right eye Other and combined forms of senile cataract Combined forms of age-related cataract of left eye Other and combined forms of senile cataract [facility] Pre-op evaluation- Primary Preoperative examination, unspecified Psychogenic nonepileptic seizure Temporal lobe epilepsy (HCC) Localization-related (focal) (partial) epilepsy and epileptic syndromes with complex partial seizures, without mention of intractable epilepsy Hyperlipidemia, unspecified hyperlipidemia type Vitamin B12 deficiency Other B-complex deficiencies Type 2 diabetes mellitus without complication, without long-term current use of insulin (HCC) Hypothyroidism (acquired) Unspecified hypothyroidism Anxiety Anxiety state, unspecified Mild cognitive impairment of uncertain or unknown etiology Combined forms of age-related cataract of right eye Other and combined forms of senile cataract Combined forms of age-related cataract of left eye Other and combined forms of senile cataract * Assessment & Plan Note - Zacarias Ray APRN.CNP - 01/28/2024 9:08 AM EDTAssociated Problem(s): Mild cognitive impairment of uncertain or unknown etiology Assessment: symptoms stable on [place] * Assessment & Plan Note - Zacarias Ray APRN.CNP - 01/28/2024 9:08 AM EDTAssociated Problem(s): Anxiety Assessment: stable on medication Denies any suicidal ideation * Assessment & Plan Note - Zacarias Ray APRN.CNP - 01/28/2024 9:07 AM EDTAssociated Problem(s): Hypothyroidism (acquired) Assessment: stable on mediation * Assessment & Plan Note - Zacarias Ray APRN.CNP - 01/28/2024 9:07 AM EDTAssociated Problem(s): Type 2 diabetes mellitus (HCC) Assessment: stable on oral medication * Assessment & Plan Note - Zacarias Ray APRN.CNP - 01/28/2024 9:07 AM EDTAssociated Problem(s): Vitamin B12 deficiency Assessment: stable on B12 * Assessment & Plan Note - Zacarias Ray APRN.CNP - 01/28/2024 9:06 AM EDTAssociated Problem(s): Hyperlipidemia Assessment: stable on medication * Assessment & Plan Note - Zacarias Ray APRN.CNP - 01/28/2024 9:06 AM EDTAssociated Problem(s): Temporal lobe epilepsy (HCC) Assessment: Following with Neurology 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 Her epileptic seizures are very well controlled on lamotrigine. Per family no epileptic events in over 2 years. PLAN - Continue lamotrigine 200 mg twice daily * Assessment & Plan Note - Zacarais Ray APRN.CNP - 01/28/2024 9:05 AM EDTAssociated Problem(s): Psychogenic nonepileptic seizure Assessment:-Based on recommendation of Neurologist, when she has one of these episodes, if someone claps loudly the activity terminates immediately Frequent psychogenic nonepileptic seizures. Typically gets heavy breathing and upper body shaking but she is able to speak throughout them and has no postictal period. When someone claps they stop abruptly. Usually has at least one during physical examination and this was the case today. - PLAN - She is on lamotrigine 200mg BID - Continue fluoxetine 20 mg daily - Consider cognitive behavioral therapy and referral to psych but both the family and the patient decline this today as they feel she is at her baseline - Continue memantine 5 mg twice daily - Could consider seroquel for the hallucinations though this is deferred today per patient and family request Last Assessment & Plan: She had some increased episodes during her appt today. Admits it is due some increased stress from missing her nap to come to appt and having extra person see her (for MW portion). Episodes terminate with clap [facility] Pre-op evaluation- Primary Preoperative examination, unspecified Psychogenic nonepileptic seizure Temporal lobe epilepsy (HCC) Localization-related (focal) (partial) epilepsy and epileptic syndromes with complex partial seizures, without mention of intractable epilepsy Hyperlipidemia, unspecified hyperlipidemia type Vitamin B12 deficiency Other B-complex deficiencies Type 2 diabetes mellitus without complication, without long-term current use of insulin (HCC) Hypothyroidism (acquired) Unspecified hypothyroidism Anxiety Anxiety state, unspecified Mild cognitive impairment of uncertain or unknown etiology Combined forms of age-related cataract of right eye Other and combined forms of senile cataract Combined forms of age-related cataract of left eye Other and combined forms of senile cataract Combined forms of age-related cataract of right eye Other and combined forms of senile cataract Combined forms of age-related cataract of left eye Other and combined forms of senile cataract [facility] Diagnosis Closed compression fracture of L4 lumbar vertebra with routine healing, subsequent encounter- Primary Hypothyroidism (acquired) (CMS/HCC) Unspecified hypothyroidism Mixed hyperlipidemia (CMS/HCC) Mixed hyperlipidemia Type 2 diabetes mellitus with peripheral neuropathy (CMS/HCC) Psychogenic nonepileptic seizure (CMS/HCC) Anxiety- Primary Anxiety state, unspecified Type 2 diabetes mellitus with peripheral neuropathy (CMS/HCC) Muscle spasms of neck Hypothyroidism (acquired) (CMS/HCC) Unspecified hypothyroidism Mixed hyperlipidemia (CMS/HCC) Mixed hyperlipidemia MCI (mild cognitive impairment) Mild cognitive impairment, so stated Psychogenic nonepileptic seizure (CMS/HCC) Temporal lobe epilepsy (CMS/HCC) Localization-related (focal) (partial) epilepsy and epileptic syndromes with complex partial seizures, without mention of intractable epilepsy Type 2 diabetes mellitus with peripheral neuropathy (CMS/HCC)- Primary Pneumococcal vaccination declined by patient Chronic gout of multiple sites, unspecified cause Arthritis Unspecified arthropathy, site unspecified Vitamin B12 deficiency Other B-complex deficiencies Vitamin D deficiency Chronic allergic rhinitis Postmenopausal Asymptomatic postmenopausal status (age-related) (natural) Osteoporosis screening Special screening for osteoporosis Hypothyroidism (acquired) (CMS/HCC) Unspecified hypothyroidism Mixed hyperlipidemia (CMS/HCC) Mixed hyperlipidemia Medication monitoring encounter Encounter for therapeutic drug monitoring Medicare annual wellness visit, subsequent ACP (advance care planning) Other specified counseling Temporal lobe epilepsy (CMS/HCC) Localization-related (focal) (partial) epilepsy and epileptic syndromes with complex partial seizures, without mention of intractable epilepsy MCI (mild cognitive impairment) Mild cognitive impairment, so stated Psychogenic nonepileptic seizure (CMS/HCC) Type 2 diabetes mellitus with peripheral neuropathy (CMS/HCC)- Primary Anxiety Anxiety state, unspecified Hypothyroidism (acquired) (CMS/HCC) Unspecified hypothyroidism Mixed hyperlipidemia (CMS/HCC) Mixed hyperlipidemia Temporal lobe epilepsy (CMS/HCC) Localization-related (focal) (partial) epilepsy and epileptic syndromes with complex partial seizures, without mention of intractable epilepsy Psychogenic nonepileptic seizure (CMS/HCC) Cortical age-related cataract of both eyes Sensorineural hearing loss, bilateral- Primary [facility] Diagnosis Sensorineural hearing loss, bilateral- Primary Tinnitus, bilateral Unspecified tinnitus [facility] Diagnosis Sensorineural hearing loss, bilateral- Primary [facility] Diagnosis Type 2 diabetes mellitus with peripheral neuropathy (CMS/HCC)- Primary Anxiety Anxiety state, unspecified Hypothyroidism (acquired) (CMS/HCC) Unspecified hypothyroidism Mixed hyperlipidemia (CMS/HCC) Mixed hyperlipidemia Temporal lobe epilepsy (CMS/HCC) Localization-related (focal) (partial) epilepsy and epileptic syndromes with complex partial seizures, without mention of intractable epilepsy Psychogenic nonepileptic seizure (CMS/HCC) Cortical age-related cataract of both eyes [facility] Diagnosis Closed compression fracture of L4 lumbar vertebra with routine healing, subsequent encounter- Primary Hypothyroidism (acquired) (CMS/HCC) Unspecified hypothyroidism Mixed hyperlipidemia (CMS/HCC) Mixed hyperlipidemia Type 2 diabetes mellitus with peripheral neuropathy (CMS/HCC) Psychogenic nonepileptic seizure (CMS/HCC) Anxiety- Primary Anxiety state, unspecified Type 2 diabetes mellitus with peripheral neuropathy (CMS/HCC) Muscle spasms of neck Hypothyroidism (acquired) (CMS/HCC) Unspecified hypothyroidism Mixed hyperlipidemia (CMS/HCC) Mixed hyperlipidemia MCI (mild cognitive impairment) Mild cognitive impairment, so stated Psychogenic nonepileptic seizure (CMS/HCC) Temporal lobe epilepsy (CMS/HCC) Localization-related (focal) (partial) epilepsy and epileptic syndromes with complex partial seizures, without mention of intractable epilepsy Type 2 diabetes mellitus with peripheral neuropathy (CMS/HCC)- Primary Pneumococcal vaccination declined by patient Chronic gout of multiple sites, unspecified cause Arthritis Unspecified arthropathy, site unspecified Vitamin B12 deficiency Other B-complex deficiencies Vitamin D deficiency Chronic allergic rhinitis Postmenopausal Asymptomatic postmenopausal status (age-related) (natural) Osteoporosis screening Special screening for osteoporosis Hypothyroidism (acquired) (CMS/HCC) Unspecified hypothyroidism Mixed hyperlipidemia (CMS/HCC) Mixed hyperlipidemia Medication monitoring encounter Encounter for therapeutic drug monitoring Medicare annual wellness visit, subsequent ACP (advance care planning) Other specified counseling Temporal lobe epilepsy (CMS/HCC) Localization-related (focal) (partial) epilepsy and epileptic syndromes with complex partial seizures, without mention of intractable epilepsy MCI (mild cognitive impairment) Mild cognitive impairment, so stated Psychogenic nonepileptic seizure (CMS/HCC) Type 2 diabetes mellitus with peripheral neuropathy (CMS/HCC)- Primary Anxiety Anxiety state, unspecified Hypothyroidism (acquired) (CMS/HCC) Unspecified hypothyroidism Mixed hyperlipidemia (CMS/HCC) Mixed hyperlipidemia Temporal lobe epilepsy (CMS/HCC) Localization-related (focal) (partial) epilepsy and epileptic syndromes with complex partial seizures, without mention of intractable epilepsy Psychogenic nonepileptic seizure (CMS/HCC) Cortical age-related cataract of both eyes Hypothyroidism (acquired) (CMS/HCC)- Primary Unspecified hypothyroidism Mixed hyperlipidemia (CMS/HCC) Mixed hyperlipidemia Type 2 diabetes mellitus with peripheral neuropathy (CMS/HCC) Idiopathic chronic gout of multiple sites without tophus Vitamin D deficiency Vitamin B12 deficiency Other B-complex deficiencies Medication monitoring encounter Encounter for therapeutic drug monitoring [facility] Additional Instructions If your symptoms return/worsen or you develop any further concerns or symptoms please see your doctor or return to the emergency department immediately.[facility] Work Phone: Summary Purpose Family History Relationship Condition Age at Onset Recorded Date/T brendan brother Alcoholism Unknown Unknown father Heart disease Unknown Alcoholism Unknown family member Unknown mother Unknown Heart disease Unknown Advance Directives Advance Directive Response Recorded Date/ Time Advance Directives Yes November 01 3:35pm Advance Directive Response Recorded Date/ Time Advance Directives Yes November 01 4:35pm Documents on File Type Date Recorded Patient Angio Technologist Expl anation Advance Directive(s) 01/29/2024 12:15 PM Advance Directive(s) 01/29/2024 12:10 PM Documents on File Type Date Recorded Patient Angio Technologist Expl anation Power of Quality System Manager 01/15/2024 2:03 PM 2023 POWER OF MAXILLOFACIAL SURGEON Advance Directives and Living Will 11/12/2019 2019-11-12 [facility] Documents on File Type Date Recorded Patient Angio Technologist Expl anation Advance Directives and Livin g Will 11/12/2019 2019-11-12 [facility] Chief Complaint and Reason for Visit Chief Complaint E11.42 E78.2 E03.9 M [id number] Z51.81 Chief Complaint Z12.[address] hebert, abnormal xray Chief Complaint Screening Z78.0 Z13.820 Additional Source Comments INFORMATION SOURCE (unrecogn ized section and content) DATE CREATED AUTHOR 12/11/2020 [facility] DATE CREATED AUTHOR AUTHOR'S ORGANIZ ATION 11/28/2023 [facility] DATE CREATED AUTHOR AUTHOR'S ORGANIZ ATION 02/22/2024 [facility] DATE CREATED AUTHOR AUTHOR'S ORGANIZ ATION 03/05/2024 [facility] EPIC Care Teams (unrecognized sec tion and content) Team Status: Active Member Role Status Dates Mariann Lynn , DO Primary Care Provider Active Team Status: Inactive Member Role Status Dates Mariann Lynn , DO Primary Care Provider, Attend ing Provider Active Team Status: Inactive Member Role Status Dates Mariann Lynn , DO Primary Care Provider Active Guille Ruiz , DO Attending Provider Active Team Status: Inactive Member Role Status Dates Mariann Lynn , DO Primary Care Provider Active Billy Bang , DO Emergency Provider Active Team Status: Inactive Member Role Status Dates Mariann Lynn , DO Primary Care Provider Active Start: November 22, 2023 End: November 22, 2023 Referral Self Attending Provider Active Start: Merlin santos 2023 End: November 22, 2023 Team Status: Inactive Member Role Status Dates Mariann Lynn , Primary Care Pr ovider, Attending Provider Active Start: November 22, 2023 End: November 22, 2023 Child Care Lead Teacher Relationship Specialty Start Date End Date Mariann Lynn DO [address] [place] [address] PCP - ACO Reach 09/28/22 Mariann Lynn DO [address] [place] [address] PCP - General Internal Medicine 11/13/22 Sameer Loera DO [address] [place] [address] Consulting Physician Neurology 07/10/23 Sebastian Hicks DPM [address] [place] [address] Consulting Physician Podiatry 07/10/23 Teresa Whitfield Consulting Physician Ophthalmology 07/10/23 Child Care Lead Teacher Relationship Specialty Start Date End Date Mariann Lynn DO [address] [place] [address] PCP - ACO Reach 09/28/22 Mariann Lynn DO [address] [place] [address] PCP - General Internal Medicine 11/13/22 Sameer Loera DO [address] [place] [address] Consulting Physician Neurology 07/10/23 Sebastian Hicks DPM [address] [place] [address] Consulting Physician Podiatry 07/10/23 Teresa Whitfield Consulting Physician Ophthalmology 07/10/23 Child Care Lead Teacher Relationship Specialty Start Date End Date Mariann Lynn DO [address] [place] [address] PCP - ACO Reach 09/28/22 Mariann Lynn DO [address] [place] [address] PCP - General Internal Medicine 11/13/22 Sameer Loera DO [address] [place] [address] Consulting Physician Neurology 07/10/23 Sebastian Hicks DPM [address] [place] [address] Consulting Physician Podiatry 07/10/23 Teresa Whitfield Consulting Physician Ophthalmology 07/10/23 Child Care Lead Teacher Relationship Specialty Start Date End Date Mariann Lynn DO [address] [place] [address] PCP - ACO Reach 09/28/22 Mariann Lynn DO [address] [place] [address] PCP - General Internal Medicine 11/13/22 Sameer Loera DO [address] [place] [address] Consulting Physician Neurology 07/10/23 Sebastian Hicks DPM [address] [place] [address] Consulting Physician Podiatry 07/10/23 Teresa Whitfield Consulting Physician Ophthalmology 07/10/23 Child Care Lead Teacher Relationship Specialty Start Date End Date Mariann Lynn DO [address] [place] [address] PCP - ACO Reach 09/28/22 Mariann Lynn DO [address] [place] [address] PCP - General Internal Medicine 11/13/22 Sameer Loera DO [address] [place] [address] Consulting Physician Neurology 07/10/23 Sebastian Hicks DPM [address] [place] [address] Consulting Physician Podiatry 07/10/23 Teresa Whitfield Consulting Physician Ophthalmology 07/10/23 Child Care Lead Teacher Relationship Specialty Start Date End Date Mariann Lynn DO [address] [place] [address] PCP - ACO Reach 09/28/22 Mariann Lynn DO [address] [place] [address] PCP - General Internal Medicine 11/13/22 Sameer Loera DO [address] [place] [address] Consulting Physician Neurology 07/10/23 Sebastian Hicks DPM [address] [place] [address] Consulting Physician Podiatry 07/10/23 Teresa Whitfield Consulting Physician Ophthalmology 07/10/23 Child Care Lead Teacher Relationship Specialty Start Date End Date Mariann Lynn DO [address] [place] [address] PCP - ACO Reach 09/28/22 Mariann Lynn DO [address] [place] [address] PCP - General Internal Medicine 11/13/22 Sameer Loera DO [address] [place] [address] Consulting Physician Neurology 07/10/23 Sebastian Hicks DPM [address] [place] [address] Consulting Physician Podiatry 07/10/23 Teresa Whitfield Consulting Physician Ophthalmology 07/10/23 Child Care Lead Teacher Relationship Specialty Start Date End Date Mariann Lynn DO [address] [place] [address] PCP - ACO Reach 09/28/22 Mariann Lynn DO [address] [place] [address] PCP - General Internal Medicine 11/13/22 Sameer Loera DO [address] [place] [address] Consulting Physician Neurology 07/10/23 Sbeastian Hicks DPM [address] [place] [address] Consulting Physician Podiatry 07/10/23 Teresa Whitfield Consulting Physician Ophthalmology 07/10/23 Child Care Lead Teacher Relationship Specialty Start Date End Date Mariann Lynn DO [address] [place] [address] PCP - ACO Reach 09/28/22 Mariann Lynn DO [address] [place] [address] PCP - General Internal Medicine 11/13/22 Sameer Loera DO [address] [place] [address] Consulting Physician Neurology 07/10/23 Sebastian Hicks DPM [address] [place] [address] Consulting Physician Podiatry 07/10/23 Teresa Whitfield Consulting Physician Ophthalmology 07/10/23 Goals (unrecognized section and content) Goals may be documented in a n alternate sectionGoals may be documented in an alternate sectionGoals may be documented in an alternate sectionGoals may be documented in an alternate sectionGoals may be documented in an alternate section Source Comments (unrecognize d section and content) In the event this informatio n is protected by the Federal Confidentiality of Alcohol and Drug Abuse Patient Records regulations: The Federal rules restrict any use of the information to criminally investigate or prosecute any alcohol or drug abuse patient.[facility] the event this information is protected by the Federal Confidentiality of Alcohol and Drug Abuse Patient Records regulations: The Federal rules restrict any use of the information to criminally investigate or prosecute any alcohol or drug abuse patient.[facility] the event this information is protected by the Federal Confidentiality of Alcohol and Drug Abuse Patient Records regulations: The Federal rules restrict any use of the information to criminally investigate or prosecute any alcohol or drug abuse patient.[facility] Reason for Visit (unrecogniz ed section and content) Reason Comments Cataract Evaluation Diabetes Reason Comments Pre-Op Exam Reason Comments Routine 6 Mo Follow Up Reason Onset Date Comments Mousie lab order 07/08/2024 FOR RECORDS PERTAINING TO PATIENTS WHO ARE OR HAVE BEEN ENROLLED IN A CHEMICAL DEPENDENCY/SUBSTANCEABUSE PROGRAM, SOME INFORMATION MAY BE OMITTED. This clinical summary was aggregated from multiple sources. Caution should be exercised in using it in the provision of clinical care. This summary normalizes information from multiple sources, and as a consequence, information in this document may materially change the coding, format and clinical context of patient data. In addition, data may be omitted in some cases. CLINICAL DECISIONS SHOULD BE BASED ON THE PRIMARY CLINICAL RECORDS. [facility]. provides no warranty or guarantee of the accuracy or completeness of information in this document.
[2024-07-18 08:12] LABS: Basophils Percent Auto 0.5 % (0.2-2.0); Eosinophils Absolute Auto 0.2 10^3/uL (0.0-0.7); Eosinophils Percent Auto 3.6 % (0.9-7.0); Hematocrit 41.7 % (36.0-48.0); Hemoglobin 13.7 g/dL (12.0-16.0); Immature Granulocytes Abs Auto 0.02 10^3/uL (0.00-0.03); Immature Granulocytes Pct Auto 0.3 % (0.0-0.5); Lymphocytes Absolute Auto 1.9 10^3/uL (1.2-3.8); Lymphocytes Percent Auto 32.6 % (20.5-60.0); Mean Corpuscular HGB Conc 32.9 g/dL (29.9-35.2); Mean Corpuscular Hemoglobin 31.1 pg (26.7-34.0); Mean Corpuscular Volume 94.8 fL (81.0-99.0); Mean Platelet Volume 9.6 fL (9.5-13.5); Monocytes Absolute Auto 0.5 10^3/uL (0.3-0.8); Neutrophils Absolute Auto 3.2 10^3/uL (1.4-6.5); Platelet Count 272 10^3/uL (150-450); Red Cell Distribution Width 13.5 % (11.0-15.0); White Blood Count 5.9 10^3/uL (4.0-11.0)
[2024-07-18 10:31] LABS: Estimated Average Glucose 212 mg/dL
[2024-07-18 11:24] LABS: Alanine Aminotransferase 32 U/L (14-59); Albumin Globulin Ratio 1.2; Albumin Level 4.4 g/dL (3.4-5.0); Alkaline Phosphatase 73 U/L (46-116); Aspartate Amino Transferase 15 U/L (15-37); BUN Creatinine Ratio 18.4; Bilirubin Total 0.5 mg/dL (0.2-1.0); Calcium 10.3 mg/dL (8.5-10.1); Carbon Dioxide 27.6 mmol/L (21.0-32.0); Chloride 99 mmol/L (98-107); Chol HDL Ratio 2.5; Cholesterol 170 mg/dL (<=200); Estimated GFR (African America >60 (>=60 mL/min/1.73m^2); Estimated GFR (Non-African Ame 52 (>=60 mL/min/1.73m^2); Globulin 3.7 g/dL; Glucose 181 mg/dL (74-106); HDL Cholesterol 68 mg/dL (40-60); Potassium 4.6 mmol/L (3.5-5.1); Sodium 136 mmol/L (136-145); Total Protein 8.1 g/dL (6.4-8.2); Triglycerides 159 mg/dL (<=150); Uric Acid 4.3 mg/dL (2.6-6.0); VLDL CHOLESTEROL 31.8 mg/dL
[2024-07-18 11:40] LABS: Creatinine Urine Random 131.68 mg/dL (20.00-300.00); Microalbum Creatinine Ratio Ur 53.1 mg/g (0.0-29.9)
[2024-07-18 12:00] LABS: Free T4 1.15 ng/dL (0.76-1.46)
[2024-07-19 04:07] LABS: Vitamin B12 >2000 pg/mL (232-1245)
== END 2024-07-18 07:37 | disposition home or self-care (01) ==
LOC: LAB 07:40
PROVIDERS: Visit Provider Internal Medicine
DX: E03.9 Hypothyroidism, unspecified (principal); Z51.81 Encounter for therapeutic drug level monitoring; E78.2 Mixed hyperlipidemia; E11.42 Type 2 diabetes mellitus with diabetic polyneuropathy; E55.9 Vitamin D deficiency, unspecified; E53.8 Deficiency of other specified B group vitamins; M1A.09X0 Idiopathic chronic gout, multiple sites, without tophus (tophi)
CPT/HCPCS: 36415; 80053; 80061; 82043; 82306; 82570; 82607; 83036; 84439; 84443; 84550; 85025

== ENCOUNTER 2024-10-19 18:41 | Emergency (ER) | payer MEDICARE, OTHER, MEDICAID, SELFPAY ==
[2024-10-19 18:47] VITALS: BP 180/80; PULSE 91; TEMP 36.7; BMI 27.4
--- OUTSIDE RECORDS SUMMARY | 2024-10-19 18:50 | XMS_ITS | CCD ---
Author Organization [facility] Care Team Providers Care Electrocardiograph Repairer Name Role Phone DR HAYDE BERGER Admitting Unavailable DR HAYDE BERGER Attending Unavailable MARIANN IYER Primary Care Unavailable DR HAYDE BERGER Consulting Unavailable GIGI CHATTERJEE Consulting Unavailable DO Mariann Lynn Primary Care Provider DO Mariann Lynn Attending Provider DO Mariann Lynn Primary Care Provider DO Guille Ruiz Attending Provider DO Billy Bang Emergency Provider [phone] DO Mariann Lynn Primary Care Provider Self, Referral Attending Provider Unavailable DO Mariann Lynn Attending Provider Mariann Lynn Primary Care Unavailable Billy Bang Admitting Unavailable Billy Bang Attending Unavailable Marinan Lynn Admitting Unavailable Mariann Lynn Primary Care [...] Primary Care Provider Sameer Loera DO Unavailable Sebastian Hicks DPM Unavailable Sameer Loera DO Unavailable MARIANN LYNN Attending UnavailDAO Navarrete Attending Unavailable SEBASTIAN HICKS Attending Unavailable GUILLE RUIZ Attending Unavailable MARIANN LYNN Attending UnavailMARIANN Gracia Referring Unavailab ESTELA Holman Attending Unavailable ESTELA DELGADO Attending Unavailable Medications [...] lecalciferol 600-200 MG-UNIT tablet every 12 (twelve) hours Active cholecalciferol 0.125 mg oral capsule (20 [...] Start: 11-26-2017 take 1 tablet by neli once daily Cholecalciferol (Vitamin D3) (Vitamin D3) [...] 20 mg/ml oral solution (5 sources) Uncompetitive D-fvrkgs-G-asparta te Receptor Antagonist, Sigma-1 Agonist Start: 07-07-2021 take 1 mL by mouth every four hours Dextromethorphan-Gu aifenesin (Guaifenesin Dm) 10-100 mg/5 mL Syrup Active 5 ML PO Q4H July 07, 2021 1:00am diclofenac sodium 0.01 mg/mg topical gel (20 sources) Nonsteroidal Anti-inflammatory Drug diclofenac sodium 1 % gel Active Docusate (1 source) DOCUSATE SODIUM ORAL [...] 200 MG tablet Indications: Psychogenic nonepileptic seizure Take 1 tablet (200 mg) by mouth in the morning and 1 tablet (200 mg) before bedtime. 180 tablet 3 05/05/2024 Active Start: 07-11-2023 take 1 tablet by neli twice daily lamoTRIgine (LaMICtal) 200 MG tablet Indications: Psychogenic nonepileptic seizure (CMS/HCC) TAKE 1 TABLET BY MOUTH TWICE DAILY 180 tablet 3 07/11/2023 Active Start: 11-26-2017 take 200 mg by mouth twice daily Lamotrigine Active 200 MG PO Twice daily November 26, 2017 12:00am levothyroxine sodium 0.075 mg oral tablet (20 sources) l-Thyroxine Start: 07-07-2021 End: 07-22-2024 take 1 tablet by mouth before mealtime levothyroxine (Synthroid, Levoxyl) 75 MCG tablet Indications: Hypothyroidism (acquired) (CMS/HCC) Take 1 tablet (75 mcg) by mouth in the morning. Take before meals. 90 tablet 3 07/22/2024 Active Start: 01-02-2019 End: 07-07-2021 take 88 [...] hydrochloride 5 mg oral tablet (20 sources) R-egjtet-J-aspartate Receptor Antagonist Start: 02-25-2024 take 1 tablet [...] oral tablet (20 sources) Biguanide Start: 07-07-2021 End: 07-22-2025 take 1 tablet by mouth in the morning metFORMIN (Glucophage) 850 MG tablet Indications: Type 2 diabetes mellitus with peripheral neuropathy (CMS/HCC) Take 1 tablet (850 mg) by mouth in the morning and 1 tablet (850 mg) in the evening. Take with meals. 180 tablet 3 07/22/2024 07/22/2025 Active Start: 11-26-2017 End: 07-07-2021 take 500 mg by mouth twice daily Metformin Discontinued 500 MG PO Twice daily November 26, 2017 12:00am July 07, 2021 6:21pm Multiple Vitamins-Minerals ( Centrum Women) tablet (20 sources) Multiple Vitamin s-Minerals (Centrum Women) tablet 1 (one) time each day at the same time Active Multiple Vitamin s-Minerals (Centrum Women) tablet 1 (one) time each day at the same time. Active Multiple Vitamins-Minerals (OCUVITE ADULT 50+ PO) (20 sources) take 1 tablet by mouth once daily Multiple Vitamins-Minerals (OCUVITE ADULT 50+ PO) Take 1 tablet by mouth Daily Active take 1 tablet by mouth in the mo rning Multiple Vitamins-Minerals (OCUVITE ADULT 50+ PO) Take 1 tablet by mouth in the morning. Active Multivitamin preparation (5 sources) Start: 12-30-2018 take 1 capsule by mouth once daily in the morning Multivitamin Active 1 CAP PO Every morning December 30, 2018 12:00am Start: 12-30-2018 take 1 capsule by mo ut once daily in the morning Multivitamin Active [...] OPHT CLINIC MED ORDERS polyethylene glycol 3350 00156 mg powder for oral solution (8 sources) Osmotic Laxative Start: 07-07-2021 polyethylene glycol 3350 17 gram packet Take 17 g by mouth. 07/07/2021 Active Polyethylene Glycols (20 sources) take 17 g by mouth once daily polyethylene glycol, PEG, 3350 (Glycolax, Miralax) powder Take 17 g by mouth Daily Active SITagliptin 50 mg oral tablet (6 sources) Dipeptidyl Peptidase 4 Inhibitor Start: 07-22-2024 End: 07-22-2025 take 1 tablet by mouth once daily SITagliptin (Januvia) 50 MG tablet Indications: Type 2 diabetes mellitus with peripheral neuropathy (CMS/HCC) Take 1 tablet (50 mg) by mouth Daily 90 tablet 3 07/22/2024 07/22/2025 Active sodium fluoride 0.011 mg/mg toothpaste (20 sources) Start: 08-29-2023 PreviDent 5000 Booster Plus 1.1 % paste 09/26/2023 Active tropicamide 10 mg/ml ophthalmic solution (2 sources) Anticholinergic Start: 01-03-2024 End: 01-03-2024 tropicamide 1 % 1 Drop (MYDRIACYL) Start: 01-03-2024 End: 01-03-2024 1 Drop, BOTH EYES, DIRECT ED, Starting on [place] 01/03/24 at 1100, Until [place] 01/03/24 at 2259, Administer for dilation, OPHT CLINIC MED ORDERS Vit C-E-Zinc Tvb-Whhgqc-Fosugf (Ocuvite Eye Health) 50 mg-15 unit- 4.5 mg-2.5 mg Tablet,Chewable (5 sources) Start: 11-26-2017 take 1 tablet by mouth once daily Vit C-E-Zinc Aqa-Rxiexm-Kyrymb (Ocuvite Eye Health) 50 mg-15 unit- 4.5 mg-2.5 mg Tablet,Chewable Active 1 TAB PO Daily November 26, 2017 12:00am Start: 11-26-2017 take 1 tablet by neli once daily Vit C-E-Zinc Xlu-Tosbft-Mwlrtx (Ocuvite Eye Health) 50 mg-15 unit- 4.5 [...] 29, 2018 11:00pm January 02, 2019 10:41am [place]-3 Fatty Acids (Fish Oil Concentrate) 1,000 mg Capsule (5 sources) Start: 11-26-2017 End: 07-07-2021 take 1 capsule by mouth once daily [place]-3 Fatty Acids (Fish Oil Concentrate) 1,000 mg Capsule Discontinued 1000 MG PO Daily November 26, 2017 12:00am July 07, 2021 6:27pm Start: 11-26-2017 End: 07-07-2021 take 1 capsule by mouth once daily [place]-3 Fatty Acids (Fish Oil Concentrate) 1,000 mg [...] convulsions] Onset: 11-16-2022 01-28-2024 Chronic Nutritional deficiencies (20 sources) Vitamin D deficiency; Translations: [Vitamin D deficiency, unspecified] Onset: 10-05-2017 11-16-2022 Chronic Other aftercare (2 sources) Patient encounter status; Translations: [Encounter for therapeutic [...] Date Documented Date Episodic/Chronic Acquired foot deformities (20 sources) Acquired hammer toe of left foot; Translations: [Other hammer toe(s) (acquired), left foot] Onset: 11-16-2022 Resolved: 12-07-2022 12-07-2022 Chronic Delirium, dementia, and amnestic and other cognitive disorders (20 sources) Mild cognitive disorder ; Translations: [Unspecified mental disorder due to known physiological condition] Onset: 10-11-2017 Resolved: 12-07-2022 12-07-2022 Chronic Diseases of mouth; excluding dental (20 sources) Xerostomia; Translations: [Dry mouth, unspecified] Onset: 03-01-2020 11-16-2022 Episodic Mycoses (20 sources) Onychomycosis; Translations: [Tinea unguium] Onset: 12-27-2022 12-27-2022 Episodic Nutritional deficiencies (20 sources) Cobalamin deficiency; Translations: [Deficiency of other specified B group vitamins] Onset: 07-10-2023 01-28-2024 Episodic Osteoarthritis (20 sources) Arthritis of left knee; Translations: [Unilateral primary osteoarthritis, left knee] Onset: 11-16-2022 Resolved: 12-07-2022 12-07-2022 Chronic Other connective tissue disease (4 sources) Pain in left finger(s); Translations: [PAIN IN LEFT FINGERS] Onset: 08-03-2020 Episodic Other connective tissue disease (20 sources) Metatarsalgia of right foot; Translations: [Metatarsalgia, right foot] Onset: 12-27-2022 12-27-2022 Episodic Other ear and sense organ disorders (20 sources) Bilateral tinnitus; Translations: [Tinnitus, bilateral] Onset: 11-16-2022 11-16-2022 Episodic Other nervous system disorders (20 sources) Tremor; Translations: [Tremor, unspecified] Onset: 09-03-2023 12-30-2018 Episodic Other screening for suspected conditions (not mental disorders or infectious disease) (8 sources) Encounter for screening for osteoporosis; Translations: [Encounter for screening mammogram for malignant neoplasm of breast] Onset: 11-22-2023 11-22-2023 Episodic Residual codes; unclassified (17 sources) H/O: breast problem; Translations: [Personal history [...] Test Name Value Interpretation Reference Range Facility [id number] 02-20-2024 [id number] HNO ID: [id number] Author: LISA MCKEON RN Service: ? Author Type: Registered Nurse Type: [id number] Filed: 02/20/2024 10:53 Note Text: Starting on 02/21/24- Pt to wear eye shield at HS and if she is to lay down for nap. Pt may needed assistance with ADLs such as bathing and hair washing due to strict restrictions on not being able to get soap or water in her eye for 2 weeks. Please accommodate as needed. Normal [facility] ANES POSTPROC EVALon 024 ANES POSTPROC EVAL HNO ID: [id number] Author: GUILLE VILLALTA II, DO Service: Anesthesiology Author Type: Anesthesiologist Type: Anesthesia Postprocedure Evaluation Filed: 02/20/2024 11:24 Note Text: POST ANESTHESIA EVALUATION NOTE : 1950 Procedure Summary Date: 02/20/24 Room / Location: [address] Anesthesia Start: 1012 Anesthesia Stop: 1041 Procedures: PHACOEMULSIFICATION CATARACT IMPLANT INTRAOCULAR LENS W/O [...] Guille Villalta II, DO PATIENT NAME: Eva Gallego DATE: February 20, 2024 TIME: 11:23 AM CSN: [id number] Normal [facility] ANES PRE-OPon 02-20-2024 ANES PRE-OP HNO ID: [id number] Author: GUILLE VILLALTA II, DO Service: Anesthesiology Author Type: Anesthesiologist Type: Anesthesia Preprocedure Evaluation Filed: 02/20/2024 09:39 Note Text: ANESTHESIOLOGY DAY OF SURGERY NOTE : 1950 Procedure Information Date/Time: 02/20/24 1005 Procedures: PHACOEMULSIFICATION CATARACT IMPLANT INTRAOCULAR LENS W/O ENDOSCOPIC CYCLOPHOTOCOAGULATION (Left: Eye) OPHTHALMIC BIOMETRY BY PARTIAL COHERENCE INTERFEROMETRY W/INTRAOCULAR LENS POWER CALCULATION (Left: Eye) Location: [place] [address] / [facility] Surgeons: Victorino Remy MD Estimated body [...] and consent discussed: yes. Patient / Responsible Constitution Party agrees to proceed: yes Patient / Surrogate [...] Guille Villalta II, DO PATIENT NAME: Eva Gallego DATE: February 20, 2024 TIME: 9:38 AM CSN: [id number] Normal [facility] OPERATIVE NOon 02-20-2024 OPERATIVE NO HNO ID: [id number] Author: VICTORINO REMY MD Service: Ophthalmology Author Type: Physician Type: Operative Report Filed: 02/20/2024 10:34 Note Text: OPERATIVE/PROCEDURE REPORT LOG ID: [id number] Surgery/Procedure Date: 02/20/2024 Incision/Procedure Start Time: 10:24 AM Incision Close/Procedure End Time: 10:30 AM Surgeon(s)/Proceduralist(s ) and Bisque Finisher(s): Surgeons and Role: * Victorino Remy MD - Primary Bisque Finisher: None. Any nurse listed as assisting or [...] presence of the Nurse Coordinator and the residential appliance repair technician and a secondary full lens verification as part of the Time Out, with patient identity, laterality, and lens choice confirmed against the source document by myself, the Electrician [employer] Nurse, and the residential appliance repair technician. Topical lidocaine gel 2% was placed [...] Using the Al phacoemulsification unit with the Kelman curved tip, the anterior chamber was entered [...] Implant Name Type Inv. Item Serial No. Bug Trimmer Lot No. LRB No. Used Action Model No. [id number].235 [employer] - [id number] Intraocular Lens [id number].235 [employer] [id number] [facility] Left 1 Implanted [id number].235 Drains: None. Complications: None. I performed the entire procedure. Comanage with Dr. Whitfield; [facility] POD #1. SIGNATURE: Victorino Remy MD PATIENT NAME: Eva Gallego DATE: February 20, 2024 TIME: 10:33 AM PAGER/CONTACT #: Bryson [facility] ANES POSTPROC EVALon 024 ANES POSTPROC EVAL HNO ID: [id number] Author: GUILLE VILLALTA II, DO Service: Anesthesiology Author Type: Anesthesiologist Type: Anesthesia Postprocedure Evaluation Filed: 02/06/2024 11:38 Note Text: POST ANESTHESIA EVALUATION NOTE : 1950 Procedure Summary Date: 02/06/24 Room / Location: [address] Anesthesia Start: 951 Anesthesia Stop: 1018 [...] Guille Villalta II, DO PATIENT NAME: Eva Gallego DATE: February 06, 2024 TIME: 11:38 AM CSN: [id number] Normal [facility] ANES PRE-OPon 02-06-2024 ANES PRE-OP HNO ID: [id number] Author: GUILLE VILLALTA II, DO Service: Anesthesiology Author Type: Anesthesiologist Type: Anesthesia Preprocedure Evaluation Filed: 02/06/2024 09:23 Note Text: ANESTHESIOLOGY DAY OF SURGERY NOTE : 1950 Procedure Information Date/Time: 02/06/24 0950 Procedures: PHACOEMULSIFICATION CATARACT IMPLANT INTRAOCULAR LENS W/O ENDOSCOPIC CYCLOPHOTOCOAGULATION (Right: Eye) OPHTHALMIC BIOMETRY BY PARTIAL COHERENCE INTERFEROMETRY W/INTRAOCULAR LENS POWER CALCULATION (Right: Eye) Location: [address] Surgeons: Victorino Remy MD Estimated body [...] and consent discussed: yes. Patient / Responsible Constitution Party agrees to proceed: yes Patient / Surrogate [...] Guille Villalta II, DO PATIENT NAME: Eva Gallego DATE: February 06, 2024 TIME: 9:22 AM CSN: [id number] [facility] NURSING PROGon 02-06-2024 NURSING PROG HNO ID: [id number] Author: OXANA ANAYA RN Service: ? Author [...] Oxana Anaya RN In Department: AMBULATORY SURGERY [facility] OPERATIVE NOon 02-06-2024 OPERATIVE NO HNO ID: [id number] Author: VICTORINO REMY MD Service: Ophthalmology Author Type: Physician Type: Operative Report Filed: 02/06/2024 10:15 Note Text: OPERATIVE/PROCEDURE REPORT LOG ID: [id number] Surgery/Procedure Date: 02/06/2024 Incision/Procedure Start Time: 10:02 AM Incision Close/Procedure End Time: 10:08 AM Surgeon(s)/Proceduralist(s ) and Bisque Finisher(s): Surgeons and Role: * Victorino Remy MD - Primary Bisque Finisher: None. Any nurse listed as assisting or [...] presence of the Nurse Coordinator and the residential appliance repair technician and a secondary full lens verification as part of the Time Out, with patient identity, laterality, and lens choice confirmed against the source document by myself, the [employer] Nurse, and the residential appliance repair technician. Topical lidocaine gel 2% was placed [...] Using the Al phacoemulsification unit with the Kelman curved tip, the anterior chamber was entered [...] Implant Name Type Inv. Item Serial No. Bug Trimmer Lot No. LRB No. Used Action Model No. CC60WF.225 [employer] - [id number] Intraocular Lens [id number].225 [employer] [id number] [facility] Right 1 Implanted [id number].225 Drains: None. Complications: None. I performed the entire procedure. Comanage with Dr. Whitfield; [facility] POD #1. SIGNATURE: Victorino Remy MD PATIENT NAME: Eva Gallego DATE: February 06, 2024 TIME: 10:12 AM PAGER/CONTACT #: Normal [facility] ASCAN ONLY - DIAGNOSTIC OU ( BOTH EYES)on 01-29-2024 [facility] Radiology Study observation (narrative) [facility] HISTORY PHYSICALon HISTORY PHYSICAL HNO ID: [id number] Author: ZACARIAS RAY APRN.PSYCHIATRY TEACHER Service: ? Author Type: Nurse Practitioner Type: H&P Filed: 01/30/2024 11:33 Note Text: [facility] HISTORY AND PHYSICAL EXAMINATION SERVICE DATE: 01/29/2024 SERVICE TIME: 12:17 PM PRIMARY CARE PHYSICIAN: No primary care provider on file. REASON FOR VISIT: Eva Gallego is a 73 year old female who [...] large neck Non-male patient STOP-Bang Score: 1 [id number] Score: Age: >=75 Sex: female CHF history: No Hypertension history: No Stroke/TIA/thromboembolism history: No Vascular disease history: No Diabetes history: Yes [id number] Score: 4 ARISCAT Score: Age: 51-80 Preoperative [...] of vision (more content not included)... Normal [facility] IOL BIOMETRY W/ IOL CALC OU (BOTH EYES)on 01-29-2024 [facility] Radiology Study observation (narrative) [facility] No Panel Informationon 01-14 [facility] Audiometry Audio indicated a mild sloping to severe sensorineural hearing loss 250-6000 Hz, rising to a moderately-severe hearing loss at 8000 Hz in the right ear. The left ear exhibited a mild sensorineural hearing loss 250-500 Hz, rising to normal hearing 1525-5930 Hz, sloping to a moderate to moderately-severe sensorineural hearing loss 6942-9200 Hz. Today's audio is consistent with previous results recorded 09-14-2021. [facility] - Hematology and Cell countson 01-09-2024 HbA1c (Bld) [Mass fraction] 8.5 % [facility] No Panel Informationon 01-08 [facility] CORNEAL TOPOGRAPHY ATLAS OU (BOTH EYES)on 01-03-2024 [facility] Radiology Study observation (narrative) [facility] OCT MACULA CIRRUS OU (BOTH E YES)on 01-03-2024 [facility] Radiology Study observation (narrative) [facility] MM screening mammo BI w/CADo n 11-22-2023 MM screening mammo BI w/CAD [facility] [place] [address] Mammography Report Signed Patient: Eva Gallego MR#: [id number] : 1950 Acct:[id number] Age/Sex: 73 / F ADM Date: 11/22/23 Loc: [place] Room: Type: [facility] Attending Dr: Referral Self Copies to: [...] Baudilio Lazo M.D.11/22/2023 10:07 AM Dictation Location: [facility] Transcribed By: [facility] 11/22/23 1007 Dictated By: Baudilio Lazo DO 11/22/23 1005 Signed By: 11/22/23 1007 Normal [facility] Activated partial thrombopla stin time (aPTT) in platelet poor plasma by coagulation aOrdered By: Billy Bang on 12-04-2022 aPTT Coag (PPP) [Time] 30.5 s 25.1-36.5 [facility] Alanine aminotransferase [En zymatic activity/volume] in Serum or PlasmaOrdered By: Billy Bang on 12-04-2022 ALT [Catalytic activity/Vol] 24 U/L Normal 7-52 [facility] Comment on above: Performed By: #### C BC, CMP, CUBLD, PTT, CK, PT, ESR, MG, CRP ####[facility] Albumin [Mass/volume] in Ser um or Plasma by Bromocresol green (BCG) dye binding methoOrdered By: Billy Bang on 12-04-2022 Albumin BCG dye [Mass/Vol] 4.5 g/dL 3.5-5.7 [facility] Alkaline phosphatase [Enzyma tic activity/volume] in Serum or PlasmaOrdered By: Billy Bang on 12-04-2022 ALP [Catalytic activity/Vol] 53 U/L Normal 34-104 [facility] Comment on above: Performed By: #### C BC, CMP, CUBLD, PTT, CK, PT, ESR, MG, CRP ####[facility] Aspartate aminotransferase [ Enzymatic activity/volume] in Serum or PlasmaOrdered By: Billy Bang on 12-04-2022 AST [Catalytic activity/Vol] 20 U/L Normal 13-39 [facility] Comment on above: Performed By: #### C BC, CMP, CUBLD, PTT, CK, PT, ESR, MG, CRP ####[facility] Automated basophil %Ordered By: Billy Bang on 12-04-2022 Basophils/100 WBC (Bld) 0.5 % Normal . [facility] Comment on above: Performed By: #### C BC, CMP, CUBLD, PTT, CK, PT, ESR, MG, CRP #### [address] Automated basophil countOrde red By: Billy Bang on 12-04-2022 Basophils (Bld) [#/Vol] 0.0 10*3/uL Normal 0.0-0.2 [facility] Comment on above: Performed By: #### C BC, CMP, CUBLD, PTT, CK, PT, ESR, MG, CRP #### [address] Automated blood monocyte cou ntOrdered By: Billy Bang on 12-04-2022 Monocytes (Bld) [#/Vol] 0.6 10*3/uL Normal 0.0-0.8 [facility] Comment on above: Performed By: #### C BC, CMP, CUBLD, PTT, CK, PT, ESR, MG, CRP #### [address] Automated eosinophil %Ordere d By: Billy Bang on 12-04-2022 Eosinophils/100 WBC (Bld) 3.6 % Normal . [facility] Comment on above: Performed By: #### C BC, CMP, CUBLD, PTT, CK, PT, ESR, MG, CRP #### [address] Automated eosinophil countOr dered By: Billy Bang on 12-04-2022 Eosinophils (Bld) [#/Vol] 0.2 10*3/uL Normal 0.0-0.45 [facility] Comment on above: Performed By: #### C BC, CMP, CUBLD, PTT, CK, PT, ESR, MG, CRP #### [address] Automated erythrocytes count in urine sediment (number/area)Ordered By: Billy Bang on 12-04-2022 RBC Auto (Urine sed) [#/Area] 0-1 [HPF] 0-4 [facility] Automated leukocytes count i n urine sediment (number/area)Ordered By: Billy Bang on 12-04-2022 WBC Auto (Urine sed) [#/Area] 10-19 [HPF] 0-4 [facility] Automated monocyte %Ordered By: Billy Bang on 12-04-2022 Monocytes/100 WBC (Bld) 10.0 % Normal . [facility] Comment on above: Performed By: #### C BC, CMP, CUBLD, PTT, CK, PT, ESR, MG, CRP #### [facility] [address] Automated neutrophil %Ordere d By: Billy Bang on 12-04-2022 Neutrophils/100 WBC (Bld) 50.7 % Normal . [facility] Comment on above: Performed By: #### C BC, CMP, CUBLD, PTT, CK, PT, ESR, MG, CRP #### [facility] [address] Automated urine color determ inationOrdered By: Billy Bang on 12-04-2022 Color (U) Yellow Normal Yellow [facility] Comment on above: Order Comment: Name Collection Type:: Clean-Voided Midstream Performed By: #### A DDONUAPLUS, CUU #### [facility] [address] Bilirubin Test strip Ql (U)O rdered By: Billy Bang on 12-04-2022 Bilirubin Ql (U) Negative Negative [facility] Bilirubin.total [Mass/volume ] in Serum or PlasmaOrdered By: Billy Bang on 12-04-2022 Bilirubin [Mass/Vol] 0.3 mg/dL Normal 0.3-1.0 [facility] Comment on above: Performed By: #### C BC, CMP, CUBLD, PTT, CK, PT, ESR, MG, CRP ####[facility] [place] Blood Cultureon 12-04-2022 Bacteria identified Cx Nom (Bld) NO GROWTH 5 DAYS PERFORMED BY: [place] [address] PATHOLOGIST BOLT SAWYER CODEY DAVIS M.D. Normal [facility] Comment on above: Performed By: #### C BC, CMP, CUBLD, PTT, CK, PT, ESR, MG, CRP ####[place] [id number] [place] [id number] [facility] Bacteria identified Cx Nom (Bld) NO GROWTH 5 DAYS PERFORMED BY: [place] [address] PATHOLOGIST BOLT SAWYER CODEY DAVIS M.D. Normal [facility] Comment on above: Performed By: #### C BC, CMP, CUBLD, PTT, CK, PT, ESR, MG, CRP ####[place] [id number] [place] [id number] [facility] C reactive protein [Mass/vol ume] in Serum or PlasmaOrdered By: Billy Bang on 12-04-2022 CRP [Mass/Vol] < 0.5 mg/dL 0.0-0.5 [facility] C-Reactive Proteinon 023 CRP [Mass/Vol] mg/L Normal 0.0-0.5 [facility] Comment on above: Result Comment: PERF ORMED BY: [place] [address] PATHOLOGIST BOLT SAWYER CODEY DAVIS M.D. Performed By: #### C BC, CMP, CUBLD, PTT, CK, PT, ESR, MG, CRP ####[place] [address] [place] [id number] [facility] CT abdomen pelvis wo conon 0 12-04-2022 CT abdomen pelvis wo con [facility] [place] [address] CT Scan Report Signed Patient: Eva Gallego MR#: [id number] : 1950 Acct:[id number] Age/Sex: 72 / F ADM Date: 12/04/22 Loc: ER Room: Type: [facility] ER Attending Dr: Copies to: Billy Bang [...] Mitchell Cross M.D.12/04/2022 6:06 PM Dictation Location: [place] [address] Transcribed By: [facility] 12/04/221805 Dictated By: Mitchell Cross II, MD 12/04/221749 Signed By: 12/04/221805 Normal [facility] Calcium [Mass/volume] in Ser um or PlasmaOrdered By: Billy Bang on 12-04-2022 Calcium [Mass/Vol] 10.3 mg/dL Normal 8.6-10.3 [facility] Comment on above: Performed By: #### C BC, CMP, CUBLD, PTT, CK, PT, ESR, MG, CRP ####[facility] Hxn[address] [place] [address] [facility] Capillary blood glucose reva urement by glucometer (mass/volume)Ordered By: Billy Bang on 12-04-2022 Glucose [Mass/Vol] 198 mg/dL Normal [facility] Comment on above: Random Glucose Refer ence Range is dependent on time and content of last meal. Glucose of more than 200 mg/dL in a nonstressed, ambulatory subject supports the diagnosis of Diabetes Mellitus. Result Comment: Donahue om Glucose Reference Range is dependent on time and content of last meal. Glucose of more than 200 mg/dL in a nonstressed, ambulatory subject supports the diagnosis of Diabetes Mellitus. Performed By: #### G TOO #### Point of Care testing , Carbon dioxide, total [Moles /volume] in Serum or PlasmaOrdered By: Billy Bang on 12-04-2022 CO2 [Moles/Vol] 27.5 mmol/L Normal 21.0-31.0 [facility] Comment on above: Performed By: #### C BC, CMP, CUBLD, PTT, CK, PT, ESR, MG, CRP ####[facility] [id number] [place] [id number] [facility] Chloride [Moles/volume] in S kathy or PlasmaOrdered By: Billy Bang on 12-04-2022 Chloride [Moles/Vol] 100 mmol/L Normal 98-107 [facility] Comment on above: Performed By: #### C BC, CMP, CUBLD, PTT, CK, PT, ESR, MG, CRP ####[address] Complete Blood Count Auto Di ffon 12-04-2022 Mean Corpuscular HGB Conc 34.0 g/dL Normal 32.0-35.0 [facility] Comment on above: Performed By: #### C BC, CMP, CUBLD, PTT, CK, PT, ESR, MG, CRP #### [address] Monocytes/100 WBC (Bld) 15.32 % Normal 0.00-20.00 [facility] Comment on above: Performed By: #### C BC, CMP, CUBLD, PTT, CK, PT, ESR, MG, CRP #### [address] NRBC% 0.1 /100{WBC} Normal 0-0.5 [facility] Comment on above: Performed By: #### C BC, CMP, CUBLD, PTT, CK, PT, ESR, MG, CRP #### [address] Comprehensive Metabolic Pane laureano 12-04-2022 Albumin [Mass/Vol] 4.5 g/dL Normal 3.5-5.7 [facility] Comment on above: Performed By: #### C BC, CMP, CUBLD, PTT, CK, PT, ESR, MG, CRP ####[address] Anion gap [Moles/Vol] Not performed Normal 6.0-15.0 [facility] Comment on above: Performed By: #### C BC, CMP, CUBLD, PTT, CK, PT, ESR, MG, CRP ####[address] Creatinine Clr Calc Pharmacy 51.11 Normal [facility] Comment on above: Performed By: #### C BC, CMP, CUBLD, PTT, CK, PT, ESR, MG, CRP ####[address] [place] [address] [facility] GFR/1.73 sq M.predicted MDRD (S/P/Bld) [Vol rate/Area] mL/min/{1.73_m2} Normal [facility] Comment on above: Performed By: #### C BC, CMP, CUBLD, PTT, CK, PT, ESR, MG, CRP ####[address] Potassium Normal 3.5-5.1 [facility] Comment on above: Result Comment: Spec imen hemolyzed, redraw requested Performed By: #### C BC, CMP, CUBLD, PTT, CK, PT, ESR, MG, CRP ####[address] Creatine kinase [Enzymatic a ctivity/volume] in Serum or PlasmaOrdered By: Billy Bang on 12-04-2022 CK [Catalytic activity/Vol] 94 U/L Normal 30-223 [facility] Comment on above: Result Comment: PERF ORMED BY: [place] [address] PATHOLOGIST BOLT SAWYER CODEY DAVIS M.D. Performed By: #### C BC, CMP, CUBLD, PTT, CK, PT, ESR, MG, CRP ####[place] [id number] [facility] Creatinine [Mass/volume] in Serum or PlasmaOrdered By: Billy Bang on 12-04-2022 Creatinine [Mass/Vol] 0.98 mg/dL Normal 0.60-1.20 [facility] Comment on above: Performed By: #### C BC, CMP, CUBLD, PTT, CK, PT, ESR, MG, CRP ####[place] [id number] [facility] Dipstick and Microscopicon 0 12-04-2022 Appearance (U) Clear Normal Clear [facility] Comment on above: Order Comment: Name Collection Type:: Clean-Voided Midstream Performed By: #### A MICKY CABRERA #### [facility] [address] [place] [address] [place] Bacteria,Urine None Seen Normal None Seen [facility] Comment on above: Order Comment: Name Collection Type:: Clean-Voided Midstream Performed By: #### A DDONUAPLUS, CUU #### [address] Bilirubin,Urine Negative Normal Negative [facility] Comment on above: Order Comment: Name Collection Type:: Clean-Voided Midstream Performed By: #### A DDONUAPLUS, CUU #### [place] [address] [place] Glucose Ql (U) Normal Normal Normal [facility] Comment on above: Order Comment: Name Collection Type:: Clean-Voided Midstream Performed By: #### A DDONUAPLUS, CUU #### [place] [address] [place] Hyaline Casts,Urine None Seen Normal 0-8 [facility] Comment on above: Order Comment: Name Collection Type:: Clean-Voided Midstream Result Comment: PERF ORMED BY: [place] [address] PATHOLOGIST BOLT SAWYER CODEY DAVIS M.D. Performed By: #### A DDONUAPLUS, CUU #### [place] [address] [place] Ketones Ql (U) Negative Normal Negative [facility] Comment on above: Order Comment: Name Collection Type:: Clean-Voided Midstream Performed By: #### A DDONUAPLUS, CUU #### [place] [address] [place] Leukocyte esterase Test strip Ql (U) 3+ High Negative [facility] Comment on above: Order Comment: Name Collection Type:: Clean-Voided Midstream Performed By: #### A DDONUAPLUS, CUU #### [place] [address] [place] Nitrite,Urine Negative Normal Negative [facility] Comment on above: Order Comment: Name Collection Type:: Clean-Voided Midstream Performed By: #### A DDONUAPLUS, CUU #### [place] [address] [place] Occult Blood,Urine Negative Normal Negative [facility] Comment on above: Order Comment: Name Collection Type:: Clean-Voided Midstream Result Comment: PERF ORMED BY: [place] [address] PATHOLOGIST BOLT SAWYER CODEY DAVIS M.D. Performed By: #### A DDONUAPLUS, CUU #### [place] [address] [place] Protein,Urine Negative Normal Negative [facility] Comment on above: Order Comment: Name Collection Type:: Clean-Voided Midstream Performed By: #### A DDONUAPLUS, CUU #### [place] [address] [place] RBC LM.HPF (Urine sed) [#/Area] 0 /[HPF] Normal 0-4 [facility] Comment on above: Order Comment: Name Collection Type:: Clean-Voided Midstream Performed By: #### A DDONUAPLUS, CUU #### [place] [address] [place] Specificy [place],Urine 1.014 Normal 1.001-1.030 [facility] Comment on above: Order Comment: Name Collection Type:: Clean-Voided Midstream Performed By: #### A DDONUAPLUS, CUU #### [place] [address] [place] Squamous Epithelial Cell,Urine 0-1 Normal 0-2 [facility] Comment on above: Order Comment: Name Collection Type:: Clean-Voided Midstream Performed By: #### A DDONUAPLUS, CUU #### [place] [address] [place] Urobilinogen,Urine Normal Normal Normal [facility] Comment on above: Order Comment: Name Collection Type:: Clean-Voided Midstream Performed By: #### A DDONUAPLUS, CUU #### [place] [address] [place] WBC,Urine 10-19 High 0-4 [facility] Comment on above: Order Comment: Name Collection Type:: Clean-Voided Midstream Performed By: #### A MICKY CABRERA #### [facility] [address] [place] [id number] [facility] ECG 12 lead ECGon 12-04-2022 ECG 12 lead ECG [facility] Main Outing [address] [place] [address] Electrocardiograph Report Signed Patient: Eva Gallego MR#: [id number] : 1950 Acct:[id number] Age/Sex: 72 / F ADM Date: 12/04/22 Loc: ER Room: Type: [facility] ER Attending Dr: Ordering Provider: Bilyl Bang DO Date of Service: 12/04/22 ECG/ECG [...] sinus rhythm Confirmed by Billy BANG DO ([id number]) on 12/04/2022 7:32:54 PM Referred By: Electronically Signed By:Billy BANG DO Transcribed By: MUS Signed By Billy Bang DO 0 12/04/22 193 Normal [facility] Erythrocyte Sedimentation Ra lindsey 12-04-2022 ESR (Bld) [Velocity] 14 mm/h Normal 0-29 [facility] Comment on above: Result Comment: PERF ORMED BY: [place] [address] PATHOLOGIST BOLT SAWYER CODEY DAVIS M.D. Performed By: #### C BC, CMP, CUBLD, PTT, CK, PT, ESR, MG, CRP ####[facility] [id number] [place] [id number] [facility] Erythrocyte distribution wid th [Ratio] by Automated countOrdered By: Billy Bang on 12-04-2022 Erythrocyte distribution width (RBC) [Ratio] 13.2 % Normal 11.9-15.3 [facility] Comment on above: Performed By: #### C BC, CMP, CUBLD, PTT, CK, PT, ESR, MG, CRP #### [facility] [address] Erythrocyte sedimentation ra te by Photometric methodOrdered By: Billy Bang on 12-04-2022 ESR Photometric method (Bld) [Velocity] 14 mm/hr 0-29 [facility] Erythrocytes [#/volume] in B lood by Automated countOrdered By: Billy Bang on 12-04-2022 RBC (Bld) [#/Vol] 4.19 10*6/uL Normal 3.60-5.00 [facility] Comment on above: Performed By: #### C BC, CMP, CUBLD, PTT, CK, PT, ESR, MG, CRP #### [facility] [address] Glucose Poct Glucometerson 0 12-04-2022 Commemt1 Glu2: Cleaned Meter Normal [facility] Comment on above: Result Comment: PERF ORMED BY: [facility] [address] [place] [address] PATHOLOGIST BOLT SAWYER CODEY DAVIS M.D. Performed By: #### G TOO #### Point of Care testing , Glucose [Mass/volume] in Ser um or PlasmaOrdered By: Billy Bang on 12-04-2022 Glucose [Mass/Vol] 190 mg/dL High 70-100 [facility] Comment on above: ADA recommended refe rence rangeRandom Glucose Reference Range is dependent on time and content of last meal. Glucose of more than 200 mg/dL in a nonstressed, ambulatory subject supports the diagnosis of Diabetes Mellitus. Result Comment: Donahue om Glucose Reference Range is dependent on time and content of last meal. Glucose of more than 200 mg/dL in a nonstressed, ambulatory subject supports the diagnosis of Diabetes Mellitus. ADA recommended reference range Performed By: #### C BC, CMP, CUBLD, PTT, CK, PT, ESR, MG, CRP ####[facility] [id number] Hematocrit [Volume Fraction] of Blood by Automated countOrdered By: Billy Bang on 12-04-2022 Hematocrit (Bld) [Volume fraction] 39.7 % Normal 34.0-46.4 [facility] Comment on above: Performed By: #### C BC, CMP, CUBLD, PTT, CK, PT, ESR, MG, CRP #### [facility] [address] Hemoglobin [Mass/volume] in BloodOrdered By: Billy Bang on 12-04-2022 Hemoglobin (Bld) [Mass/Vol] 13.5 g/dL Normal 11.8-15.4 [facility] Comment on above: Performed By: #### C BC, CMP, CUBLD, PTT, CK, PT, ESR, MG, CRP #### [facility] [address] Ketones Auto test strip (U) [Mass/Vol]Ordered By: Billy Bang on 12-04-2022 Ketones (U) [Mass/Vol] Negative Negative [facility] - UrinalysisOrder ed By: Billy Bang on 12-04-2022 Hyaline casts LM Ql (Urine sed) None seen [LPF] 0-8 [facility] Lactate [Moles/volume] in Se rum or PlasmaOrdered By: Billy Bang on 12-04-2022 Lactate [Moles/Vol] 1.9 mmol/L Normal 0.5-2.2 [facility] Comment on above: Result Comment: PERF ORMED BY: [place] [address] PATHOLOGIST BOLT SAWYER CODEY DAVIS M.D. Performed By: #### L ACTIC #### [facility] [address] Leukocytes [#/volume] correc venu for nucleated erythrocytes in Blood by Automated counOrdered By: Billy Bang on 12-04-2022 WBC corrected for nucl RBC Auto (Bld) [#/Vol] 6.5 10*3/uL 3.8-11.6 [facility] Leukocytes [#/volume] in Blo od by Automated countOrdered By: Billy Bang on 12-04-2022 WBC (Bld) [#/Vol] 6.5 10*3/uL Normal 3.8-11.6 [facility] Comment on above: Performed By: #### C BC, CMP, CUBLD, PTT, CK, PT, ESR, MG, CRP #### [facility] [address] Lymphocytes [#/volume] in Bl ood by Automated countOrdered By: Billy Bang on 12-04-2022 Lymphocytes (Bld) [#/Vol] 2.3 10*3/uL Normal 1.00-4.8 [facility] Comment on above: Performed By: #### C BC, CMP, CUBLD, PTT, CK, PT, ESR, MG, CRP #### [facility] [address] Lymphocytes/100 leukocytes i n Blood by Automated countOrdered By: Billy Bnag on 12-04-2022 Lymphocytes/100 WBC (Bld) 35.2 % Normal . [facility] Comment on above: Performed By: #### C BC, CMP, CUBLD, PTT, CK, PT, ESR, MG, CRP #### [facility] [address] MCH [Entitic mass] by Automa venu countOrdered By: Billy Bang on 12-04-2022 MCH (RBC) [Entitic mass] 32.3 pg Normal 24.7-34.3 [facility] Comment on above: Performed By: #### C BC, CMP, CUBLD, PTT, CK, PT, ESR, MG, CRP #### [facility] [address] MCHC Auto (RBC) [Mass/Vol]Or dered By: Billy Bang on 12-04-2022 MCHC (RBC) [Mass/Vol] 34.0 g/dL 32.0-35.0 [facility] MCV [Entitic volume] by Auto mated countOrdered By: Billy Bang on 12-04-2022 MCV (RBC) [Entitic vol] 94.8 fL Normal 80-100 [facility] Comment on above: Performed By: #### C BC, CMP, CUBLD, PTT, CK, PT, ESR, MG, CRP #### [facility] [address] [place] [address] [place] Magnesium [Mass/volume] in S kathy or PlasmaOrdered By: Billy Bang on 12-04-2022 Magnesium [Mass/Vol] 1.9 mg/dL Normal 1.9-2.7 [facility] Comment on above: Performed By: #### C BC, CMP, CUBLD, PTT, CK, PT, ESR, MG, CRP ####[facility] Oxk[address] Monocyte distribution width [Entitic volume] in Blood by AutomatedOrdered By: Billy Bang on 12-04-2022 Monocyte distribution width Auto (Bld) [Entitic vol] 15.32 % 0.00-20.00 [facility] Neutrophils [#/volume] in Bl ood by Automated countOrdered By: Billy Bang on 12-04-2022 Neutrophils (Bld) [#/Vol] 3.3 10*3/uL Normal 1.8-7.7 [facility] Comment on above: Performed By: #### C BC, CMP, CUBLD, PTT, CK, PT, ESR, MG, CRP #### [facility] [address] Nitrite Test strip Ql (U)Ord ered By: Billy Bang on 12-04-2022 Nitrite Ql (U) Negative Negative [facility] No Panel InformationOrdered By: Billy Bang on 12-04-2022 Estimated GFR (CKD-EPI) > 60.0 mL/Min [facility] Creatinine Clearance (Chem 51.11 [facility] Bedside Glucose Comment Glu2: cleaned meter [facility] Nucleated erythrocytes [Pres ence] in Blood by Automated countOrdered By: Billy Bang on 12-04-2022 Nucleated RBC Auto Ql (Bld) 0.1 /100{WBC} 0-0.5 [facility] Partial Thromboplastin Timeo n 12-04-2022 aPTT Coag (Bld) [Time] 30.5 s Normal 25.1-36.5 Th e [facility] Comment on above: Result Comment: PERF ORMED BY: [facility] [address] [place] [address] PATHOLOGIST BOLT SAWYER CODEY DAVIS M.D. Performed By: #### C BC, CMP, CUBLD, PTT, CK, PT, ESR, MG, CRP ####[place] [id number] [address] Platelet mean volume [Entiti c volume] in Blood by Automated countOrdered By: Billy Bang on 12-04-2022 Platelet mean volume (Bld) [Entitic vol] 7.8 fL Normal 6.3-10.7 [facility] Comment on above: Performed By: #### C BC, CMP, CUBLD, PTT, CK, PT, ESR, MG, CRP #### [address] Platelet poor plasma interna tional normalized ratio (INR) by coagulation assay (relatOrdered By: Billy Bnag on 12-04-2022 INR Coag (PPP) [Relative time] 0.9 {INR} Normal [facility] Comment on above: INR Therapeutic Rang [...] CUBLD, PTT, CK, PT, ESR, MG, CRP ####[facility] Platelets [#/volume] in Bloo d by Automated countOrdered By: Billy Bang on 12-04-2022 Platelets (Bld) [#/Vol] 235 10*3/uL Normal 150-450 [facility] Comment on above: Performed By: #### C BC, CMP, CUBLD, PTT, CK, PT, ESR, MG, CRP #### [facility] [address] Potassium [Moles/volume] in Serum or PlasmaOrdered By: Billy Bang on 12-04-2022 Potassium [Moles/Vol] 4.2 mmol/L Normal 3.5-5.1 [facility] Comment on above: Order Comment: 1ST S AMPLE HEMOLYZED. RN USHA PONCE NOTIFIED. RN WILL CALL IF PHLEB IS NEEDED. DC Result Comment: PERF ORMED BY: [place] [address] PATHOLOGIST BOLT SAWYER CODEY DAVIS M.D. Performed By: #### R RITA K #### [facility] [address] Protein Auto test strip (U) [Mass/Vol]Ordered By: Billy Bang on 12-04-2022 Protein (U) [Mass/Vol] Negative Negative [facility] Protein [Mass/volume] in Ser um or PlasmaOrdered By: Billy Bang on 12-04-2022 Protein [Mass/Vol] 7.9 g/dL Normal 6.4-8.9 [facility] Comment on above: Performed By: #### C BC, CMP, CUBLD, PTT, CK, PT, ESR, MG, CRP ####[facility] [place] [id number] [facility] Prothrombin Time INROrdered By: Billy Bang on 12-04-2022 PT Coag (PPP) [Time] 10.1 s Normal 9.0-12.9 [facility] Comment on above: Performed By: #### C BC, CMP, CUBLD, PTT, CK, PT, ESR, MG, CRP ####[facility] Serum globulin measurement b y calculation (mass/volume)Ordered By: Billy Bang on 12-04-2022 Globulin (S) [Mass/Vol] 3.4 g/dL [facility] Comment on above: Performed By: #### C BC, CMP, CUBLD, PTT, CK, PT, ESR, MG, CRP ####[place] [id number] [address] Serum or plasma albumin/glob ulin mass ratioOrdered By: Billy Bang on 12-04-2022 Albumin/Globulin [Mass ratio] 1.3 {ratio} [facility] Comment on above: Performed By: #### C BC, CMP, CUBLD, PTT, CK, PT, ESR, MG, CRP ####[place] [id number] [address] Serum or plasma anion gap de terminationOrdered By: Billy Bang on 12-04-2022 Anion gap [Moles/Vol] TNP [facility] Comment on above: Test not performed Sodium [Moles/volume] in Ser um or PlasmaOrdered By: Billy Bang on 12-04-2022 Sodium [Moles/Vol] 136 mmol/L Normal 136-145 [facility] Comment on above: Performed By: #### C BC, CMP, CUBLD, PTT, CK, PT, ESR, MG, CRP ####[address] Specific gravity Auto test s trip (U) [Rel density]Ordered By: Billy Bang on 12-04-2022 Specific gravity (U) [Rel density] 1.014 1.001-1.030 [facility] Squamous epithelial cells de tection in urine sediment by light microscopyOrdered By: Billy Bang on 12-04-2022 Epithelial cells.squamous LM Ql (Urine sed) 0-1 [HPF] 0-2 [facility] Urea nitrogen [Mass/volume] in Serum or PlasmaOrdered By: Billy Bang on 12-04-2022 Urea nitrogen [Mass/Vol] 21 mg/dL Normal 7-25 [facility] Comment on above: Performed By: #### C BC, CMP, CUBLD, PTT, CK, PT, ESR, MG, CRP ####[facility] Krg[address] Urine Cultureon 12-04-2022 Bacteria identified Cx Nom (U) 20,000 colonies/ml mixed bacterial skin contaminants 2 Days PERFORMED BY: [place] [address] PATHOLOGIST BOLT SAWYER CODEY DAVIS M.D. Normal [facility] Comment on above: Performed By: #### A RICK, CUU #### [address] Urine bacteria detection by automated methodOrdered By: Billy Bang on 12-04-2022 Bacteria Auto Ql (U) None seen None Seen [facility] Urine clarity by refractomet ry automatedOrdered By: Billy Bang on 12-04-2022 Clarity Refractometry automated (U) Clear Clear [facility] Urine glucose measurement by automated test strip (mass/volume)Ordered By: Billy Bang on 12-04-2022 Glucose Auto test strip (U) [Mass/Vol] Normal mg/dL Normal [facility] Urine hemoglobin detection b y automated test stripOrdered By: Billy Bang on 12-04-2022 Hemoglobin Auto test strip Ql (U) Negative Negative [facility] Urine leukocyte esterase det ection by automated test stripOrdered By: Billy Bang on 12-04-2022 Leukocyte esterase Auto test strip Ql (U) 3+ Negative [facility] Urine pH measurement by auto mated test stripOrdered By: Billy Bang on 12-04-2022 pH (U) 6.0 [pH] Normal 5.0-9.0 [facility] Comment on above: Order Comment: Name Collection Type:: Clean-Voided Midstream Performed By: #### A RICK, CUU #### [facility] [address] [place] [address] Urobilinogen Auto test strip (U) [Mass/Vol]Ordered By: Billy Bang on 12-04-2022 Urobilinogen (U) [Mass/Vol] Normal mg/dL Normal [facility] XR chest 2V*on 12-04-2022 XR chest 2V* [facility] [place] [address] XRay Report Signed Patient: Eva Gallego MR#: [id number] : 1950 Acct:[id number] Age/Sex: 72 / F ADM Date: 12/04/22 [...] Mitchell Cross M.D.12/04/2022 5:51 PM Dictation Location: [place] [address] Transcribed By: [facility] 12/04/221750 Dictated By: Mitchell Cross II, MD 12/04/221746 Signed By: 12/04/22 175 Normal [facility] Alanine aminotransferase [En zymatic activity/volume] in Serum or PlasmaOrdered By: Mariann Lynn on 07-11-2022 ALT [Catalytic activity/Vol] 15 U/L 7-52 [facility] Albumin [Mass/volume] in Ser um or Plasma by Bromocresol green (BCG) dye binding methoOrdered By: Mariann Lynn on 07-11-2022 Albumin BCG dye [Mass/Vol] 4.6 g/dL 3.5-5.7 [facility] Alkaline phosphatase [Enzyma tic activity/volume] in Serum or PlasmaOrdered By: Mariann Lynn on 07-11-2022 ALP [Catalytic activity/Vol] 50 U/L 34-104 [facility] Aspartate aminotransferase [ Enzymatic activity/volume] in Serum or PlasmaOrdered By: Mariann Lynn on 07-11-2022 AST [Catalytic activity/Vol] 14 U/L 13-39 [facility] Basophils Auto (Bld) [#/Vol] Ordered By: Mariann Lynn on 07-11-2022 Basophils (Bld) [#/Vol] 0.0 10*3/uL 0.0-0.2 [facility] Basophils/100 WBC Auto (Bld) Ordered By: Mariann Lynn on 07-11-2022 Basophils/100 WBC (Bld) 0.4 % . [facility] Bilirubin.total [Mass/volume ] in Serum or PlasmaOrdered By: Mariann Lynn on 07-11-2022 Bilirubin [Mass/Vol] 0.3 mg/dL 0.3-1.0 [facility] Calcium [Mass/volume] in Ser um or PlasmaOrdered By: Mariann Lynn on 07-11-2022 Calcium [Mass/Vol] 10.8 mg/dL 8.6-10.3 [facility] Carbon dioxide, total [Moles /volume] in Serum or PlasmaOrdered By: Mariann Lynn on 07-11-2022 CO2 [Moles/Vol] 28.0 mmol/L 21.0-31.0 [facility] Chloride [Moles/volume] in S kathy or PlasmaOrdered By: Mariann Lynn on 07-11-2022 Chloride [Moles/Vol] 102 mmol/L 98-107 [facility] Cholesterol [Mass/volume] in Serum or PlasmaOrdered By: Mariann Lynn on 07-11-2022 Cholesterol [Mass/Vol] 159 mg/dL 140-200 [facility] Comment on above: Chol less than 200 m g/dl low riskChol 201-239 mg/dl borderline riskChol 240 mg/dl and greater high risk Cholesterol in LDL Calc [Mas s/Vol]Ordered By: Mariann Lynn on 07-11-2022 Cholesterol in LDL [Mass/Vol] 73 mg/dL 0-100 [facility] Comment on above: LDL ATP III CLASSIFI CATIONLDL less than 100 mg/dL OptimalLDL 100-129 mg/dL Near or above optimalLDL 130-159 mg/dL Borderline highLDL 160-189 mg/dL HighLDL greater than 189 mg/dL Very high Cholesterol in VLDL Calc [Ma ss/Vol]Ordered By: Mariann Lynn on 07-11-2022 Cholesterol in VLDL [Mass/Vol] 31 mg/dL [facility] Creatinine [Mass/volume] in Serum or PlasmaOrdered By: Mariann Lynn on 07-11-2022 Creatinine [Mass/Vol] 0.87 mg/dL 0.60-1.20 [facility] Creatinine [Mass/volume] in UrineOrdered By: Mariann Lynn on 07-11-2022 Creatinine (U) [Mass/Vol] 99.6 mg/dL [facility] Comment on above: No reference range e stablished Eosinophils Auto (Bld) [#/Vo l]Ordered By: Mariann Lynn on 07-11-2022 Eosinophils (Bld) [#/Vol] 0.2 10*3/uL 0.0-0.45 [facility] Eosinophils/100 WBC Auto (Bl d)Ordered By: Mariann Lynn on 07-11-2022 Eosinophils/100 WBC (Bld) 4.0 % . [facility] Erythrocyte distribution wid th Auto (RBC) [Ratio]Ordered By: Mariann Lynn on 07-11-2022 Erythrocyte distribution width (RBC) [Ratio] 13.5 % 11.9-15.3 [facility] Globulin Calc (S) [Mass/Vol] Ordered By: Mariann Lynn on 07-11-2022 Globulin (S) [Mass/Vol] 2.7 g/dL [facility] Glucose [Mass/volume] in Ser um or PlasmaOrdered By: Mariann Lynn on 07-11-2022 Glucose [Mass/Vol] 72 mg/dL 74-109 [facility] Comment on above: ADA recommended refe rence rangeRandom Glucose Reference Range is dependent on time and content of last meal. Glucose of more than 200 mg/dL in a nonstressed, ambulatory subject supports the diagnosis of Diabetes Mellitus. Hematocrit Auto (Bld) [Volum e fraction]Ordered By: Mariann Lynn on 07-11-2022 Hematocrit (Bld) [Volume fraction] 39.2 % 34.0-46.4 [facility] Hemoglobin [Mass/volume] in BloodOrdered By: Mariann Lynn on 07-11-2022 Hemoglobin (Bld) [Mass/Vol] 13.0 g/dL 11.8-15.4 [facility] Laboratory - Chemistry and C hemistry - challengeOrdered By: Mariann Lynn on 07-11-2022 GFR/1.73 sq M.predicted MDRD (S/P/Bld) [Vol rate/Area] mL/min/{1.73_m2} [facility] Leukocytes [#/volume] correc venu for nucleated erythrocytes in Blood by Automated counOrdered By: Mariann Lynn on 07-11-2022 WBC corrected for nucl RBC Auto (Bld) [#/Vol] 5.8 10*3/uL 3.8-11.6 [facility] Lymphocytes Auto (Bld) [#/Vo l]Ordered By: Mariann Lynn on 07-11-2022 Lymphocytes (Bld) [#/Vol] 1.9 10*3/uL 1.00-4.8 [facility] Lymphocytes/100 WBC Auto (Bl d)Ordered By: Mariann Lynn on 07-11-2022 Lymphocytes/100 WBC (Bld) 32.2 % . [facility] MCH Auto (RBC) [Entitic mass ]Ordered By: Mariann Lynn on 07-11-2022 MCH (RBC) [Entitic mass] 32.0 pg 24.7-34.3 [facility] MCHC Auto (RBC) [Mass/Vol]Or dered By: Mariann Lynn on 07-11-2022 MCHC (RBC) [Mass/Vol] 33.2 g/dL 32.0-35.0 [facility] MCV Auto (RBC) [Entitic vol] Ordered By: Mariann Lynn on 07-11-2022 MCV (RBC) [Entitic vol] 96.3 fL 80-100 [facility] Microalbumin [Mass/volume] i n UrineOrdered By: Mariann Lynn on 07-11-2022 Albumin DL <= 20 mg/L (U) [Mass/Vol] 1.4 mg/dL 0.0-1.8 [facility] Monocytes Auto (Bld) [#/Vol] Ordered By: Mariann Lynn on 07-11-2022 Monocytes (Bld) [#/Vol] 0.6 10*3/uL 0.0-0.8 [facility] Monocytes/100 WBC Auto (Bld) Ordered By: Mariann Lynn on 07-11-2022 Monocytes/100 WBC (Bld) 9.6 % . [facility] Neutrophils Auto (Bld) [#/Vo l]Ordered By: Mariann Lynn on 07-11-2022 Neutrophils (Bld) [#/Vol] 3.1 10*3/uL 1.8-7.7 [facility] Neutrophils/100 WBC Auto (Bl d)Ordered By: Mariann Lynn on 07-11-2022 Neutrophils/100 WBC (Bld) 53.8 % . [facility] No Panel InformationOrdered By: Mariann Lynn on 07-11-2022 Pharmacy Creatinine Clearance (Chem N/A [facility] Nucleated erythrocytes [Pres ence] in Blood by Automated countOrdered By: Mariann Lynn on 07-11-2022 Nucleated RBC Auto Ql (Bld) 0.1 /100{WBC} 0-0.5 [facility] Platelet mean volume Auto (B ld) [Entitic vol]Ordered By: Mariann Lynn on 07-11-2022 Platelet mean volume (Bld) [Entitic vol] 8.1 fL 6.3-10.7 [facility] Platelets Auto (Bld) [#/Vol] Ordered By: Mariann Lynn on 07-11-2022 Platelets (Bld) [#/Vol] 236 10*3/uL 150-450 [facility] Potassium [Moles/volume] in Serum or PlasmaOrdered By: Mariann Lynn on 07-11-2022 Potassium [Moles/Vol] 4.5 mmol/L 3.5-5.1 [facility] Protein [Mass/volume] in Ser um or PlasmaOrdered By: Mariann Lynn on 07-11-2022 Protein [Mass/Vol] 7.3 g/dL 6.4-8.9 [facility] RBC Auto (Bld) [#/Vol]Ordere d By: Mariann Lynn on 07-11-2022 RBC (Bld) [#/Vol] 4.07 10*6/uL 3.60-5.00 [facility] Serum or plasma albumin/glob ulin mass ratioOrdered By: Mariann Lynn on 07-11-2022 Albumin/Globulin [Mass ratio] 1.7 {ratio} [facility] Serum or plasma anion gap de terminationOrdered By: Mariann Lynn on 07-11-2022 Anion gap [Moles/Vol] 13.5 mmol/L 6.0-15.0 [facility] Serum or plasma high density lipoprotein (HDL) cholesterol measurementOrdered By: Mariann Lynn on 07-11-2022 Cholesterol in HDL [Mass/Vol] 55 mg/dL 35-85 [facility] Comment on above: HDL CHOL ATP-III CLA SSIFICATION Cardiovascular RiskHDL > or equal to 60 mg/dL LOWHDL < 40 mg/dL HIGH Serum or plasma total choles terol/high density lipoprotein (HDL) cholesterol mass ratOrdered By: Mariann Lynn on 07-11-2022 Cholesterol.total/Chol esterol in HDL [Mass ratio] 2.9 {ratio} <5.0 [facility] Sodium [Moles/volume] in Ser um or PlasmaOrdered By: Mariann Lynn on 07-11-2022 Sodium [Moles/Vol] 139 mmol/L 136-145 [facility] Thyrotropin [Units/volume] i n Serum or PlasmaOrdered By: Mariann Lynn on 07-11-2022 TSH Qn 0.85 m[IU]/L 0.45-5.33 [facility] Thyroxine (T4) free [Mass/vo lume] in Serum or PlasmaOrdered By: Mariann Sky on 07-11-2022 Free T4 [Mass/Vol] 0.90 ng/dL 0.61-1.12 [facility] Triglyceride [Mass/volume] i n Serum or PlasmaOrdered By: Mariann Lynn on 07-11-2022 Triglyceride [Mass/Vol] 156 mg/dL 0-149 [facility] Comment on above: TRIG ATP III CLASSIF ICATIONTRIG less than 150 mg/dL NormalTRIG 150-199 mg/dL Borderline highTRIG 200-500 mg/dL High TRIG greater than 500 mg/dL Very highStandard traceable to the Center for Disease Conrtrol and Prevention (CDC) test method. Urate [Mass/volume] in Serum or PlasmaOrdered By: Mariann Lynn on 07-11-2022 Urate [Mass/Vol] 4.8 mg/dL 2.3-6.6 [facility] Urea nitrogen [Mass/volume] in Serum or PlasmaOrdered By: Mariann Lynn on 07-11-2022 Urea nitrogen [Mass/Vol] 21 mg/dL 7-25 [facility] Urine microalbumin/creatinin e mass ratioOrdered By: Mariann Lynn on 07-11-2022 Albumin/Creatinine DL <= 20 mg/L (U) [Mass ratio] 14.0 mg/g 0.0-30.0 [facility] Comment on above: 30-300 mg/g indicate s an increased risk for diabetic nephropathy. Greater than 300 mg/g is consistent with clinical nephropathy. (Am. J. Kidney Disease 1995, 25:107) WBC Auto (Bld) [#/Vol]Ordere d By: Mariann Lynn on 07-11-2022 WBC (Bld) [#/Vol] 5.8 10*3/uL 3.8-11.6 [facility] XR CHEST 1 Von 08-03-2020 XR CHEST [...] by: GIGI CHATTERJEE Date: 2020-08-03 16:52 Normal [facility] Vital Signs Date Time Vital Sign Value Performing Clinician Noreen estrada 09-22-2024 13:56-0400 Body mass index (BMI) [Ratio] 26.53 kg/m2 Christopher Edwige DO Work Phone: [facility] 09-22-2024 13:56-0400 Body [facility] 76.84 [facility] Work Phone: [facility] 09-22-2024 13:56-0400 Diastolic blood pressure 78 mm[Hg] [facility] Work Phone: [facility] 09-22-2024 13:56-0400 Heart rate 79 /min [facility] Work Phone: [facility] 09-22-2024 13:56-0400 SaO2% (BldA) [Mass fraction] 94 % [facility] Work Phone: [facility] 09-22-2024 13:56-0400 Systolic blood pressure 150 mm[Hg] Christopher Edwige DO Work Phone: [facility] 07-22-2024 11:05-0400 Body mass index (BMI) [Ratio] 26.34 kg/m2 Mariann Orellana-Gloster DO Work Phone: [facility] 07-22-2024 11:05-0400 Body weight 76.3 kg Mariann Orellana-Gloster DO Work Phone: [facility] 07-22-2024 11:05-0400 Diastolic blood pressure 76 mm[Hg] Mariann Orellana-Gloster DO Work Phone: [facility] 07-22-2024 11:05-0400 Heart rate 84 /min Mariann Orellana-Jose Daniel DO Work Phone: [facility] 07-22-2024 11:05-0400 SaO2% (BldA) [Mass fraction] 98 % Mariann Orellana-Gloster DO Work Phone: [facility] 07-22-2024 11:05-0400 Systolic blood pressure 130 mm[Hg] Mariann Orellana-Gloster DO Work Phone: [facility] 01-29-2024 11:54-0400 Body height 165.1 cm Pacc 1 Work Phone: [facility] 01-29-2024 11:54-0400 Body mass index (BMI) [Ratio] 28.62 kg/m2 Pacc 1 Work Phone: [facility] 01-29-2024 11:54-0400 Body temperature 98.49 [degF] Pacc 1 Work Phone: [facility] 01-29-2024 11:54-0400 Body weight 78 kg Pacc 1 Work Phone: [facility] 01-29-2024 11:54-0400 Diastolic blood pressure 72 mm[Hg] Pacc 1 Work Phone: [facility] 01-29-2024 11:54-0400 Heart rate 75 /min Pacc 1 Work Phone: [facility] 01-29-2024 11:54-0400 Respiratory rate 16 /min Pacc 1 Work Phone: [facility] 01-29-2024 11:54-0400 SaO2% (BldA) [Mass fraction] 96 % Pacc 1 Work Phone: [facility] 01-29-2024 11:54-0400 Systolic blood pressure 157 mm[Hg] Pacc 1 Work Phone: [facility] 01-09-2024 10:46-0400 Body mass index (BMI) [Ratio] 27.22 kg/m2 Mariann Orellana-Gloster DO Work Phone: [facility] 01-09-2024 10:46-0400 Body weight 78.83 kg Mariann Orellana-Gloster DO Work Phone: [facility] 01-09-2024 10:46-0400 Diastolic blood pressure 62 mm[Hg] Mariann Orellana-Gloster DO Work Phone: [facility] 01-09-2024 10:46-0400 Heart rate 83 /min Mariann Orellana-Gloster DO Work Phone: [facility] 01-09-2024 10:46-0400 SaO2% (BldA) [Mass fraction] 99 % Mariann Orellana-Gloster DO Work Phone: [facility] 01-09-2024 10:46-0400 Systolic blood pressure 116 mm[Hg] Mariann Orellana-Gloster DO Work Phone: [facility] 12-04-2022 19:30-0400 Diastolic blood pressure 74 mm[Hg] DO Mariann Orellana-Gloster Work Phone: [facility] 12-04-2022 19:30-0400 Heart rate 88 /min DO Mariann Orellana-Gloster Work Phone: [facility] 12-04-2022 19:30-0400 Respiratory rate 16 /min DO Mariann Orellana-Gloster Work Phone: [facility] 12-04-2022 19:30-0400 SaO2% (BldA) [Mass fraction] 99 % DO Mariann Orellana-Gloster Work Phone: [facility] 12-04-2022 19:30-0400 Systolic blood pressure 155 mm[Hg] DO Mariann Orellana-Gloster Work Phone: [facility] 12-04-2022 15:58-0400 Body height 165.1 cm DO Mariann Orellana-Gloster Work Phone: [place] [id number] 15:58-0400 Body temperature 97.5 [degF] DO Mariann Elizondoaver-Gloster Work Phone: [facility] 12-04-2022 15:58-0400 Body weight 75.2 kg DO Mariann Elizondoaver-Gloster Work Phone: [facility] Encounters Encounter Date Encounter Type Care Provider Facility Start: 09-22-2024 End: 09-22-2024 Bamboo flowsheet Christopher Edwige DO Work Phone: [facility] Start: 09-22-2024 End: 09-22-2024 Bamboo flowsheet Christopher Edwige DO Work Phone: [facility] Start: 09-22-2024 End: 09-22-2024 Office outpatient visit 25 minutes Christopher Edwige DO Work Phone: [facility] Comment on above: Temporal lobe epilep sy (CMS/HCC) (Primary Dx); Psychogenic nonepileptic seizure; MCI (mild cognitive impairment) Start: 09-22-2024 End: 09-22-2024 ambulatory MARGARETBERENICE EDWIGE Not Available Start: 08-20-2024 End: 08-20-2024 Telephone encounter Estelaadore Delgado CRICKET Work Phone: [facility] Start: 07-24-2024 End: 07-24-2024 Telephone encounter Estelaadore Delgado CRICKET Work Phone: [facility] Start: 07-22-2024 End: 07-22-2024 Office outpatient visit 25 minutes Mariann Dale Orellana-Gloster DO Work Phone: [facility] Comment on above: Medicare annual well ness visit, subsequent (Primary Dx); ACP (advance care planning); Hypothyroidism (acquired) (CMS/HCC); Type 2 diabetes mellitus with peripheral neuropathy (CMS/HCC); Conversion disorder with attacks or seizures (CMS/HCC); Idiopathic chronic gout of multiple sites without tophus; Temporal lobe epilepsy (CMS/HCC); Mixed hyperlipidemia (CMS/HCC); Microalbuminuric diabetic nephropathy (CMS/HCC) Start: 07-22-2024 End: 07-22-2024 Patient encounter procedure Mariann Kooy DO Work Phone: [facility] Work Phone: Start: 07-22-2024 End: 07-22-2024 ambulatory MARIANN LYNN Not Available Start: 07-09-2024 End: 07-09-2024 Telephone encounter Jigar KEMPEVUE Start: 07-08-2024 End: 07-08-2024 Telephone encounter Mariann Orellana-Gloster DO Work Phone: [facility] Comment on above: [facility] lab order [...] Start: 02-06-2024 End: 02-06-2024 ambulatory VICTORINO REMY Facility:[facility] Start: 01-29-2024 End: 01-29-2024 Patient encounter procedure Eye Measurements Work Phone: Ophthalmology Comment on above: Combined forms of ag e-related cataract of right eye; Combined forms of age-related cataract of left eye Start: 01-29-2024 End: 01-29-2024 Admission to establishment [facility] Work Phone: Pre Anesthesia Start: 01-29-2024 End: 01-29-2024 ambulatory VICTORINO REMY Facility:[facility] Start: 01-29-2024 End: 01-29-2024 Anesthesia consultation [facility] 1 Work Phone: Pre Anesthesia Comment on above: Pre-op evaluation (P rimary Dx); Psychogenic nonepileptic seizure; Temporal lobe epilepsy (HCC); Hyperlipidemia, unspecified hyperlipidemia type; Vitamin B12 deficiency; Type 2 diabetes mellitus without complication, without long-term current use of insulin (HCC); Hypothyroidism (acquired); Anxiety; Mild cognitive impairment of uncertain or unknown etiology Start: 01-29-2024 Encounter for other preprocedural examination VICTORINOANNA ALYLEY [facility] Start: 01-29-2024 End: 01-29-2024 Preprocedural examination done [facility] 1 Work Phone: [facility] Work Phone: Start: 01-16-2024 End: 01-16-2024 Telephone encounter Estela HARLEY Work Phone: [facility] Start: 01-16-2024 End: 01-16-2024 Patient encounter procedure [facility] Ann HARLEY Comment on above: Sensorineural hearin g loss, bilateral (Primary Dx) Start: 01-16-2024 End: 01-16-2024 ambulatory MARIANN LYNN Not Available Start: 01-15-2024 End: 01-15-2024 Patient encounter procedure Estela HARLEY Work Phone: [facility] Comment on above: Sensorineural hearin g loss, bilateral (Primary Dx); Tinnitus, bilateral Start: 01-15-2024 End: 01-15-2024 ambulatory ESTELA DELGADO Not Available Start: 01-15-2024 End: 01-15-2024 Bamboo flowsheet Estela Delgado AUD Work Phone: [facility] Start: 01-15-2024 End: 01-15-2024 Bamboo flowsheet Estela Delgado AUD Work Phone: [facility] Start: 01-09-2024 End: 01-09-2024 Office outpatient visit 25 minutes Mariann Lynn DO Work Phone: [facility] Comment on above: Type 2 diabetes xavier itus with peripheral neuropathy (CMS/HCC) (Primary Dx); Anxiety; Hypothyroidism (acquired) (CMS/HCC); Mixed hyperlipidemia (CMS/HCC); Temporal lobe epilepsy (CMS/HCC); Psychogenic nonepileptic seizure (CMS/HCC); Cortical age-related cataract of both eyes Start: 01-09-2024 End: 01-09-2024 ambulatory MARIANN LYNN Not Available Start: 01-03-2024 End: 01-03-2024 ambulatory KEENAN WHITFIELD Facility:[facility] Start: 01-03-2024 End: 01-03-2024 Patient encounter procedure [...] End: 11-22-2023 Patient encounter procedure DO Mariann Lynn [facility] Work Phone: Start: 11-22-2023 End: 11-22-2023 ambulatory DO Mariann Orellana-Gloster Work Phone: [facility] Work Phone: Start: 10-24-2023 End: 10-24-2023 ambulatory SEBASTIAN HICKS Not Available Start: 12-04-2022 End: 12-04-2022 Emergency department patient visit DO Mariann Orellana-Gloster Work Phone: [facility] Work Phone: Start: 11-16-2022 End: 11-16-2022 ambulatory DO Mariann Orellana-Gloster Work Phone: [facility] Work Phone: Start: 11-16-2022 End: 11-16-2022 Patient encounter procedure DO Mariann Orellana-Gloster Work Phone: [facility] Work Phone: Start: 07-11-2022 End: 07-11-2022 ambulatory DO Mariann Orellana-Gloster Work Phone: [facility] Work Phone: Start: 07-11-2022 End: 07-11-2022 Patient encounter procedure DO Mariann Orellana-Gloster Work Phone: [facility] Main Outing Work Phone: Start: 08-03-2020 End: 08-03-[address] HAYDE BERGER Facility:[facility]1 Procedures Date Procedure Procedure Detail Performing Clinician Start: 01-29-2024 ASCAN ONLY - DIAGNOS TIC OU (BOTH EYES) Victorino Remy MD Work Phone: Start: 01-29-2024 IOL BIOMETRY W/ IOL CALC OU (BOTH EYES) Victorino Remy MD Work Phone: Start: 01-15-2024 AUDITORY FUNCTION TESTS Estela HARLEY Work Phone: Start: 01-09-2024 Hemoglobin glycosylated a1c Mariann Dale Oleksandr DO Work Phone: Start: 01-03-2024 Computerized ophthal breann imaging retina Victorino Remy MD Work Phone: Start: 01-03-2024 Computerized corneal topography uni/bi Victorino Remy MD Work Phone: Start: 11-22-2023 Dual energy X-ray absorptiometry DO Mariann Lynn Work Phone: Start: 11-22-2023 Screening mammograph y of bilateral breasts DO Mariann Lynn Work Phone: Start: 12-04-2022 CT of abdomen and pe lvis without contrast DO Mariann Lynn Work Phone: Start: 12-04-2022 Plain chest X-ray DO Sa raghav Lynn Work Phone: Start: 11-16-2022 Screening mammograph y of bilateral breasts DO Mariann Lynn Work Phone: Plan of Treatment Date Care Activity Detail Author Start: 07-08-2031 Urine microalbumin profile DTaP,Tdap,Td Vaccine (2 - Td or Tdap) [facility] Start: 01-02-2026 Glaucoma screening Diabetes: Retinopathy Screening [facility] Start: 07-24-2025 Screening for malignant neoplasm of colon [facility] Start: 07-22-2025 Medicare Annual Wellness (AWV) Medicare Annual Wellness (AWV) [facility] Start: 07-18-2025 Urine screening for protein Diabetes: Urine Protein Screening [facility] Start: 01-20-2025 End: 01-20-2025 Patient encounter procedure 01/20/2025 10:00 AM EDT [facility] [address] [place] [id number] Mariann Lynn, DO [address] [place] [address] [facility] Start: 01-05-2025 Pneumococcal Vaccine: 65+ Years (2 of 2 - PPSV23 or PCV20) Pneumococcal Vaccine: 65+ Years (2 of 2 - PPSV23 or PCV20) [facility] Comment on above: Postponed from 08/23/2021 (Patient Refus ed) Start: 01-05-2025 Pneumococcal Vaccine: 65+ Years (2 of 2 - PPSV23) Pneumococcal Vaccine: 65+ Years (2 of 2 - PPSV23) [facility] Comment on above: Postponed from 08/23/2021 (Patient Refus ed) Start: 01-02-2025 End: 06-26-2025 ASCAN ONLY - DIAGNOSTIC OU (BOTH EYES) ASCAN ONLY - DIAGNOSTIC OU (BOTH EYES) OPHT Imaging Routine Combined forms of age-related cataract of right eye Combined forms of age-related cataract of left eye Expected: 01/02/2025, Expires: 06/26/2025 [facility] Comment on above: Expected: 01/02/2025, Expires: Start: 01-02-2025 Glaucoma screening Dilated Retinal Exam [facility] Start: 01-02-2025 End: 06-26-2025 IOL BIOMETRY W/ IOL CALC OU (BOTH EYES) IOL BIOMETRY W/ IOL CALC OU (BOTH EYES) [facility] Imaging Routine Combined forms of age-related cataract of right eye Combined forms of age-related cataract of left eye Expected: 01/02/2025, Expires: 06/26/2025 [facility] Comment on above: Expected: 01/02/2025, Expires: Start: 11-25-2024 End: 11-25-2024 Patient encounter procedure 11/25/2024 1:45 PM EDT Office Visit [facility] [address] [id number] Guille Ruiz DO [address] [facility] [address] [place] [address] [facility] Start: 10-18-2024 Hemoglobin A1c measurement Diabetes: Hemoglobin A1C [facility] Start: 09-22-2024 End: 09-22-2024 Patient encounter procedure [facility] RAMIRE[facility] Comment on above: Arrived Start: 09-04-2024 End: 09-04-2024 Patient encounter procedure [facility] [address] [facility] Start: 07-22-2024 End: 07-22-2024 Patient encounter procedure 07/22/2024 10:30 AM EDT Office Visit [facility] [address] [place] [address] Mariann Lynn, DO [address] [place] [address] [facility] Start: 07-10-2024 Urine screening for protein Diabetes: Urine Protein Screening [facility] Start: 07-09-2024 Medicare Annual Wellness (AWV) Medicare Annual Wellness (AWV) [facility] Start: 07-08-2024 End: 07-08-2025 25-hydroxyvitamin D3 [Mass/volume] in Serum or Plasma Vitamin D 25 hydroxy Total Lab Routine Vitamin D deficiency Expected: 07/08/2024 (Approximate), Expires: 07/08/2025 [facility] Comment on above: Expected: 07/08/2024 (Approximate), Expi res: 07/08/2025 Start: 07-08-2024 End: 07-08-2025 CBC panel - Blood by Automated count CBC Lab Routine Hypothyroidism (acquired) ([facility]) Medication monitoring encounter Expected: 07/08/2024 (Approximate), Expires: 07/08/2025 [facility] Comment on above: Expected: 07/08/2024 (Approximate), Expi res: 07/08/2025 Start: 07-08-2024 End: 07-08-2025 Cobalamin (Vitamin B12) [Mass/volume] in Serum or Plasma Vitamin B12 Lab Routine Vitamin B12 deficiency Expected: 07/08/2024 (Approximate), Expires: 07/08/2025 [facility] Comment on above: Expected: 07/08/2024 (Approximate), Expi res: 07/08/2025 Start: 07-08-2024 End: 07-08-2025 Comprehensive metabolic 2000 panel - Serum or Plasma Comprehensive metabolic panel Lab Routine Mixed hyperlipidemia ([facility]) Type 2 diabetes mellitus with peripheral neuropathy ([facility]/HCC) Expected: 07/08/2024 (Approximate), Expires: 07/08/2025 [facility] Comment on above: Expected: 07/08/2024 (Approximate), Expi res: 07/08/2025 Start: 07-08-2024 Hemoglobin A1c measurement HbA1C [facility] Start: 07-08-2024 End: 07-08-2025 Hemoglobin A1c/Hemoglobin.total in Blood Hemoglobin A1c Lab Routine Type 2 diabetes mellitus with peripheral neuropathy ([facility]/HCC) Expected: 07/08/2024 (Approximate), Expires: 07/08/2025 [facility] Comment on above: Expected: 07/08/2024 (Approximate), Expi res: 07/08/2025 Start: 07-08-2024 End: 07-08-2025 Lipid 1996 panel - Serum or Plasma Lipid panel Lab Routine Mixed hyperlipidemia ([facility]) Type 2 diabetes mellitus with peripheral neuropathy ([facility]) Expected: 07/08/2024 (Approximate), Expires: 07/08/2025 [facility] Comment on above: Expected: 07/08/2024 (Approximate), Expi res: 07/08/2025 Start: 07-08-2024 End: 07-08-2025 Microalbumin/Creatinine panel in random Urine Microalbumin / creatinine urine ratio Lab Routine Type 2 diabetes mellitus with peripheral neuropathy ([facility] [facility] Expected: 07/08/2024, Expires: 07/08/2025 [facility] Comment on above: Expected: 07/08/2024, Expires: Start: 07-08-2024 End: 07-08-2025 Thyrotropin [Units/volume] in Serum or Plasma TSH Lab Routine Hypothyroidism (acquired) ([facility]) Expected: 07/08/2024 (Approximate), Expires: 07/08/2025 [facility] Work Phone: Comment on above: Expected: 07/08/2024 (Approximate), Expi res: 07/08/2025 Start: 07-08-2024 End: 07-08-2025 Thyroxine (T4) free [Mass/volume] in Serum or Plasma T4, free Lab Routine Hypothyroidism (acquired) ([facility]) Expected: 07/08/2024 (Approximate), Expires: 07/08/2025 [facility] Comment on above: Expected: 07/08/2024 (Approximate), Expi res: 07/08/2025 Start: 07-08-2024 End: 07-08-2025 Urate [Mass/volume] in Serum or Plasma Uric acid Lab Routine Idiopathic chronic gout of multiple sites without tophus Expected: 07/08/2024 (Approximate), Expires: 07/08/2025 [facility] Comment on above: Expected: 07/08/2024 (Approximate), Expi res: 07/08/2025 Start: 04-09-2024 Hemoglobin A1c measurement Diabetes: Hemoglobin A1C [facility] Start: 03-04-2024 End: 03-04-2024 Patient encounter procedure [facility] Start: 02-20-2024 End: 02-20-2024 Admission to same day surgery center 02/20/2024 9:40 AM EDT - 02/20/2024 10:15 AM EDT Surgery Ambulatory Surgery [address] [place] [address] Victorino Remy MD [address] [facility] [address] PHACOEMULSIFICATION CATARACT IMPLANT INTRAOCULAR LENS W/O ENDOSCOPIC CYCLOPHOTOCOAGULATION Ambulatory Surgery Comment on above: PHACOEMULSIFICATION CATARACT IMPLANT INT RAOCULAR LENS W/O ENDOSCOPIC CYCLOPHOTOCOAGULATION Start: 02-20-2024 End: 02-20-2024 Oph bmtry prtl coher intrfrmtry io lens pwr marine OPHTHALMIC BIOMETRY BY PARTIAL COHERENCE INTERFEROMETRY W/INTRAOCULAR LENS POWER CALCULATION Combined forms of age-related cataract of left eye 02/20/2024 9:40 AM EDT [facility] Start: 02-20-2024 Subsequent hospital visit by physician 02/20/2024 9:40 AM EDT Hospital Encounter Ambulatory Surgery [address] [place] [address] Victorino Remy MD [address] [facility] [place] [address] Combined forms of age-related cataract of left eye [H25.812] Ambulatory Surgery Comment on above: Combined forms of age-related cataract o f left eye [H25.812] Start: 02-20-2024 End: 02-20-2024 Xcapsl ctrc rmvl insj io lens prosth w/o ecp PHACOEMULSIFICATION CATARACT IMPLANT INTRAOCULAR LENS W/O ENDOSCOPIC CYCLOPHOTOCOAGULATION Combined forms of age-related cataract of left eye 02/20/2024 9:40 AM EDT [facility] DOYLE Start: 02-06-2024 End: 02-06-2024 Admission to same day surgery center 02/06/2024 11:10 AM EDT - 02/06/2024 11:45 AM EDT Surgery Ambulatory Surgery [address] [place] [address] Victorino Remy MD [address] [facility] [place] [address] PHACOEMULSIFICATION CATARACT IMPLANT INTRAOCULAR LENS W/O ENDOSCOPIC [...] AM EDT Hospital Encounter Ambulatory Surgery [address] [place] [address] Victorino Remy MD [address] [facility] [place] [address] Combined forms of age-related cataract of right [...] 10:25 AM EDT Surgery Ambulatory Surgery [address] [place] [address] Victorino Remy MD [address] [facility] [place] [address] PHACOEMULSIFICATION CATARACT IMPLANT INTRAOCULAR LENS W/O ENDOSCOPIC [...] AM EDT Hospital Encounter Ambulatory Surgery [address] [place] [address] Victorino Remy MD [address] [facility] [place] [address] Combined forms of age-related cataract of right eye [H25.811] Ambulatory Surgery Comment on above: Combined forms of age-related cataract o f right eye [H25.811] Start: 02-06-2024 End: 02-06-2024 Xcapsl ctrc rmvl insj io lens prosth w/o ecp PHACOEMULSIFICATION CATARACT IMPLANT INTRAOCULAR LENS W/O ENDOSCOPIC CYCLOPHOTOCOAGULATION Combined forms of age-related cataract of right eye 02/06/2024 9:50 AM EDT [facility] YANIRA Start: 01-29-2024 End: 01-29-2024 Patient encounter procedure 01/29/2024 1:00 PM EDT Office Visit [facility] [address] [facility] [address] CATARACT SURGERY RIGHT THEN LEFT [facility] Ophthalmology Comment on above: CATARACT SURGERY RIGHT THEN LEFT KATIANA Start: 01-29-2024 End: 01-29-2024 Admission to same day surgery center 01/29/2024 12:20 PM EDT PAT Pre Anesthesia [address] [facility] [place] [address] 1, P[place] [address] [facility] [facility] [place] [address] CATARACT SURGERY RIGHT THEN LEFT KATIANA Pre Anesthesia Comment on above: CATARACT SURGERY RIGHT THEN LEFT KATIANA Start: 01-16-2024 End: 01-16-2024 Patient encounter procedure 01/16/2024 10:00 AM EDT Office Visit [facility] [address] [facility] [place] [address] [facility] Start: 01-15-2024 End: 01-15-2024 Patient encounter procedure 01/15/2024 2:30 PM EDT Office Visit [facility] [address] [place] [address] Estela Delgado S, AUD [address] [facility] [place] [place] [address] Arrived [facility] Comment on above: Arrived Start: 01-14-2024 End: 06-23-2025 CORNEAL TOPOGRAPHY ATLAS OU (BOTH EYES) CORNEAL TOPOGRAPHY ATLAS OU (BOTH EYES) [facility] Imaging Routine Combined forms of age-related cataract of right eye Combined forms of age-related cataract of left eye Expected: 01/14/2024, Expires: 06/23/2025 [facility] Work Phone: Comment on above: Expected: 01/14/2024, Expires: Start: 01-14-2024 End: 06-23-2025 CORNEAL TOPOGRAPHY PENTACAM OU (BOTH EYES) CORNEAL TOPOGRAPHY PENTACAM OU (BOTH EYES) [facility] Imaging Routine Combined forms of age-related cataract of right eye Combined forms of age-related cataract of left eye Expected: 01/14/2024, Expires: 06/23/2025 [facility] Comment on above: Expected: 01/14/2024, Expires: Start: 01-10-2024 Hemoglobin A1c measurement HbA1C [facility] Start: 01-06-2024 Covid-19 Vaccine ( season) Covid-19 Vaccine () [facility] Start: 01-06-2024 Influenza vaccination Influenza Vaccine (#1) [facility] Start: 05-07-2023 Advance Directive Discussion Advance Directive Discussion [facility] Start: 2023 RSV Vaccine (1 - 1-dose 75+ series) RSV Vaccine (1 - 1-dose 75+ series) [facility] Start: 01-05-2023 Covid-19 Vaccine ( season) Covid-19 Vaccine ( season) [facility] Start: 12-04-2022 Bacteria identified in Blood by Culture Blood Culture [facility] Start: 12-04-2022 Bacteria identified in Urine by Culture Urine Culture [facility] Start: 07-11-2022 [facility] Start: 08-23-2021 Pneumococcal Vaccine: 65+ (2 of 2 - PPSV23 or PCV20) Pneumococcal Vaccine: 65+ (2 of 2 - PPSV23 or PCV20) [facility] Start: 2008 RSV Vaccine (1 - 1-dose 60+ series) RSV Vaccine (1 - 1-dose 60+ series) [facility] Start: 1998 Shingrix Vaccine (1 of 2) Shingrix Vaccine (1 of 2) [facility] Start: 1993 Screening for malignant neoplasm of colon [facility] Start: 1966 Annual PCP Team Chronic Disease Visit Annual PCP Team Chronic Disease Visit [facility] Start: 1966 Anxiety Screening Anxiety Screening [facility] Start: 1966 Depression Screening Depression Screening [facility] Start: 1966 Hepatitis B surface antibody level LDL Cholesterol [facility] Start: 1966 Hepatitis C screening Hepatitis C Screening [facility] Start: 1958 Diabetic foot examination Diabetic Foot Exam [facility] Start: 1958 Hepatitis B screening Urine Albumin:Creatinine Ratio [facility] Start: 1948 Screening for malignant neoplasm of colon [facility] Glucose measurement estimated from glycated hemoglobin [facility] Hemoglobin A1c/Hemoglobin.total in Blood [facility] Patient Education Vertebral Comp ression Fracture ED Upper Back Pain ED [facility] Work Phone: Patient referral [facility] Work Phone: Immunizations Immunization Date Immunization Notes Care Provider Fa cility 07-07-2021 tetanus toxoid, redu tash diphtheria toxoid, and acellular pertussis vaccine, adsorbed DO Mariann Lynn Work Phone: [facility] 06-28-2021 pneumococcal conjuga te vaccine, 13 valent Estela Delgado AUD Work Phone: [facility] 06-02-2020 Pfizer Purple Cap SARS-CoV-2 Vaccination Estela Delgado AUD Work Phone: [facility] 03-11-2020 pneumococcal conjuga te vaccine, 13 valent Estela Delgado AUD Work Phone: [facility] Payers Date Payer Category Payer Medicaid [id number] 2022 Private Health Insurance [id number] 2022 Medicaid [id number] 2022 Self-pay [id number] 2013 Medicare [id number] 1959 Medicare [id number] 1959 Private Health Insurance [id number] 1948 Unknown [id number] 2.16.84 [id number] 1948 Unknown [id number] 2.16.84 [id number] 1948 Unknown [id number] 2.16.84 [id number] 1948 Unknown [id number] 2.16.84 [id number] 1948 Unknown [id number] 2.16.84 [id number] 1948 Unknown [id number] 2.16.84 [id number] 1948 Unknown [id number] 2.16.84 [id number] 1948 Unknown [id number] 2.16.84 [id number] 1948 Unknown [id number] 2.16.84 [id number] Unknown [id number] 2.16.8 [id number] Unknown [id number] 2.16.8 [id number] Unknown [id number] 2.16.8 [id number] Social History Date Type Detail Facility Start: 09-01-2021 End: 12-04-2022 Tobacco smoking status VAIS Never smoked tobacco (finding) [facility] Start: 1950 Sex Assigned At Female F [facility] Start: 12-04-2022 End: 01-03-2024 Tobacco use and exposure Smokeless tobacco non-user [facility] Start: 01-03-2024 End: 01-29-2024 Alcoholic beverage intake Ex-drinker (finding) [facility] Start: 01-03-2024 End: 07-22-2024 History of Social function [facility] Work Phone: Start: 01-03-2024 End: 07-22-2024 Tobacco use panel [facility] Work Phone: National Score (1-100), lower number is lower risk 63 [facility] Start: 1950 Sex assigned at Not on file [facility] Start: 01-09-2024 End: 07-22-2024 Alcoholic beverage intake Lifetime non-drinker (finding) [facility] Start: 11-16-2022 Alcohol Comment caffeine: 2-3 cups per day tea or hot chocolate [facility] Clinical Notes 01-03-2024 to 09-22-2024 Dao Gibbons, DO - 09/22/2024 2:00 PM EDTTelephone Encounter - Estela Delgado, AUD - 08/20/2024 12:34 PM EDTTelephone Encounter - Estela Delgado, AUD - 08/20/2024 12:34 PM EDT Note Date & Type Note Facility 09-22-2024 History of Present illness Narrative Images from the original note were not included. Chief Complaint: Seizures Subjective Eva Gallego, 74 y.o., female Patient presents today for a follow up for epilepsy. She continues on Lamictal and denies any missed doses. Patient is accompanied by Lauren her sister in law. Patient was last seen one year ago. She reports multiple, mild seizures since last visit. Patient reports she will feel something go through her body, this is most intense in her legs, so she will sit down. She states these are worse if someone scares her. Lauren reports when someone claps loudly this will break the seizure. Lauren reports one grand mal seizure in the last year. Review of Systems Constitutional: Negative for appetite change, fatigue and fever. Respiratory: Negative for cough, shortness of breath and wheezing. Cardiovascular: Negative for chest pain, palpitations and leg swelling. Gastrointestinal: Negative for abdominal pain, constipation, diarrhea and nausea. Musculoskeletal: Negative for arthralgias, gait problem and myalgias. Neurological: Negative for dizziness, tremors, numbness and headaches. Medication List Accurate as of September 22, 2024 2:20 PM. If you have any questions, ask your nurse or doctor. CONTINUE taking these medications Acetaminophen 500 MG capsule; Take 1 capsule (500 mg) by mouth every 8 (eight) hours if needed for mild pain or moderate pain atorvastatin 40 MG tablet; Commonly known as: Lipitor; TAKE 1 TABLET(40 MG) BY MOUTH IN THE MORNING Calcium Carb-Cholecalciferol 600-200 MG-UNIT tablet * Centrum Women tablet * OCUVITE ADULT 50+ PO cyclobenzaprine 5 MG tablet; Commonly known as: Flexeril; TAKE 1 TABLET(5 MG) BY MOUTH AT BEDTIME diclofenac sodium 1 % gel FLUoxetine 20 MG capsule; Commonly known as: PROzac; Take 1 capsule (20 mg) by mouth Daily lamoTRIgine 200 MG tablet; Commonly known as: LaMICtal; Take 1 tablet (200 mg) by mouth in the morning and 1 tablet (200 mg) before bedtime. levothyroxine 75 MCG tablet; Commonly known as: Synthroid, Levoxyl; Take 1 tablet (75 mcg) by mouth in the morning. Take before meals. loratadine 10 MG tablet; Commonly known as: Claritin; Take 1 tablet (10 mg) by mouth Daily LORazepam 0.5 MG tablet; Commonly known as: Ativan; One tablet the night before appointments and one tablet the day of appointments memantine 5 MG tablet; Commonly known as: Namenda; Take 1 tablet (5 mg) by mouth in the morning and 1 tablet (5 mg) before bedtime. metFORMIN 850 MG tablet; Commonly known as: Glucophage; Take 1 tablet (850 mg) by mouth in the morning and 1 tablet (850 mg) in the evening. Take with meals. naproxen 250 MG tablet; Commonly known as: Naprosyn; TAKE 1 TABLET BY MOUTH TWICE DAILY WITH FOOD OR MILK polyethylene glycol (PEG) 3350 powder; Commonly known as: Glycolax, Miralax * Sodium Fluoride 5000 Plus 1.1 % cream; Generic drug: Sodium Fluoride * PreviDent 5000 Booster Plus 1.1 % paste; Generic drug: Sodium Fluoride SITagliptin 50 MG tablet; Commonly known as: Januvia; Take 1 tablet (50 mg) by mouth Daily * This list has 4 medication(s) that are the same as other medications prescribed for you. Read the directions carefully, and ask your doctor or other care provider to review them with you. Past Medical History: Diagnosis Date Anxiety Breast calcifications (on bx) Chicken pox Chronic gout of multiple sites, unspecified cause Claustrophobia (CMS/HCC) Diabetes (CMS/HCC) Epilepsy and psychogenic non-epileptic seizures hospitalized years ago for her epilepsy and monitoring of new medication Gout Hammertoes of both feet Hx of measles Hx of migraine headaches Hx of mumps Hyperlipidemia (CMS/HCC) Hypothyroidism (CMS/HCC) MCI (mild cognitive impairment) Meningitis when she was 4 mos. old Mild cognitive impairment Mixed hyperlipidemia (CMS/HCC) Psychogenic nonepileptic seizure (CMS/HCC) Seizure disorder (CMS/HCC) Temporal lobe epilepsy (CMS/HCC) Tremor Type 2 diabetes mellitus with peripheral neuropathy (CMS/HCC) Vitamin D deficiency Vocal cord paralysis (05/2020)-- on f/u 07/2020 is had resolved- likely viral etiology Past Surgical History: Procedure Laterality Date DENTAL IMPLANT 11/2020 Upper jaw (Dr Friedman) TONSILLECTOMY as a child Family History Problem Relation Name Age of Onset Other (salivary cancer) Mother Multiple myeloma Father cause of at age 73 Dementia Sister Shelly Stroke Sister Shelly Alcohol abuse Brother age 43 No Known Problems Brother No Known Problems Brother Coronary artery disease Father's Brother Heart disease Father's Brother Hypertension Maternal Grandmother Coronary artery disease Maternal Grandfather Other (acute heart attack) Maternal Grandfather Heart disease Maternal Grandfather Diabetes type II Paternal Grandmother Diabetes type II Paternal Grandfather Social History Tobacco Use Smoking status: Never Smokeless tobacco: Never Substance Use Topics Alcohol use: Never Comment: caffeine: 2-3 cups per day tea or hot chocolate Allergies: Patient has no known allergies. Vitals: 09/22/24 1356 BP: 150/78 Pulse: 79 SpO2: 94% Body mass index is 26.53 kg/m . Weight: 169 lb 6.4 oz Neurologic exam: Mental status: Awake, alert to person, place and time. Recent and remote memory are intact. Language is fluent without aphasia. Attention and concentration are normal. Fund of knowledge is appropriate for level of education. Intermittent episodes rocking back and forth which are abruptly stopped when her family member claps her hands. Cranial nerves: CN II: Visual acuity is normal. Visual frederick full to confrontation. CN III, IV, : pupils equal round and reactive to light. Extraocular movements intact. No ptosis present. CN V: Facial sensation is normal. CN VII: Full and symmetric facial movement. CN VIII: Hearing is normal to finger rub bilaterally: CN IX and X: Palate elevates symmetrically. Normal gag reflex. CN XI: Shoulder shrug is normal bilaterally. CN XII: Tongue is midline without atrophy or fasciculation. Motor: Strength is 5/5 throughout. Bulk is normal. Sensory: Sensation is intact to light touch throughout Four extremities. Reflexes: Deep tendon reflexes are 2+ and symmetric throughout. Coordination: Xvlecp-fm-hlke testing and rapid alternating movements are normal Gait: Normal Review and summary of old records: LABS (ordered by PCP) on 12/04/22: CBC and CMP unremarkable (elevated glucose though reportedly the patient did not fast), CRP and ESR unremarkable. LTEM 12/2018 showed occasional temporal epilptiform discharges and she did have some events but they were not epileptic. 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 Her epileptic seizures are very well controlled on lamotrigine. The patient appears to have had a proximally 1 epileptic event over the course of the last year. Patient is tolerating medication well and is compliant with medication at her care facility. PLAN - Continue lamotrigine 200 mg twice daily - SUDEP discussed Psychogenic nonepileptic seizure (CMS/HCC) Frequent psychogenic nonepileptic seizures. Typically gets heavy breathing and upper body shaking but she is able to speak throughout them and has no postictal period. When someone claps they stop abruptly. Usually has at least one during physical examination and this was the case today. PLAN - She is on lamotrigine 200mg BID - Continue fluoxetine 20 mg daily - We have discussed cognitive behavioral therapy and referral to psych but both the family and the patient feel she is at her baseline - Continue memantine 5 mg twice daily - Could consider seroquel for the hallucinations though this is deferred today per patient and family request as the patient does not feel they are bothersome. Pt has been fully educated on their diagnosis, treatment options, follow up plan, and return instructions documented in this encounter [facility] 08-20-2024 Telephone encounter Note Pt called inquiring about status of medicaid application for hearing aids. Checked in online portal and states under medical review - no change with status. This information was relayed to patient's caregiver. [facility] Work Phone: 08-20-2024 Miscellaneous Notes Pt called inquiring about status of medicaid application for hearing aids. Checked in online portal and states under medical review - no change with status. This information was relayed to patient's caregiver. documented in this encounter [facility] 07-28-2024 History of Present illness Narrative Associated Problem(s): Hypothyroidism (acquired) (CMS/HCC) At this time, she is clinically and biochemically euthyroid. We will continue current dose of levothyroxine and continue to monitor TFTs. Associated Problem(s): Microalbuminuric diabetic nephropathy (CMS/HCC) Needs to improve her glucose control. If this persists, will plan to add SGLT2 or Ozempic to reduce risk for progressive renal failure Associated Problem(s): Mixed hyperlipidemia (CMS/HCC) -The importance of dietary modification, regular cardiovascular activity and compliance with any prescribed medication for assisted management/control of lipids has been discussed. -Since high cholesterol (especially LDL) is associated with an elevated risk of cardiovascular disease, which includes coronary artery disease, stroke and peripheral vascular disease, and has also been linked to diabetes and high blood pressure risks, by appropriately treating LDL, these risks can be reduced. -Continue current dose of atorvastatin Associated Problem(s): Temporal lobe epilepsy (CMS/HCC) No recent epileptic sz activity. 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 This abrupt auditory input can serve as a from of sensory stimulation that disrupts the ongoing psychogenic seizure activity. This concept is supported by the understanding that sensory stimuli can influence seizure activity. For example, in the context of epileptic seizures, sensory inputs can sometimes inhibit seizure propagation by altering neuronal activations states. Although PNES are not true epileptic seizures, the principle of using sensory stimuli to interrupt abnormal activity can be applied similarly. This (a single loud clap) is an effective intervention for her, In the past, these episodes could go on for 1-2 minutes; but since the Neurologist recommended this, the episodes terminate immediately. While counseling and CBT could possibly help her better manage her feelings and possibly reduce the frequency of these episodes, there is no reason to withhold this (ie the CLAP) intervention. To do so, could lead to increase stress for her. (It would be similar to withholding an antihypertensive for someone with elevated blood pressure). If a behavioral health case manager is able to work with her and reduce her episodes, then staff at the facility will have less need to intervene (with a clap). Associated Problem(s): Type 2 diabetes mellitus with peripheral neuropathy ([facility]) -Some dietary changes have been made (family stopped bringing in sweets). -We discussed also that foods like, bread, pasta, rice and potatoes are high in carbs, so these need to be consumed in smaller portions and less frequently. -Recommended family provide non-sugar/carb snacks for her to have available since pt/SLADE reports that the facility has not been able to do this. -With her continued worsening in glucose control, we need to add an additional agent. In order to be cost conscious, will add januvia. -Will get A1c in 3 months Will request that the facility fax (or could call) the weekly glucose results on a monthly basis for my review. Depending on response, dose may need to be adjusted. If glucose control dose not adequately improve, will consider SGLT2 or GLP1. Images from the original note were not included. Subjective : Chief Complaint: Eva Gallego (: 1950) is an 74 y.o. female here for an annual Medicare Wellness visit and Routine 6 Mo Follow Up HPI : Karen is being seen today for an annual MW with the [employer] and a routine six month follow up with Dr. Orellana. She had lab work done for today's visit. The results and any recommendations will be reviewed with her. Care gaps do not indicate any recommended screenings or vaccinations due at this time. Diabetes Management -DM was diagnosed several years ago -Associated complications: Neuropathy -Current Medications: Metformin and Atorvastatin -Currently reports doing FSBG checks weekly per the staff at [facility]; pt is unsure of the results -Previous A1c completed: in 01/2024 = 8.5% -Most recent A1c: in 07/2024 = 9.0% -Last LEONIDAS: 07/2024 -Last lipids: 07/2024 (LDL=71) -Last DM eye exam completed: 01/03/24 -Findings on eye exam: No evidence of DR or ME ----- The facility where she resides is requesting she see a behavioral health case manager because she has told residents that she if she is having one of her non-epileptic seizures that if they clap, it will terminate. This has been a proven technique (recommended by her Neurologist) to terminate the episodes. Current Outpatient Medications Medication Instructions Acetaminophen 500 mg, Oral, Every 8 hours PRN atorvastatin (Lipitor) 40 MG tablet TAKE 1 TABLET(40 MG) BY MOUTH IN THE MORNING Calcium Carb-Cholecalciferol 600-200 MG-UNIT tablet Every 12 hours cyclobenzaprine (Flexeril) 5 MG tablet TAKE 1 TABLET(5 MG) BY MOUTH AT BEDTIME diclofenac sodium 1 % gel as directed Externally FLUoxetine (PROZAC) 20 mg, Oral, Daily lamoTRIgine (LAMICTAL) 200 mg, Oral, 2 times daily levothyroxine (SYNTHROID, LEVOXYL) 75 mcg, Oral, Daily before breakfast loratadine (CLARITIN) 10 mg, Oral, Daily LORazepam (Ativan) 0.5 MG tablet One tablet the night before appointments and one tablet the day of appointments memantine (NAMENDA) 5 mg, Oral, 2 times daily metFORMIN (GLUCOPHAGE) 850 mg, Oral, 2 times daily with meals Multiple Vitamins-Minerals (Centrum Women) tablet Every 24 hours Multiple Vitamins-Minerals (OCUVITE ADULT 50+ PO) 1 tablet, Daily naproxen (Naprosyn) 250 MG tablet TAKE 1 TABLET BY MOUTH TWICE DAILY WITH FOOD OR MILK polyethylene glycol, PEG, 3350 (Glycolax, Miralax) powder 17 g, Daily PreviDent 5000 Booster Plus 1.1 % paste BRUSH AT BEDTIME- SPIT OUT AND DO NOT RINSE SITagliptin (JANUVIA) 50 mg, Oral, Daily Sodium Fluoride 5000 Plus 1.1 % cream No Known Allergies Past Medical History: Diagnosis Date Anxiety Breast calcifications (on bx) Chicken pox Chronic gout of multiple sites, unspecified cause Claustrophobia (CMS/HCC) Diabetes (CMS/HCC) Epilepsy and psychogenic non-epileptic seizures hospitalized years ago for her epilepsy and monitoring of new medication Gout Hammertoes of both feet Hx of measles Hx of migraine headaches Hx of mumps Hyperlipidemia (CMS/HCC) Hypothyroidism (CMS/HCC) MCI (mild cognitive impairment) Meningitis when she was 4 mos. old Mild cognitive impairment Mixed hyperlipidemia (CMS/HCC) Psychogenic nonepileptic seizure (CMS/HCC) Seizure disorder (CMS/HCC) Temporal lobe epilepsy (CMS/HCC) Tremor Type 2 diabetes mellitus with peripheral neuropathy (CMS/HCC) Vitamin D deficiency Vocal cord paralysis (05/2020)-- on f/u 07/2020 is had resolved- likely viral etiology Patient's PSH, SOCHx and Family Hx have been reviewed and updated if needed. Review of Systems Constitutional: Negative for activity change, appetite change, fatigue and unexpected weight change. HENT: Negative for ear pain, hearing loss, postnasal drip, sinus pain, trouble swallowing and voice change. Hx voice change due to vocal cord paralysis, but this resolved after a few months and felt to be due to viral cause Eyes: Negative for photophobia, pain and visual disturbance. -hx cataract surgery 02/2024 Respiratory: Negative for cough, shortness of breath and wheezing. Cardiovascular: Negative for chest pain, palpitations and leg swelling. Gastrointestinal: Negative for abdominal distention, abdominal pain, blood in stool and nausea. Genitourinary: Negative for difficulty urinating, dysuria and hematuria. 07/2024- she c/o hotflashes. Discussed the following info: RELIEVING HOT FLASHES *Identify and avoid your hot flash triggers. Common triggers include stress, caffeine, alcohol, spicy foods, tight clothing, heat and cigarette smoke. *Keep the bedroom cool. Use a fan during the day. Wear light layers of clothes with natural fibers. *Exercise daily. Walking and dancing are good choices; along with yoga. *Add soy protein in the form of foodstuffs NOT supplements (approx 40-60 mg) to you diet daily in place of animal protein. Musculoskeletal: Positive for arthralgias. Negative for back [...] and she also has psychogenic seizures. She has followed with Dr Loera (Neurology) in the past. Her psychogenic seizures, consist of head banging movements. She can talk during the episodes and/or supervisor opening and picking the conversation when it is over. - 12/2020- since her last appt, Dr Loera has started her on Fluoxetine. Per the neurologist recommendation, when she starts to have one of the episodes, her sister can clap loudly once and the head banging and rocking stop immediately. Psychiatric/Behavioral: Negative for confusion, decreased concentration, hallucinations and sleep disturbance. Endocrine: Negative for polydipsia, polyphagia and polyuria. She reports issues with hotflashes Allergic/Immunologic: Negative for immunocompromised state. List of current healthcare providers: Patient Care Team: Mariann Lynn DO as PCP - General (Internal Medicine) Mariann Lynn DO as PCP - ACO Reach Teresa Whitfield as Consulting Physician (Ophthalmology) Sameer Loera DO as Consulting Physician (Neurology) Sebastian Hicks DPM (Inactive) as Consulting Physician (Podiatry) Medicare Annual Visit Over the past 2 weeks, how often have you been bothered by any of the following problems? Little interest or pleasure in doing things: Not at all Feeling down, depressed, or hopeless: Not at all Patient Health Questionnaire-2 Score: 0 Hastings Fall Risk History of Falling, Immediate or Within 3 Months: No Mental Status: Forgets limitations Health Risk Assessment Form Do you need help eating, bathing, using the toilet, dressing, or getting around your home?: No Can you prepare your own meals?: No Can you do your own housework without help?: No Can you shop for groceries or clothes without help?: No Do you exercise for about 20 minutes 3 or more days a week?: No How confident are you that you can control and manage most of your health problems?: I cannot manage my medical problems Can you mange your money, credit cards and accounts, pay bills and taxes?: No Vision Screening: Yes, patient sees regular mat cutter/roving can tender Hearing Screening: Has some hearing loss Cognitive Screening Self Assessment: No self awareness of cognitive deficiency Three Word Registration: Banana, [place], Chair Clock Drawing: Partial Clock - 1 Three Word Recall: 2/3 words correct - 2 Total Score (0-5 Points): 3 Objective : Vital signs: BP 130/76 Pulse 84 Wt 168 lb 3.2 oz SpO2 98% BMI 26.34 kg/m Recent Results (from the past 12 weeks) [facility] MICROALB CREAT RATIO RANDOM Collection Time: 07/18/24 7:50 AM Result Value Ref Range MICROALBUMIN URINE RANDOM 7.0 <=30.0 mg/dL CREATININE URINE RANDOM 131.68 20.00 - 300.00 mg/dL MICROALBUM CREATININE RATIO UR 53.1 (H) 0.0 - 29.9 mg/g ALL CBC WITH AUTO DIFF Collection Time: 07/18/24 8:03 AM Result Value Ref Range [facility] WBC 5.9 4.0 - 11.0 10 3/uL [facility] RBC 4.40 4.20 - 5.40 10 6/uL [facility] HGB 13.7 12.0 - 16.0 g/dL [facility] HCT 41.7 36.0 - 48.0 % [facility] MCV 94.8 81.0 - 99.0 fL [facility] MCH 31.1 26.7 - 34.0 pg [facility] MCHC 32.9 29.9 - 35.2 g/dL [facility] RDW 13.5 11.0 - 15.0 % [facility] PLT 272 150 - 450 10 3/uL [facility] MPV 9.6 9.5 - 13.5 fL NEUTROPHILS PERCENT AUTO 55.0 43.0 - 75.0 % LYMPHOCYTES PERCENT AUTO 32.6 20.5 - 60.0 % MONOCYTES PERCENT AUTO 8.0 1.7 - 12.0 % [facility] EO % 3.6 0.9 - 7.0 % BASOPHILS PERCENT AUTO 0.5 0.2 - 2.0 % IMMATURE GRANULOCYTES PCT AUTO 0.3 0.0 - 0.5 % NEUTROPHILS ABSOLUTE AUTO 3.2 1.4 - 6.5 10 3/uL LYMPHOCYTES ABSOLUTE AUTO 1.9 1.2 - 3.8 10 3/uL MONOCYTES ABSOLUTE AUTO 0.5 0.3 - 0.8 10 3/uL TB[facility] EO # 0.2 0.0 - 0.7 10 3/uL BASOPHILS ABSOLUTE AUTO 0.0 0.0 - 0.1 10 3/uL IMMATURE GRANULOCYTES ABS AUTO 0.02 0.00 - 0.03 10 3/uL MLR HEMOGLOBIN A1C Collection Time: 07/18/24 8:03 AM Result Value Ref Range GLYCOHEMOGLOBIN A1C 9.0 (H) 4.5 - 6.2 % ESTIMATED AVERAGE GLUCOSE 212 mg/dL [facility] CMP (CMP) (FOR REMOTE [facility] USE) Collection Time: 07/18/24 8:03 AM Result Value Ref Range SODIUM 136 136 - 145 mmol/L POTASSIUM 4.6 3.5 - 5.1 mmol/L CHLORIDE 99 98 - 107 mmol/L CARBON DIOXIDE 27.6 21.0 - 32.0 mmol/L ANION GAP 14.0 GLUCOSE 181 (H) 74 - 106 mg/dL BLOOD UREA NITROGEN 19.0 (H) 7.0 - 18.0 mg/dL CREATININE 1.03 (H) 0.55 - 1.02 mg/dL [facility] EGFR-AF LIBERIAN >60 >=60 mL/min/1.73m 2 [facility] EGFR-NON AF LIBERIAN 52 (L) >=60 mL/min/1.73m 2 BUN CREATININE RATIO 18.4 CALCIUM 10.3 (H) 8.5 - 10.1 mg/dL BILIRUBIN TOTAL 0.5 0.2 - 1.0 mg/dL ASPARTATE AMINO TRANSFERASE 15 15 - 37 U/L ALANINE AMINOTRANSFERASE 32 14 - 59 U/L ALKALINE PHOSPHATASE 73 46 - 116 U/L TOTAL PROTEIN 8.1 6.4 - 8.2 g/dL ALBUMIN LEVEL 4.4 3.4 - 5.0 g/dL GLOBULIN 3.7 g/dL ALBUMIN GLOBULIN RATIO 1.2 ALL URIC ACID Collection Time: 07/18/24 8:03 AM Result Value Ref Range URIC ACID 4.3 2.6 - 6.0 mg/dL ALL LIPID PROFILE (FASTING) Collection Time: 07/18/24 8:03 AM Result Value Ref Range TRIGLYCERIDES 159 (H) <=150 mg/dL CHOLESTEROL 170 <=200 mg/dL HDL CHOLESTEROL 68 (H) 40 - 60 mg/dL LDL CHOLESTEROL CALCULATED 71.0 mg/dL VLDL CHOLESTEROL 31.8 mg/dL CHOL HDL RATIO 2.5 ALL THYROID STIM HORMONE Collection Time: 07/18/24 8:03 AM Result Value Ref Range THYROID STIMULATING HORMONE 3.040 0.358 - 3.740 uIU/mL [facility] VITAMIN D 25 OH Collection Time: 07/18/24 8:03 AM Result Value Ref Range VITAMIN D 62.0 ng/mL ALL THYROXINE (T4) FREE Collection Time: 07/18/24 8:03 AM Result Value Ref Range FREE T4 1.15 0.76 - 1.46 ng/dL VITAMIN B12 Collection Time: 07/18/24 8:03 AM Result Value Ref Range VITAMIN B12 >2000 (A) 232 - 1245 pg/mL Physical Exam Constitutional: General: She is not [...] Content: Thought content normal. Judgment: Judgment normal. Comments: Several episodes of PNES during her visit today. They started when we were discussing the difficulty getting staff members at the facility were she is living to clap for her when she is having one of her episodes. Assessment/Plan : Problem List Items Addressed This Visit Hypothyroidism (acquired) (CMS/HCC) Overview Prescribed levothyoxine 75 mcg daily 07/2024: TSH= 3.040 and FT4=1.15 Current Assessment & Plan At this time, she is clinically and biochemically euthyroid. We will continue current dose of levothyroxine and continue to monitor TFTs. 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 -Since high cholesterol (especially LDL) is associated with an elevated risk of cardiovascular disease, which includes coronary artery disease, stroke and peripheral vascular disease, and has also been linked to diabetes and high blood pressure risks, by appropriately treating LDL, these risks can be reduced. 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 She previously followed with Dr Loera (Neurology). Her psychogenic seizures, consist of head banging movements lasting ~20 seconds. She can talk during the episodes and/or supervisor opening and picking the conversation when it is over. 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 Her epileptic seizures are very well controlled on lamotrigine. Per family no epileptic events in over 2 years. ----- PLAN - Continue lamotrigine 200 mg twice daily Current Assessment & Plan No recent epileptic sz activity. She will continue current rx and follow up with Neurology routinely Type 2 diabetes mellitus with peripheral neuropathy (CMS/HCC) Overview Prescribed metformin 850 mg BID 07/2024 A1c has increased from 8.5% to 9.0%. Current Assessment & Plan -Some dietary changes have been made (family stopped bringing in sweets). -We discussed also that foods like, bread, pasta, rice and potatoes are high in carbs, so these need to be consumed in smaller portions and less frequently. -Recommended family provide non-sugar/carb snacks for her to have available since pt/SLADE reports that the facility has not been able to do this. -With her continued worsening in glucose control, we need to add an additional agent. In order to be cost conscious, will add januvia. -Will get A1c in 3 months Will request that the facility fax (or could call) the weekly glucose results on a monthly basis for my review. Depending on response, dose may need to be adjusted. If glucose control dose not adequately improve, will consider SGLT2 or GLP1. Relevant Medications SITagliptin (Januvia) 50 MG tablet metFORMIN (Glucophage) 850 MG tablet Chronic gout of multiple sites Conversion disorder with attacks or seizures (CMS/HCC) Overview -She follows with Neurology for her Epileptic activity and these pseudoseizures. -She had 3 day monitoring 2018 with some discharges, but no true sz -Based on recommendation of Neurologist, when she has one of these episodes, if someone claps loudly the activity terminates immediately She tends to have varying frequency of these psychogenic nonepileptic seizures. The episodes typically consist of heavy breathing and upper body shaking/rocking; she is able to speak throughout them and has no postictal period. These generally occur as a response to her feeling some stressor or overstimulation. When someone claps they stop abruptly. TREATMENT PLAN has included: - Lamotrigine 200mg BID - Fluoxetine 20 mg daily - Consideration for cognitive behavioral therapy and referral to psych have been discussed, but both the family and the patient have previously declined this. - Could consider seroquel for the hallucinations Current Assessment & Plan A loud clap can help someone with conversion disorder, specifically those experiencing psychogenic nonepileptic seizures (PNES), to terminate the activity by providing a sudden, sensory stimulus. This abrupt auditory input can serve as a from of sensory stimulation that disrupts the ongoing psychogenic seizure activity. This concept is supported by the understanding that sensory stimuli can influence seizure activity. For example, in the context of epileptic seizures, sensory inputs can sometimes inhibit seizure propagation by altering neuronal activations states. Although PNES are not true epileptic seizures, the principle of using sensory stimuli to interrupt abnormal activity can be applied similarly. This (a single loud clap) is an effective intervention for her, In the past, these episodes could go on for 1-2 minutes; but since the Neurologist recommended this, the episodes terminate immediately. While counseling and CBT could possibly help her better manage her feelings and possibly reduce the frequency of these episodes, there is no reason to withhold this (ie the CLAP) intervention. To do so, could lead to increase stress for her. (It would be similar to withholding an antihypertensive for someone with elevated blood pressure). If a behavioral health case manager is able to work with her and reduce her episodes, then staff at the facility will have less need to intervene (with a clap). Microalbuminuric diabetic nephropathy ([facility]) Overview 07/2024 LEONIDAS/Cr=53 Current Assessment & Plan Needs to improve her glucose control. If this persists, will plan to add SGLT2 or Ozempic to reduce risk for progressive renal failure Other Visit Diagnoses Medicare annual wellness visit, subsequent - Primary Patient here for annual Medicare Wellness visit with Rody Odell NP. Demographics were updated. Self-assessment was completed. Past medical, family, and social history were updated. The medication list, including supplements being taken, was updated. A list of other current medical providers was established/updated. Time was spent discussing health maintenance issues, ordering proper testing, and a schedule was provided regarding recommended screening. We discussed safety issues and fall risk. Depression screening was completed and addressed. Fall screening was completed and addressed. Cognitive function was assessed by direct observation and assessment of ability to perform ADL's and IADL's was done. The current BMI was provided and will continue to be monitored at routine office visits as well. Major risk factors for chronic disease including family history were discussed and a list was provided with the care plan. ACP (advance care planning) Discussed LW/POA with patient. Patient does have this in place. The following health maintenance schedule was reviewed with the patient and provided in printed form in the after visit summary: Health Maintenance Topic Date Due Pneumococcal Vaccine: 65+ Years (2 of 2 - PPSV23 or PCV20) 01/05/2025 (Originally 08/23/2021) Diabetes: Hemoglobin A1C 10/18/2024 Diabetes: Urine Protein Screening 07/18/2025 Medicare Annual Wellness (AWV) 07/22/2025 Diabetes: Retinopathy Screening 01/02/2026 Mammogram Discontinued Influenza Vaccine Discontinued Colorectal Cancer Screening Discontinued Immunization History Administered Date(s) Administered Pfizer Purple Cap SARS-CoV-2 Vaccination 05/12/2020, 06/02/2020 Pneumococcal Conjugate PCV 13 03/11/2020, 06/28/2021 Tdap 07/07/2021 No orders of the defined types were placed in this encounter. This patient was seen and examined by one of our Advanced Care Practitioner (SENIOR INFORMATICA DEVELOPER/PA) for the Medicare Wellness portion of this visit. History was confirmed/verified and prado elements of the physical exam were also completed by myself. The assessment and plan has been reviewed and amended as needed. I am in agreement with the information as documented above. I spent a total of 48 minutes on the date of the service which included: time spent preparing to see the patient by reviewing last office note and chronic conditions, talking to the patient/documenting in the chart, examining the patient, placing orders in the chart and documenting in the chart after the visit. Protocols reviewed and updated. A collaborative plan of care has been created for pt regarding specific health concerns. Any barriers to care have been identified and addressed. Any part of this document that has been added/copied from other documents has been reviewed for accuracy and updated as appropriate at the time of the patient encounter. -Follow up in about 6 months (around 01/22/2025) for appt for monitoring and management of chronic conditions. Mariann Lynn DO Board Certified [employer] documented in this encounter [facility] 07-24-2024 Telephone encounter Note Checked on status of hearing aid application- still says pending under medical review [facility] Work Phone: 07-24-2024 Miscellaneous Notes Checked on status of hearing aid application- still says pending under medical review documented in this encounter [facility] 07-22-2024 Instructions Mariann Lynn DO - 07/22/2024 10:30 AM EDT RELIEVING HOT FLASHES *Identify and avoid your hot flash triggers. Common triggers include stress, caffeine, alcohol, spicy foods, tight clothing, heat and cigarette smoke. *Keep the bedroom cool. Use a fan during the day. Wear light layers of clothes with natural fibers. *Exercise daily. Walking and dancing are good choices; along with yoga. *Add soy protein in the form of foodstuffs NOT supplements (approx 40-60 mg) to you diet daily in place of animal protein. documented in this encounter [facility] 07-09-2024 Telephone encounter Note Return call placed to [facility] [place]. Spoke with nurse Licha who again describes the patients episodes of [...] with seizure activity or episodes of LOC. [facility] Work Phone: 07-09-2024 Miscellaneous Notes Return call placed to [facility] [place]. Spoke with nurse Licha who again describes the patients episodes of [...] with seizure activity or episodes of LOC. Glory Ramirez calls stating that when the pt is over stimulated or in a high anxiety situation she begins to visibly shake. States that she expects someone to come and clap their hands for her to get out of the spell . They're wondering is this a behavioral or neurological situation? How should they proceed with this? Please advise. CB [phone] documented in this encounter [facility] 07-09-2024 Telephone encounter Note Glory Ramirez calls stating that when the pt is over stimulated or in a high anxiety situation she begins to visibly shake. States that she expects someone to come and clap their hands for her to get out of the spell . They're wondering is this a behavioral or neurological situation? How should they proceed with this? Please advise. CB [phone] [facility] 07-08-2024 Telephone encounter Note Orders printed and mailed to her so she can do at [facility] 07-08-2024 Miscellaneous Notes Orders printed and mailed to her so she can do at [facility] ----- Message from Dr. Mariann Lynn sent at 01/09/2024 11:15 AM EDT ----- Regarding: [facility] lab order Needs labs [facility] in July ([place]) documented in this encounter [facility] 07-08-2024 Telephone encounter Note ----- Message from Dr. Mariann Lynn sent at 01/09/2024 11:15 AM EDT ----- Regarding: [facility] lab order Needs labs PTV in July ([place]) [facility] 07-02-2024 Telephone encounter Note Checked on status of Medicaid application for hearing aids. It still says pending - requires medical review...will check again to monitor status [facility] Work Phone: 07-02-2024 Miscellaneous Notes Checked on status of Medicaid application for hearing aids. It still says pending - requires medical review...will check again to monitor status documented in this encounter [facility] 05-28-2024 Telephone encounter Note Checked status of application- still pending. Discussed with Tc who was told that we should cancel current PA requests and re-submit. Resubmitted application today. Awaiting approval again. [facility] [employer] Work Phone: 05-28-2024 Miscellaneous Notes Checked status of application- still pending. Discussed with Tc who was told that we should cancel current PA requests and re-submit. Resubmitted application today. Awaiting approval again. documented in this encounter [facility] 04-15-2024 Telephone encounter Note Checked on status of hearing aid application in medicaid portal. Results still say pending medical review. [facility] [employer] Work Phone: 04-15-2024 Miscellaneous Notes Checked on status of hearing aid application in medicaid portal. Results still say pending medical review. documented in this encounter [facility] 03-19-2024 Telephone encounter Note I was able to access Medicaid portal and attempt prior authorization for the patient. Once approval is received, a hearing aid can be ordered. [facility] Work Phone: 03-19-2024 Miscellaneous Notes I was able to access Medicaid portal and attempt prior authorization for the patient. Once approval is received, a hearing aid can be ordered. documented in this encounter [facility] 03-04-2024 History of Present illness Narrative Impressions: Pt was seen today for an impression of her right ear. This was taken without incident. Unfortunately, the Medicaid portal is still not cooperating for prior auths and this was explained to patient. Hopefully, this will be resolved in the near future. In the meantime, her impression will be held in the [place] [facility]. She would like 1 ITC with [...] have custom aids. documented in this encounter [facility] 02-20-2024 Note HNO ID: [id number] Author: DEMI PONCE APRN.TEST DESIGN ENGINEER Service: ? Author Type: Nurse Beam Builder Type: Anesthesia Procedure Notes Filed: 02/20/2024 10:26 Note Text: ANESTHESIOLOGY PROCEDURE NOTE Airway General Information Procedure Start Time/Medication Administration: 02/20/2024 10:18 AM Procedure End Time: 02/20/2024 10:18 AM Patient location during procedure: OR Patient identity confirmed: arm band and patient Staffing Anesthesiologist: Guille Villalta II, DO TEST DESIGN ENGINEER: Demi Ponce APRN.TEST DESIGN ENGINEER Performed by: TEST DESIGN ENGINEER Indications and Patient Condition Indications for airway management: anesthesia Preoxygenated: yes anesthesia circuit Patient position: sniffing Method: asleep Difficult Mask: No Final Airway Details Final airway type: supraglottic airway Number of attempts at approach: 1 Final Supraglottic Airway: IGEL Size 4 Seal Adequate: yes Airway not difficult SIGNATURE: Demi Ponce APRN.CRNA PATIENT NAME: Eva Gallego DATE: February 20, 2024 TIME: 10:25 AM CSN: [id number] [facility] 02-06-2024 Note HNO ID: [id number] Author: NICKIE ROSS APRN.TEST DESIGN ENGINEER Service: ? Author Type: Nurse Beam Builder Type: Anesthesia Procedure Notes Filed: 02/06/2024 10:08 Note Text: ANESTHESIOLOGY PROCEDURE NOTE Airway General Information Procedure Start Time/Medication Administration: 02/06/2024 9:56 AM Procedure End Time: 02/06/2024 9:56 AM Patient location during procedure: OR Patient identity confirmed: arm band and patient Staffing TEST DESIGN ENGINEER: Nickie Ross APRN.TEST DESIGN ENGINEER Performed by: HELGA Indications and Patient Condition Indications for airway management: anesthesia Preoxygenated: yes anesthesia circuit Patient position: sniffing Method: asleep Difficult Mask: No Final Airway Details Final airway type: supraglottic airway Number of attempts at approach: 1 Final Supraglottic Airway: IGEL Size 4 Seal Adequate: yes Airway not difficult SIGNATURE: Nickie Ross APRN.TEST DESIGN ENGINEER PATIENT NAME: Eva Gallego DATE: February 06, 2024 TIME: 10:08 AM CSN: [id number] [facility] 02-03-2024 History of Present illness Narrative Associated Problem(s): Mixed hyperlipidemia (CMS/HCC) -Reinforced importance of dietary modification, regular cardiovascular activity and compliance with any prescribed medication for usp management/control of lipids. High cholesterol (especially LDL) [...] 2 diabetes mellitus with peripheral neuropathy (CMS/HCC) She has been eating more sweets lately. I stressed that she needs reduce this as her A1c has increased >1%. I advised her that it is possible her cataract surgery will be pushed back due to this, but that will be up to her Air Boatswain. I do not want to add another medication at this time as I feel if she curbs her CHO intake her control will improve. Images from the original note were not included. Subjective Patient ID: Karen Gallego (: 1950) is a 73 y.o. female [...] Karen will be having cataract [facility] at [facility]. (02/07/24 and 02/20/24) Diabetes Management -DM was diagnosed several years ago -Associated complications: Neuropathy -Current Medications: Metformin and Atorvastatin -Currently reports doing FSBG checks weekly per the staff at [facility]; pt is unsure of the [...] She can talk during the episodes and/or supervisor opening and picking the conversation when it is over. - [...] and compliance with any prescribed medication for usp management/control of lipids. High cholesterol (especially LDL) [...] She can talk during the episodes and/or supervisor opening and picking the conversation when it is over. She [...] 2 diabetes mellitus with peripheral neuropathy (CMS/HCC) - Primary Overview Prescribed metformin 850 mg BID Current Assessment & Plan She has been eating more sweets lately. I stressed that she needs reduce this as her A1c has increased >1%. I advised her that it is possible her cataract surgery will be pushed back due to this, but that will be up to her Air Boatswain. I do not want to add another [...] She will be having cataract surgery at [facility] in February. (02/07/24 and 02/20/24) Health Maintenance [...] 6 months (around 07/08/2024) for MW with SENIOR INFORMATICA DEVELOPER and routine 6 month follow up with me. Mariann Lynn D.O. Board Certified Cattyman documented in this encounter [facility] 01-29-2024 Note HNO ID: [id number] Author: KATIE KIMBROUGH COT Service: ? Author Type: Parole Hearing Officer Type: Progress Notes Filed: 01/29/2024 13:51 Note Text: Confirmed Aim: [place] Prior Refractive surgery No Written pre-op instructions regarding eye drops and care reviewed with patient. KELLI Charles January 29, 2024 1:51 PM [facility] 01-29-2024 Note Date of Procedure 01/29/2024. Parole Hearing Officer Information Hole Puncher Strap: faisal. OD AL 23.25 OS AL 22.95. Notes Ascan report in paper chart and scanned to patient chart after post op period. [facility] 01-29-2024 History of Present illness Narrative Confirmed Aim: [place] Prior Refractive surgery No Written pre-op instructions regarding eye drops and care reviewed with patient. KELLI Charles January 29, 2024 1:51 PM documented in this encounter [facility] 01-29-2024 Note Date of Procedure 01/29/2024. Parole Hearing Officer Information Hole Puncher Strap: faisal. Notes Measurements only - see Procedure Record under Scanned Documents for signed results. 1. Have you ever had surgery in your eyes before? No 2. Have you ever had a refractive procedure performed on your eyes? No 3. Have you worn contact lenses in the last 3 months? No [facility] 01-29-2024 Instructions Zacarias Ray APRN.PSYCHIATRY TEACHER - 01/29/2024 12:23 PM EDT Images from the original note were not included. [facility] PATIENT PREOPERATIVE INSTRUCTIONS Victorino Remy MD has scheduled you for your procedure at this surgery center: [facility]: [phone] --[address] [facility] [address]. Please read below carefully for your personalized [...] Procedures: - YOU MUST HAVE A RESPONSIBLE PRODUCT MANAGEMENT CONSULTANT TAKE YOU HOME. A FOLDER SEAMER OR BILINGUAL LEGAL ASSISTANT CANNOT BE MADE A RESPONSIBLE PRODUCT MANAGEMENT CONSULTANT. - We recommend that a responsible person stays with you overnight to take care of you. - You cannot stay in a hotel alone after outpatient surgery. You will not be permitted to have your surgery, if you do not have someone to take care of you. If you already have an Advance Directive, please fax a copy to [phone] or email to for it to be [...] Zacarias Ray APRN.CINTHIA documented in this encounter [facility] 01-29-2024 History and physical note Images from the original note were not included. [facility] HISTORY AND PHYSICAL EXAMINATION SERVICE DATE: 01/29/2024 SERVICE TIME: 12:17 PM PRIMARY CARE PHYSICIAN: No primary care provider on file. REASON FOR VISIT: Eva Gallego is a 73 year old female who [...] large neck Non-male patient STOP-Bang Score: 1 [id number] Score: Age: >=75 Sex: female CHF history: No Hypertension history: No Stroke/TIA/thromboembolism history: No Vascular disease history: No Diabetes history: Yes [id number] Score: 4 ARISCAT Score: Age: 51-80 Preoperative [...] +Cognitive Impairment No history of TIA's, stroke, AIRPLANE COVER MAKER tumor, impaired sensorium, hemiplegia, paraplegia or quadraplegia Respiratory: No history of current cough or dyspnea, or pneumonia in the past 6 weeks. No history of respiratory/pulmonary symptoms or problems. Cardiovascular: No history of HTN requiring medication, no history of angina, CHF, VA, cardiac surgery or stents. Denies rest pain, [...] > 1 time per night or hematuria POWDER MONKEY: Negative for abnormal vaginal bleeding, abnormal vaginal [...] COVID-19 original vaccine, age 12+ yr, monovalent ([employer] - PURPLE TOP) PAST MEDICAL HISTORY Diagnosis [...] SIGNATURE: Zacarias Ray APRN.CNP PATIENT NAME: Eva Gallego DATE: 01/29/2024 TIME: 12:27 PM [facility] 01-29-2024 History and physical note Images from the original note were not included. [facility] HISTORY AND PHYSICAL EXAMINATION SERVICE DATE: 01/29/2024 SERVICE TIME: 12:17 PM PRIMARY CARE PHYSICIAN: No primary care provider on file. REASON FOR VISIT: Eva Gallego is a 73 year old female who [...] large neck Non-male patient STOP-Bang Score: 1 [id number] Score: Age: >=75 Sex: female CHF history: No Hypertension history: No Stroke/TIA/thromboembolism history: No Vascular disease history: No Diabetes history: Yes [id number] Score: 4 ARISCAT Score: Age: 51-80 Preoperative [...] +Cognitive Impairment No history of TIA's, stroke, AIRPLANE COVER MAKER tumor, impaired sensorium, hemiplegia, paraplegia or quadraplegia Respiratory: No history of current cough or dyspnea, or pneumonia in the past 6 weeks. No history of respiratory/pulmonary symptoms or problems. Cardiovascular: No history of HTN requiring medication, no history of angina, CHF, VA, cardiac surgery or stents. Denies rest pain, [...] > 1 time per night or hematuria POWDER MONKEY: Negative for abnormal vaginal bleeding, abnormal vaginal [...] SIGNATURE: Zacarias Ray APRN.CNP PATIENT NAME: Eva Gallego DATE: 01/29/2024 TIME: 12:27 PM documented in this encounter [facility] 01-16-2024 Telephone encounter Note Faxed medical clearance request to Dr. Mariann Sky [facility] Work Phone: 01-16-2024 Miscellaneous Notes Faxed medical clearance request to Dr. Mariann Sky documented in this encounter [facility] 01-16-2024 History of Present illness Narrative Patient [...] after that appointment. documented in this encounter [facility] 01-15-2024 History of Present illness Narrative History: [...] loss 250-500 Hz, rising to normal hearing 0757-2251 Hz, sloping to a moderate to moderately-severe sensorineural hearing loss 7819-1257 Hz. Today's audio is consistent with previous [...] with patient tomorrow documented in this encounter [facility] 01-09-2024 Instructions Mariann Lynn DO - 01/09/2024 10:15 AM EDT She has been eating more sweets lately. I stressed that she needs reduce this as her A1c has increased >1%. I advised her that it is possible her cataract surgery will be pushed back due to this, but that will be up to her Air Boatswain. I do not want to add another medication at this time as I feel if she curbs her CHO intake her control will improve. We did not make any medication changes today. Will follow up in ~6 months. Will send lab order when closer to next appt to have done documented in this encounter [facility] 01-03-2024 Note HNO ID: [id number] Author: VICTORINO REMY MD Service: ? Author [...] Left Eye High 20/200 Visual Function: Eva Gallego states that the decline in vision from the cataract impedes her abilities as listed in the HPI, as well as other activities of daily living. Eva Gallego has confirmed that she is no longer [...] with lens implantation were discussed with Eva Gallego in detail. she appeared to understand and asked that I proceed with plans for surgery. Offered Phacoemulsification cataract extraction with insertion of intraocular lens by Dr. Remy OD / OS. Patient wishes to proceed with surgery. All questions were answered. A-scan to be performed pre-operatively. Referred by Dr. Whitfield, Thank you for your kind referral! Allergies: see list - Aim: [place] OU. Patient understands the need for glasses for all near and intermediate vision including reading and computer work. - Anesthesia: General. Patient states she takes Ativan the night before and 1-2 the morning of procedure. Discussed that for her to have safe cataract surgery by me, she would need to be cleared to have general anesthesia at the [facility]. - Diabetes Mellitus . - Blood thinner [...] pallor OU. +seizure disorder. +premature and poor immigration case manager nutrition. Also h/o spinal meningitis as a child, per patient. Stable from Dr. Whitfield' notes. 5. Insufficiency of tear film of both eyes - ICD9: 375.15, ICD10: H04.123 Unable to instill eye drops due to seizure disorder. Warm compresses prn. 6. 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 Seizure disorder, brought out of these by her aid clapping; It has taken since July to get appt here; h/o spinal meningitis at age2; grand mal sz are under control but has Psychogenic nonepileptic seizures; offered cataract Surgery OD/OS if cleared for general anesthesia, plan co-management with Dr. Whitfield. Copy of today's visit note (more content not included)... [facility] 01-03-2024 History of Present illness Narrative [...] Left Eye High 20/200 Visual Function: Eva Gallego states that the decline in vision from the cataract impedes her abilities as listed in the HPI, as well as other activities of daily living. Eva Gallego has confirmed that she is no longer [...] with lens implantation were discussed with Eva Gallego in detail. she appeared to understand and asked that I proceed with plans for surgery. Offered Phacoemulsification cataract extraction with insertion of intraocular lens by Dr. Remy OD / OS. Patient wishes to proceed with surgery. All questions were answered. A-scan to be performed pre-operatively. Referred by Dr. Whitfield, Thank you for your kind referral! Allergies: see list - Aim: [place] OU. Patient understands the need for glasses for all near and intermediate vision including reading and computer work. - Anesthesia: General. Patient states she takes Ativan the night before and 1-2 the morning of procedure. Discussed that for her to have safe cataract surgery by me, she would need to be cleared to have general anesthesia at the [facility]. - Diabetes Mellitus . - Blood thinner [...] pallor OU. +seizure disorder. +premature and poor immigration case manager nutrition. Also h/o spinal meningitis as a child, per patient. Stable from Dr. Whitfield' notes. 5. Insufficiency of tear film of both eyes - ICD9: 375.15, ICD10: H04.123 Unable to instill eye drops due to seizure disorder. Warm compresses prn. 6. 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 Seizure disorder, [...] others. I have seen and examined Eva Gallego. I have discussed the case and the management of this patient's care with the Resident/Fellow, if applicable. I also have reviewed and agree with the assessment and plan as stated above and agree with all of its relevant components. Victorino Remy MD 01/03/24 documented in this encounter [facility] 01-03-2024 Note Date of Procedure 01/03/2024. Parole Hearing Officer Information Hole Puncher Strap: ethan. Interpretation Right Eye Normal foveal contour. Left Eye Normal foveal contour. Interval Change Right Eye Initial. Left Eye Initial. [facility] 01-03-2024 Note Date of Procedure 01/03/2024. Parole Hearing Officer Information Hole Puncher Strap: cs. Difficult due to patient shaking (having seizures). Astigmatism Right Eye Regular. Left Eye Regular. Interval Change Right Eye Intial . Left Eye Intial . Notes Less than one diopter, regular, both eyes [facility]EISS Evaluation note No assessment inform [facility] Work Phone: Evaluation note Diagnosis Combined [...] of senile cataract [facility] Pre-op evaluation- Primary Preoperative [...] daily * Assessment & Plan Note - Zacarias Ray APRN.CNP - 01/28/2024 9:05 AM EDTAssociated [...] terminate with clap [facility] Diagnosis Pre-op evaluation- Primary Preoperative [...] of senile cataract [facility] Diagnosis Closed compression fracture of [...] drug monitoring [facility] [...] (CMS/HCC) Cortical age-related cataract of both eyes Medicare annual wellness visit, subsequent- Primary ACP (advance care planning) Other specified counseling Hypothyroidism (acquired) (CMS/HCC) Unspecified hypothyroidism Type 2 diabetes mellitus with peripheral neuropathy (CMS/HCC) 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) Localization-related (focal) (partial) epilepsy and epileptic syndromes with complex partial seizures, without mention of intractable epilepsy Mixed hyperlipidemia (CMS/HCC) Mixed hyperlipidemia Microalbuminuric diabetic nephropathy (CMS/HCC) documented in this encounter [facility]* Diagnosis Closed compression fracture of L4 lumbar vertebra with routine healing, subsequent encounter- Primary Hypothyroidism (acquired) (CMS/HCC) Unspecified hypothyroidism Mixed hyperlipidemia (CMS/HCC) Mixed hyperlipidemia Type 2 diabetes mellitus with peripheral neuropathy (CMS/HCC) Psychogenic nonepileptic seizure Anxiety- Primary Anxiety state, unspecified Type 2 diabetes mellitus with peripheral neuropathy (CMS/HCC) Muscle spasms of neck Hypothyroidism (acquired) (CMS/HCC) Unspecified hypothyroidism Mixed hyperlipidemia (CMS/HCC) Mixed hyperlipidemia MCI (mild cognitive impairment) Mild cognitive impairment, so stated Psychogenic nonepileptic seizure Temporal lobe epilepsy (CMS/HCC) Localization-related (focal) (partial) [...] cognitive impairment, so stated Psychogenic nonepileptic seizure Type 2 diabetes mellitus with peripheral neuropathy (CMS/HCC)- Primary Anxiety Anxiety state, unspecified Hypothyroidism (acquired) (CMS/HCC) Unspecified hypothyroidism Mixed hyperlipidemia (CMS/HCC) Mixed hyperlipidemia Temporal lobe epilepsy (CMS/HCC) Localization-related (focal) (partial) epilepsy and epileptic syndromes with complex partial seizures, without mention of intractable epilepsy Psychogenic nonepileptic seizure Cortical age-related cataract of both eyes Medicare annual wellness visit, subsequent- Primary ACP (advance care planning) Other specified counseling Hypothyroidism (acquired) (CMS/HCC) Unspecified hypothyroidism Type 2 diabetes mellitus with peripheral neuropathy (CMS/HCC) 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) Localization-related (focal) (partial) epilepsy and epileptic syndromes with complex partial seizures, without mention of intractable epilepsy Mixed hyperlipidemia (CMS/HCC) Mixed hyperlipidemia Microalbuminuric diabetic nephropathy (CMS/HCC) Temporal lobe epilepsy (CMS/HCC)- Primary Localization-related (focal) (partial) epilepsy and epileptic syndromes with complex partial seizures, without mention of intractable epilepsy Psychogenic nonepileptic seizure MCI (mild cognitive impairment) Mild cognitive impairment, so stated [facility] Additional Instructions If your symptoms return/worsen or you develop any further concerns or symptoms please see your doctor or return to the emergency department immediately.[facility] Work Phone: Summary Purpose Family History No Family History Records Found Relationship Condition Age at Onset Recorded Date/T brendan brother Alcoholism Unknown Unknown father Heart disease Unknown Alcoholism Unknown family member Unknown mother Unknown Heart disease Unknown Advance Directives No Advanced Directives Records Found Advance Directive Response Recorded Date/ Time Advance Directives Yes November 01 3:35pm Advance Directive Response Recorded Date/ Time Advance Directives Yes November 01 4:35pm Documents on File Type Date Recorded Patient House Designer Expl anation Advance Directive(s) 01/29/2024 12:15 PM Advance Directive(s) 01/29/2024 12:10 PM Documents on File Type Date Recorded Patient House Designer Expl anation Power of Manager Telemarketing 01/15/2024 2:03 PM 2023 POWER OF BARREL HANDLER Advance Directives and Living Will 11/12/2019 2019-11-12 [facility] Documents on File Type Date Recorded Patient House Designer Expl anation Advance Directives and Livin g Will 11/12/2019 2019[facility]11[facility] Chief Complaint and Reason for Visit Chief Complaint E11.42 E78.2 E03.9 M [id number].09X0 Z51.81 Chief Complaint Z12.[address] hebert, abnormal xray Chief Complaint Screening Z78.0 Z13.820 Additional Source Comments INFORMATION SOURCE (unrecogn ized section and content) DATE CREATED AUTHOR 12/11/2020 [facility] DATE CREATED AUTHOR AUTHOR'S ORGANIZ ATION 11/28/2023 [facility] DATE CREATED AUTHOR AUTHOR'S ORGANIZ ATION 02/22/2024 [facility] DATE CREATED AUTHOR AUTHOR'S ORGANIZ ATION 09/23/2024 [facility] EPIC Care Teams (unrecognized [...] Dates Mariann Lynn , DO Primary Care Pr ovider, Attending Provider Active Start: November 22, 2023 End: November 22, 2023 Electrocardiograph Repairer Relationship Specialty Start Date End Date Mariann Lynn DO [address] [place] [address] PCP - ACO Reach 09/28/22 Mariann Lynn DO [address] [place] [address] PCP - General Internal Medicine 11/13/22 Sameer Loera DO [address] [place] [address] Consulting Physician Neurology 07/10/23 Sebastian Hicks DPM [address] [place] [address] Consulting Physician Podiatry 07/10/23 Teresa Whitfield Consulting Physician Ophthalmology 07/10/23 Electrocardiograph Repairer Relationship Specialty Start Date End Date Mariann Lynn DO [address] [place] [address] PCP - ACO Reach 09/28/22 Mariann Lynn DO [address] [place] [address] PCP - General Internal Medicine 11/13/22 Sameer Loera DO [address] [place] [address] Consulting Physician Neurology 07/10/23 Sebastian Hicks DPM [address] [place] [address] Consulting Physician Podiatry 07/10/23 Teresa Whitfield Consulting Physician Ophthalmology 07/10/23 Electrocardiograph Repairer Relationship Specialty Start Date End Date Mariann Lynn DO [address] [place] [address] PCP - ACO Reach 09/28/22 Mariann Lynn DO [address] [place] [address] PCP - General Internal Medicine 11/13/22 Sameer Loera DO [address] [place] [address] Consulting Physician Neurology 07/10/23 Sebastian Hicks DPM [address] [place] [address] Consulting Physician Podiatry 07/10/23 Teresa Whitfield Consulting Physician Ophthalmology 07/10/23 Electrocardiograph Repairer Relationship Specialty Start Date End Date Mariann Lynn DO [address] [place] [address] PCP - ACO Reach 09/28/22 Mariann Lynn DO [address] [place] [address] PCP - General Internal Medicine 11/13/22 Sameer Loera DO [address] [place] [address] Consulting Physician Neurology 07/10/23 Sebastian Hicks DPM [address] [place] [address] Consulting Physician Podiatry 07/10/23 Teresa Whitfield Consulting Physician Ophthalmology 07/10/23 Electrocardiograph Repairer Relationship Specialty Start Date End Date Mariann Lynn DO [address] [place] [address] PCP - ACO Reach 09/28/22 Mariann Lynn DO [address] [place] [address] PCP - General Internal Medicine 11/13/22 Sameer Loera DO [address] [place] [address] Consulting Physician Neurology 07/10/23 Sebastian Hicks DPM [address] [place] [address] Consulting Physician Podiatry 07/10/23 Teresa Whitfield Consulting Physician Ophthalmology 07/10/23 Electrocardiograph Repairer Relationship Specialty Start Date End Date Mariann Lynn DO [address] [place] [address] PCP - ACO Reach 09/28/22 Mariann Lynn DO [address] [place] [address] PCP - General Internal Medicine 11/13/22 Sameer Loera DO [address] [place] [address] Consulting Physician Neurology 07/10/23 Sebastian Hicks DPM [address] [place] [address] Consulting Physician Podiatry 07/10/23 Teresa Whitfield Consulting Physician Ophthalmology 07/10/23 Electrocardiograph Repairer Relationship Specialty Start Date End Date Mariann Lynn DO [address] [place] [address] PCP - ACO Reach 09/28/22 Mariann Lynn DO [address] [place] [address] PCP - General Internal Medicine 11/13/22 Sameer Loera DO [address] [place] [address] Consulting Physician Neurology 07/10/23 Sebastian Hicks DPM [address] [place] [address] Consulting Physician Podiatry 07/10/23 Teresa Whitfield Consulting Physician Ophthalmology 07/10/23 Electrocardiograph Repairer Relationship Specialty Start Date End Date Mariann Lynn DO [address] [place] [address] PCP - ACO Reach 09/28/22 Mariann Lynn DO [address] [place] [address] PCP - General Internal Medicine 11/13/22 Sameer Loera DO [address] [place], [place] [id number] Consulting Physician Neurology 07/10/23 Sebastian Hicks DPM [address] [place] [address] Consulting Physician Podiatry 07/10/23 Teresa Whitfield Consulting Physician Ophthalmology 07/10/23 Electrocardiograph Repairer Relationship Specialty Start Date End Date Mariann Lynn DO [address] [place] [address] PCP - ACO Reach 09/28/22 Mariann Lynn DO [address] [place] [address] PCP - General Internal Medicine 11/13/22 Sameer Loera DO [address] [place] [address] Consulting Physician Neurology 07/10/23 Sebastian Hicks DPM [address] [place] [address] Consulting Physician Podiatry 07/10/23 Teresa Whitfield Consulting Physician Ophthalmology 07/10/23 Electrocardiograph Repairer Relationship Specialty Start Date End Date Mariann Lynn DO [address] [place] [address] PCP - ACO Reach 09/28/22 Mariann Lynn DO [address] [place] [address] PCP - General Internal Medicine 11/13/22 Sameer Loera DO [address] [address] [place] [address] Consulting Physician Neurology 07/10/23 Sebastian Hicks DPM [address] [place] [address] Consulting Physician Podiatry 07/10/23 Teresa Whitfield Consulting Physician Ophthalmology 07/10/23 Electrocardiograph Repairer Relationship Specialty Start Date End Date Mariann Lynn DO [address] [place] [address] PCP - ACO Reach 09/28/22 Mariann Lynn DO [address] [place] [address] PCP - General Internal Medicine 11/13/22 Sameer Loera DO [address] [place] [address] Consulting Physician Neurology 07/10/23 Sebastian Hicks DPM [address] [place] [address] Consulting Physician Podiatry 07/10/23 Teresa Whitfield Consulting Physician Ophthalmology 07/10/23 Electrocardiograph Repairer Relationship Specialty Start Date End Date Mariann Lynn DO [address] [place] [address] PCP - ACO Reach 09/28/22 Mariann Lynn DO [address] [place] [address] PCP - General Internal Medicine 11/13/22 Sameer Loera DO [address] [place] [address] Consulting Physician Neurology 07/10/23 Sebastian Hicks DPM [address] [place] [address] Consulting Physician Podiatry 07/10/23 Teresa Whitfield Consulting Physician Ophthalmology 07/10/23 Electrocardiograph Repairer Relationship Specialty Start Date End Date Mariann Lynn DO [address] [place] [address] PCP - ACO Reach 09/28/22 Mariann Lynn DO [address] [place] [address] PCP - General Internal Medicine 11/13/22 Sameer Loera DO [address] [place] [address] Consulting Physician Neurology 07/10/23 Sebastian Hicks DPM [address] [place] [address] Consulting Physician Podiatry 07/10/23 Teresa Whitfield Consulting Physician Ophthalmology 07/10/23 Electrocardiograph Repairer Relationship Specialty Start Date End Date Mariann Lynn DO [address] [place] [address] PCP - ACO Reach 09/28/22 Mariann Lynn DO [address] [place] [address] PCP - General Internal Medicine 11/13/22 Sameer Loera DO [address] [place] [address] Consulting Physician Neurology 07/10/23 Sebastian Hicks DPM [address] [place] [address] Consulting Physician Podiatry 07/10/23 Teresa Whitfield Consulting [...] or prosecute any alcohol or drug abuse patient.[facility] the event this information is protected by the Federal Confidentiality of Alcohol and Drug Abuse Patient Records regulations: The Federal rules restrict any use of the information to criminally investigate or prosecute any alcohol or drug abuse patient.[facility] the event this information is protected by the Federal Confidentiality of Alcohol and Drug Abuse Patient Records regulations: The Federal rules restrict any use of the information to criminally investigate or prosecute any alcohol or drug abuse patient.[facility] Reason for Visit (unrecogniz ed section and content) Reason Comments Cataract Evaluation Diabetes Reason Comments Pre-Op Exam Reason Comments Routine 6 Mo Follow Up Reason Onset Date Comments [place] lab order 07/08/2024 Reason Comments Medicare Annual Wellness Visit Subsequen t Routine 6 Mo Follow Up FOR RECORDS PERTAINING TO PATIENTS WHO ARE [...] BE BASED ON THE PRIMARY CLINICAL RECORDS. [facility] [employer] [facility]. provides no warranty or guarantee of the accuracy or completeness of information in this document.
--- NOTE | 2024-10-19 19:17 | ED.DENTAL1 ---
HPI - Dental/Oral General Chief complaint: Dental/Oral Stated complaint: BIT THROUGH TONGUE Time Seen by Provider: 10/19/24 19:12 Source: patient and family Mode of arrival: walk-in Limitations: no limitations History of Present Illness HPI Narrative: This 74-year-old who is not on blood thinners is brought to the emergency department by a family member. She lives at an assisted living facility. She states around 4 PM she was eating trail mix. She bit her tongue at that time. She has a small laceration at the anterior aspect of her tongue. It has not stopped bleeding. She denies any difficulty swallowing. She does have a history of seizures but denies that she had a seizure causing this injury. She denies any chest pain or shortness of breath. She states she does have episodes of dizziness that have been going on for the past week but is not having any dizziness now. She has a small V-shaped laceration approximately 0.5 cm to the left of the midline in the distal end of the tongue. It is not through and through. Related Data Allergies Allergy/AdvReac Type Severity Reaction Status Date / Time No Known Drug Allergies Allergy Verified 10/19/24 18:47 Review of Systems ROS Status of ROS 10 or more systems reviewed and unremarkable except as noted in history and below PFSH PFSH Social History Little interest or pleasure in doing things: not at all Feeling down, depressed, or hopeless: not at all Exam Narrative Exam Narrative: Vital signs and Nursing Notes reviewed: Patient is afebrile, blood pressure is elevated 180/80, General: Awake, alert, oriented, no acute distress, lying comfortably on the stretcher HEENT: Normocephalic atraumatic, mucous membranes are moist and pink, eyes are clear, normal conjunctiva, vision is grossly intact, there is a proximal 0.5 cm V-shaped laceration to the left of the midline at the mid to distal end of the tongue, mild active bleeding noted, no pulsatile bleeding, there is mild blood in the mouth from this laceration. The laceration is not through and through. Dentition is in good repair. Neck: Supple, no meningeal signs Chest: Lungs are clear to auscultation with good air entry, there is no wheezing rhonchi or rales appreciated no accessory muscle use, patient is speaking in complete sentences-no chest wall tenderness to palpation CVS: Regular rate and rhythm S1-S2, no murmurs rubs or gallops, pulses are brisk and equal bilaterally ABD: Soft, nondistended, nontender, no rebound guarding or rigidity, bowel sounds are normal, no pulsatile masses appreciated Extremities: Moving all extremities, no lower extremity tenderness or swelling noted Skin: Normal in appearance without rash,pallor, petechiae or purpura Neuro: No focal deficits Constitutional Vital Signs, click to edit/add: Last Vital Signs Temp 98.1 F 10/19/24 18:47 Pulse 91 H 10/19/24 18:47 Resp 16 10/19/24 20:35 BP 160/78 H 10/19/24 20:35 Pulse Ox 96 10/19/24 20:35 O2 Del Method Room Air 10/19/24 20:35 Course Vital Signs Vital signs: Vital Signs Temperature 98.1 F 10/19/24 18:47 Pulse Rate 91 H 10/19/24 18:47 Respiratory Rate 18 10/19/24 18:47 Blood Pressure 180/80 H 10/19/24 18:47 Temperature 98.1 F 10/19/24 18:47 Pulse Rate 91 H 10/19/24 18:47 Respiratory Rate 16 10/19/24 20:35 Blood Pressure 160/78 H 10/19/24 20:35 Pulse Oximetry 96 10/19/24 20:35 Oxygen Delivery Method Room Air 10/19/24 20:35 MDM - Dental/Oral MDM Narrative Medical decision making narrative: This 74-year-old female with a history of seizures but who denies that she had a seizure today presents for evaluation of bleeding from her tongue. The patient states she was eating trail mix and bit her tongue. She has a small laceration at the mid to distal end of the tongue with mild active bleeding. There is no pulsatile bleeding. The remainder of her exam is benign. Her blood pressure was noted to be elevated upon arrival. TXA was ordered and applied topically to the laceration of the distal end of her tongue with clinical improvement and cessation of bleeding. I explained to her that I would like to watch her for 30 minutes and if the bleeding has not recurred she will be discharged home. I suggested using ice over the area and avoid eating anything else for the rest of the day. She was reevaluated after 30 minutes and there is still no bleeding. She will be discharged home at this time. I encouraged her to only drink cold liquids and to apply ice as needed if needed. She verbalizes understanding. She is otherwise stable for discharge. Discharge Plan Discharge Chief Complaint: Dental/Oral Clinical Impression: Laceration of tongue Patient Disposition: Home, Self-Care Time of Disposition Decision: 20:25 Condition: Good Mode of Transportation: Private Vehicle Print Language: Taiwanese Additional Instructions: Apply pressure and use ice if bleeding to your tongue should recur. Return to the emergency department if you cannot get the bleeding to stop. Referrals: DENZEL IYER [Primary Care Provider, Internal Medicine] - 1 week Discharge Date/Time: 10/19/24 20:40
[2024-10-19] MEDS: TRANEXAMIC ACID 1,000 MG/10 ML AMPUL 200 MG TOPICAL (19:34)
[2024-10-19 20:35] VITALS: BP 160/78; O2SAT 96
== END 2024-10-19 20:40 | disposition home or self-care (01) ==
PROVIDERS: Emergency Provider Emergency Medicine; PCP Internal Medicine
DX: S01.512A Laceration without foreign body of oral cavity, initial encounter (principal); R56.9 Unspecified convulsions
CPT/HCPCS: 99282